=== PATIENT | female | born 1980 | race Caucasian/White ===

== ENCOUNTER → 2017-11-26 12:02 | Outpatient (CLI) | payer OTHER, SELFPAY | PROVIDERS: PCP Physician Assistant; Visit Provider Physician Assistant | DX: R00.2 Palpitations (principal) | CPT/HCPCS: 93225; 93226 ==

== ENCOUNTER → 2018-03-30 14:31 | Outpatient (REF) | payer OTHER, SELFPAY ==
[2018-03-30 18:44] LABS: Basophils % 0.5 % (0.1-2.0); Eosinophils # 0.1 K/mm3 (0.0-0.4); Eosinophils % 1.5 % (0.1-12.0); Hematocrit 38.8 % (37.0-47.0); Hemoglobin 13.1 g/dL (12.2-16.2); Lymphocytes # 1.7 K/mm3 (0.7-4.5); Lymphocytes % 30.7 K/mm3 (10-50); Mean Corpuscular HGB Conc 33.8 g/dL (31.8-35.4); Mean Corpuscular Hemoglobin 30.8 pg (27.0-31.2); Mean Corpuscular Volume 91.2 fl (81-99); Mean Platelet Volume 8.4 fl (7.4-10.4); Monocytes # 0.3 K/mm3 (0.1-1.0); Monocytes % 4.8 % (1.7-9.3); Neutrophils # 3.4 K/mm3 (1.8-7.8); Neutrophils % 62.5 % (37.0-80.0); Platelet Count 307 K/mm3 (142-424); Red Blood Count 4.25 M/mm3 (4.20-5.40); Red Cell Distribution Width 12.3 % (11.5-17.5); White Blood Count 5.4 K/mm3 (4.8-10.8)
[2018-03-30 19:10] LABS: Alanine Aminotransferase 13 U/L (12-78); Albumin Level 4.2 gm/dL (3.4-5.0); Albumin/Globulin Ratio 1.4 (1.1-1.8); Alkaline Phosphatase 67 U/L (46-116); Aspartate Amino Transferase 10 U/L (15-37); Bilirubin,Total 0.6 mg/dL (0.2-1.0); Blood Urea Nitrogen 7 mg/dL (7-18); Calcium 9.1 mg/dL (8.5-10.1); Carbon Dioxide 28 mmol/L (21.0-32.0); Chloride 103 mmol/L (98-107); Creatinine,Serum 0.73 mg/dL (0.55-1.02); Estimated Glomerular Filt Rate 90 ml/min (>60); Free T4 (Free Thyroxine) 0.91 ng/dl (0.76-1.46); GFR (African American) 109 ML/MIN (>60); Globulin 3.1 gm/dl (1.3-3.2); Glucose 90 mg/dL (74-106); Sodium 140 mmol/L (136-145); Thyroid Stimulating Hormone 1.85 uIU/ml (0.358-3.740); Total Protein,Serum 7.3 gm/dL (6.4-8.2)
[2018-04-01 14:52] LABS: Folate 9.5 ng/mL (>3.0); Vitamin B12 1063 pg/mL (232-1245); Vitamin D 25 Hydroxy 27.7 ng/mL (30.0-100.0)
[2018-04-01 14:53] LABS: Thyroid Peroxidase Antibodies 9 IU/mL (0-34)
== END ==
LOC: LAB 14:31
PROVIDERS: Visit Provider Physician Assistant
DX: R20.0 Anesthesia of skin (principal)
CPT/HCPCS: 80053; 82607; 82652; 82746; 84439; 84443; 85025; 86376

== ENCOUNTER → 2018-04-08 09:33 | Outpatient (CLI) | payer OTHER, SELFPAY ==
--- NOTE | 2018-04-08 09:34 | FL_ITS ---
FL upper GI w air HISTORY: Dysphasia, bloating, vomiting ITS.REASON: dysphasia ORDERING PHYSICIAN: Franklyn Man MD PATIENT AGE: 37 years Comparison: None FINDINGS: The esophagus, stomach, and duodenum have an unremarkable appearance. There is no evidence of hiatal hernia. No ulcer or mass evident. No mucosal abnormalities apparent. There is normal peristalsis. The duodenal C-loop is nondisplaced. There is been prior cholecystectomy. FLUOROSCOPY TIME : 1 minute and 46 seconds. IMPRESSION: Negative upper GI
== END ==
PROVIDERS: Family Provider Physician Assistant; PCP Physician Assistant; Visit Provider Surgery
DX: R13.10 Dysphagia, unspecified (principal)
CPT/HCPCS: 74247

== ENCOUNTER → 2018-06-01 13:37 | Outpatient (CLI) | payer OTHER, SELFPAY ==
[2018-06-01 13:51] LABS: Basophils # 0.1 K/mm3 (0-0.2); Basophils % 1.6 % (0.1-2.0); Eosinophils % 0.9 % (0.1-12.0); Hemoglobin 13.6 g/dL (12.2-16.2); Lymphocytes # 1.3 K/mm3 (0.7-4.5); Mean Corpuscular HGB Conc 33.2 g/dL (31.8-35.4); Mean Corpuscular Hemoglobin 30.5 pg (27.0-31.2); Mean Corpuscular Volume 91.7 fl (81-99); Mean Platelet Volume 8.5 fl (7.4-10.4); Monocytes # 0.2 K/mm3 (0.1-1.0); Monocytes % 5.1 % (1.7-9.3); Neutrophils % 55.4 % (37.0-80.0); Platelet Count 285 K/mm3 (142-424); Red Blood Count 4.47 M/mm3 (4.20-5.40); Red Cell Distribution Width 12.4 % (11.5-17.5); White Blood Count 3.6 K/mm3 (4.8-10.8)
[2018-06-01 14:24] LABS: Alanine Aminotransferase 10 U/L (12-78); Albumin Level 4.3 gm/dL (3.4-5.0); Albumin/Globulin Ratio 1.4 (1.1-1.8); Alkaline Phosphatase 61 U/L (46-116); Anion Gap 11.8 mEq/L (5-15); Aspartate Amino Transferase 5 U/L (15-37); Bilirubin,Total 0.7 mg/dL (0.2-1.0); Blood Urea Nitrogen 6 mg/dL (7-18); Calcium 9.2 mg/dL (8.5-10.1); Carbon Dioxide 29 mmol/L (21.0-32.0); Chloride 105 mmol/L (98-107); Creatinine,Serum 0.72 mg/dL (0.55-1.02); Estimated Glomerular Filt Rate 92 ml/min (>60); GFR (African American) 111 ML/MIN (>60); Globulin 3.1 gm/dl (1.3-3.2); Glucose 88 mg/dL (74-106); Potassium 3.8 mmoL/L (3.5-5.1); Sodium 142 mmol/L (136-145); Total Protein,Serum 7.4 gm/dL (6.4-8.2)
[2018-06-01 14:26] LABS: C-Reactive Protein < 0.2 mg/L (0.0-0.9)
[2018-06-01 14:49] LABS: Erythrocyte Sedimentation Rate 1 mm/hr (0-20)
[2018-06-02 13:13] LABS: Anti-Centromere B Antibodies <0.2 AI (0.0-0.9); Anti-Jo-1 <0.2 AI (0.0-0.9); Anti-Smith Antibody <0.2 AI (0.0-0.9); Antichromatin Antibodies <0.2 AI (0.0-0.9); Antiscleroderma-70 Antibodies <0.2 AI (0.0-0.9); RNP Antibodies <0.2 AI (0.0-0.9); Sjogren's Anti-SS-A <0.2 AI (0.0-0.9); Sjogren's Anti-SS-B <0.2 AI (0.0-0.9)
[2018-06-02 13:18] LABS: Anti-DNA (DS) Ab Qn 1 IU/mL (0-9); RA Latex Turbid. <10.0 IU/mL (0.0-13.9)
[2018-06-04 15:19] LABS: Anti-Cyclic Citrullinated Pept 5 units (0-19)
== END ==
PROVIDERS: PCP Physician Assistant; Visit Provider Physician Assistant
DX: M25.50 Pain in unspecified joint (principal); Z82.61 Family history of arthritis
CPT/HCPCS: 80053; 85025; 85651; 86140; 86200; 86225; 86235; 86431

== ENCOUNTER → 2018-07-02 13:04 | Outpatient (CLI) | payer OTHER, SELFPAY | PROVIDERS: PCP Physician Assistant; Visit Provider Internal Medicine | DX: R00.1 Bradycardia, unspecified (principal); R00.2 Palpitations; R07.9 Chest pain, unspecified | CPT/HCPCS: 93270 ==

== ENCOUNTER → 2018-07-06 07:37 | Outpatient (CLI) | payer SELFPAY ==
--- NOTE | 2018-07-06 07:38 | CA_ITS ---
PROCEDURE: 2-D M-mode and color Doppler study INDICATIONS FOR THE TEST: Chest pain + COPD Heart Murmur Tobacco Smoking Palpitations+ Fatigue Syncope Edema Hypertension Diabetes Mellitus Rheumatic Fever SOB KNIGHT Obesity Hyperlipidemia Family History HD Additional History BREAST IMPLANTS PATIENT INFORMATION HEIGHT: 63 WEIGHT:150 GENDER: Female B/P:113/71 2-D/M-MODE INTERPRETATION: 2-D MEASUREMENTS OBSERVED VALUES IN CMS Right Ventricular Dimension (RVDd) 2.2 Interventricular Septum (Thickness)(IVsd) 0.9 Left Ventricular Internal Dimensions(LVIDd) 4.6 Left Ventricular Posterior Wall (Thickness)(LVPWd) 0.4 Aortic Root 2.6 Aortic Cusp Separation 1.9 Left Atrial Dimensions (LAD) 3.1 2D 1. Left atrium is normal size, left ventricle is normal size, there is no concentric left ventricular hypertrophy, visually estimated ejection fraction 55% with no regional wall motion abnormality. 2. The right atrium and right ventricle are normal size and contractility. 3. The aortic, mitral and tricuspid valvular grossly normal. 4. The pulmonic valve is poorly visualized. 5. No significant pericardial effusion noted. DOPPLER INTERROGATION: Doppler interrogation of the aortic, mitral and tricuspid valvular presence of mild mitral and tricuspid regurgitation, tricuspid regurgitation jet velocity is inadequate for calculation of the right ventricular systolic pressure, diastolic parameters are within normal range. CONCLUSION: 1. Normal left ventricular size, preserved left ventricular systolic function, visually estimated ejection fraction of 55% with no regional wall motion abnormality, diastolic parameters are within normal range. 2. Mild mitral and tricuspid regurgitation 3. No significant pericardial effusion noted.
== END ==
PROVIDERS: PCP Physician Assistant; Visit Provider Internal Medicine
DX: R00.1 Bradycardia, unspecified (principal); R00.2 Palpitations; R07.9 Chest pain, unspecified
CPT/HCPCS: 93306

== ENCOUNTER → 2018-09-09 18:56 | Outpatient (CLI) | payer BC, SELFPAY ==
[2018-09-09 19:17] LABS: Basophils % 0.9 % (0.1-2.0); Eosinophils # 0.1 K/mm3 (0.0-0.4); Eosinophils % 2.2 % (0.1-12.0); Hematocrit 38.3 % (37.0-47.0); Hemoglobin 12.5 g/dL (12.2-16.2); Lymphocytes # 1.3 K/mm3 (0.7-4.5); Lymphocytes % 32.4 % (10-50); Mean Corpuscular HGB Conc 32.8 g/dL (31.8-35.4); Mean Corpuscular Hemoglobin 30.5 pg (27.0-31.2); Mean Corpuscular Volume 92.9 fl (81-99); Mean Platelet Volume 7.8 fl (7.4-10.4); Monocytes # 0.2 K/mm3 (0.1-1.0); Monocytes % 5.8 % (1.7-9.3); Neutrophils # 2.4 K/mm3 (1.8-7.8); Neutrophils % 58.7 % (37.0-80.0); Platelet Count 316 K/mm3 (142-424); Red Blood Count 4.12 M/mm3 (4.20-5.40); Red Cell Distribution Width 12.8 % (11.5-17.5); White Blood Count 4.1 K/mm3 (4.8-10.8)
[2018-09-09 20:03] LABS: Alanine Aminotransferase 19 U/L (12-78); Albumin Level 4.2 gm/dL (3.4-5.0); Albumin/Globulin Ratio 1.4 (1.1-1.8); Alkaline Phosphatase 63 U/L (46-116); Anion Gap 14.2 mEq/L (5-15); Aspartate Amino Transferase 7 U/L (15-37); Bilirubin,Total 0.7 mg/dL (0.2-1.0); Blood Urea Nitrogen 11 mg/dL (7-18); Calcium 9.3 mg/dL (8.5-10.1); Carbon Dioxide 28 mmol/L (21.0-32.0); Chloride 102 mmol/L (98-107); Chol/HDL Ratio 2.6 (1-3.5); Cholesterol 158 mg/dL (140-200); Creatinine,Serum 0.75 mg/dL (0.55-1.02); Estimated Glomerular Filt Rate 87 ml/min (>60); GFR (African American) 106 ML/MIN (>60); Glucose 98 mg/dL (74-106); HDL Cholesterol 60 mg/dL (29-89); LDL Cholesterol 87 mg/dL (0-130); Potassium 4.2 mmoL/L (3.5-5.1); Sodium 140 mmol/L (136-145); T4 (Thyroxine) 7.7 ug/dl (4.7-13.3); Thyroid Stimulating Hormone 1.16 uIU/ml (0.358-3.740); Total Protein,Serum 7.2 gm/dL (6.4-8.2); Triglycerides 53 mg/dL (30-200); VLDL Cholesterol 11 mg/dL (0-40)
[2018-09-11 11:18] LABS: Vitamin D 25 Hydroxy 33.7 ng/mL (30.0-100.0)
== END ==
PROVIDERS: Visit Provider Physician Assistant
DX: Z00.00 Encounter for general adult medical examination without abnormal findings (principal)
CPT/HCPCS: 80053; 80061; 82652; 84436; 84443; 85025

== ENCOUNTER → 2019-01-05 11:52 | Outpatient (CLI) | payer BC, SELFPAY ==
--- NOTE | 2019-01-05 11:55 | XR_ITS ---
XR KUB HISTORY: ITS.REASON: pain ORDERING PHYSICIAN: Chiara Spears APRN PATIENT AGE: 38 years COMPARISON: None FINDINGS There is minimal lumbar scoliosis convex left. There is mild amount of retained colonic feces. Surgical clips in the right upper quadrant of pelvis are noted. No intestinal obstruction or free air. Small sclerotic focus overlies the left ilium inferiorly in the left femoral neck and may be due to bone islands. There may be a small stone along the lower pole of left kidney at 3 mm. IMPRESSION: 1. Mild fecal stasis. 2. Possible left renal stone
== END ==
PROVIDERS: PCP Nurse Practitioner Family; Visit Provider Nurse Practitioner Family
DX: R10.9 Unspecified abdominal pain (principal); R82.90 Unspecified abnormal findings in urine
CPT/HCPCS: 74018; 87086; 87210

== ENCOUNTER → 2019-02-17 14:25 | Outpatient (CLI) | payer BC, SELFPAY ==
--- NOTE | 2019-02-17 14:27 | CT_ITS ---
CT abdomen pelvis wo con CLINICAL INDICATION: Lower abdominal pain, possible renal calculi. ITS.REASON: pain ORDERING PHYSICIAN: Abel Rivera MD PATIENT AGE: 38 years COMPARISON: None TECHNIQUE: Axial images obtained with sagittal and coronal reformats. All CT scans at the facility use one or more dose reduction, viz: automated exposure control, ma/kV adjustment per patient size (including targeted exams where dose is matched to indication, i.e. head), or iterative reconstruction technique. FINDINGS: Lower thorax: Calcified granuloma in the right lung base medially. Bilateral breast implants Postcholecystectomy change. The liver, spleen, adrenal glands, and pancreas have an unremarkable unenhanced appearance. No renal or ureteral calculi. There is minimal prominence of the renal pelves on both sides nonspecific. The urinary bladder has an unremarkable appearance. No evidence of appendicitis, diverticulitis, intestinal structures, or free air. Prior hysterectomy. Surgical clips are present in both sides of the pelvis. No pelvic mass abnormal fluid collection or focal inflammatory change. There is a small approximately 6 mm hyperdensity in the central vaginal region etiology indeterminate. No acute bony findings. There are a few scattered sclerotic foci noted in the pelvis and left hip which may be due to small bone islands. IMPRESSION: No acute abdominal or pelvic findings. No renal or ureteral calculi. There is minimal prominence of both renal pelves which is nonspecific.
== END ==
PROVIDERS: PCP Nurse Practitioner Family; Visit Provider Urology
DX: N20.0 Calculus of kidney (principal); R10.9 Unspecified abdominal pain
CPT/HCPCS: 74176

== ENCOUNTER → 2019-04-20 16:38 | Outpatient (CLI) | payer BC, SELFPAY ==
[2019-04-20 17:02] LABS: Basophils # 0.1 K/mm3 (0-0.2); Eosinophils # 0.1 K/mm3 (0.0-0.4); Eosinophils % 1.6 % (0.1-12.0); Hematocrit 38.7 % (37.0-47.0); Hemoglobin 12.8 g/dL (12.2-16.2); Lymphocytes # 1.7 K/mm3 (0.7-4.5); Lymphocytes % 33.9 % (10-50); Mean Corpuscular HGB Conc 33.2 g/dL (31.8-35.4); Mean Corpuscular Hemoglobin 30.1 pg (27.0-31.2); Mean Corpuscular Volume 90.6 fl (81-99); Mean Platelet Volume 7.9 fl (7.4-10.4); Monocytes # 0.3 K/mm3 (0.1-1.0); Monocytes % 5.6 % (1.7-9.3); Neutrophils # 2.9 K/mm3 (1.8-7.8); Neutrophils % 57.8 % (37.0-80.0); Platelet Count 305 K/mm3 (142-424); Red Blood Count 4.27 M/mm3 (4.20-5.40); Red Cell Distribution Width 12.5 % (11.5-17.5)
[2019-04-22 16:41] LABS: Peripheral Smear Review Scanned Result
== END ==
PROVIDERS: Visit Provider Physician Assistant
DX: D72.9 Disorder of white blood cells, unspecified (principal)
CPT/HCPCS: 85025

== ENCOUNTER → 2020-04-21 10:01 | Outpatient (CLI) | payer OTHER, SELFPAY ==
--- NOTE | 2020-04-21 10:09 | XR_ITS ---
PROCEDURE: XR ELBOW RT MIN 3V CLINICAL INDICATION: right elbow pain COMPARISON: No exams were available for comparison FINDINGS: No fracture or dislocation. No lytic or blastic change. There is normal mineralization. The joint spaces are well-preserved. No significant degenerative/arthritic changes. No erosive changes evident. Other findings:None. IMPRESSION: No acute findings. Dictated by: Dr. Skip Marino MD 04/21/2020 10:27 Dr. Skip Marino MD in [place] 04/21/2020 10:27
== END ==
PROVIDERS: PCP Physician Assistant; Visit Provider Orthopaedic Surgery
DX: M77.11 Lateral epicondylitis, right elbow (principal); H93.19 Tinnitus, unspecified ear
CPT/HCPCS: 73080

== ENCOUNTER 2020-05-16 16:56 | Emergency (ER) | payer OTHER, SELFPAY ==
[2020-05-16 17:33] VITALS: BP 126/88; PULSE 71; RESP 21; TEMP 36.9; O2SAT 98; BMI 24.4
--- NOTE | 2020-05-16 17:37 | HMH.EDUTC ---
[facility] [place] Disposition Clinical Impression: Encounter for laboratory testing for COVID-19 virus Disposition: Home, Self-Care Condition on Discharge: Good Instructions: Preventing the Spread of Coronavirus Discharge Instructions Additional Instructions: *Monitor Temp, Over the counter Motrin or Tylenol as directed/as needed Tylenol every 4 hours and Motrin every 6 hours (as long as your family doctor has told you that you can take it) for fever or pain. and straight to ER if unable to lower temp less than 101.0 after medication given *Warm salt water gargles may help to soothe the throat *Throat Lozenges *Warm fluids like tea with honey may help to soothe the throat *Sleep elevated *Humidifier/Vaporizer Follow up IMMEDIATELY for new or worsening symptoms or no Noticeable improvement over the next 48-72 hours. 911 for difficulty breathing or swallowing You was tested for today for COVID19 your test result should be back later this evening, you may call back later this evening to see if your test results are back and the result You was given a handout with instructions for Self Quarantine and Self isolation for while you wait on test results and what to do if they are positive Referrals: Lizette Leon PA [Primary Care Provider] - As needed Forms: Work/School Release Time of Disposition: 17:58 Medical Decision Making - Roger Inquiry Pt receiving controlled substance: No Roger was queried for this patient: No Vital Signs: 05/16/20 17:33 Temperature 98.4 F Temperature Source Oral Pulse Rate [Right Brachial] 71 Respiratory Rate 21 Blood Pressure [Right Arm] 126/88 Blood Pressure Mean [Right Arm] 100 Blood Pressure Source [Right Arm] Automatic Cuff Blood Pressure Position [Right Arm] Sitting 02 Sat by Pulse Oximetry 98 Oxygen Delivery Method Room Air Orders (Tests/Meds): ORDERS Category Date Time Status Covid-19 Nasal PCR ([facility]) Routine Lab 05/16/20 17:30 Received [facility] [place] HPI - General Stated complaint: Sore throat,SOB,Weakness,Wants COV test Time Seen by Provider: 05/16/20 17:37 Mode of Arrival: Ambulatory Source of Information: Patient Limitations: No Limitations Description of Symptoms (Recalled from Triage Doc. by RN): PATIENT REQUESTING COVID TEST. DENIES SYMPTOMS OR ANY KNOWN DIRECT EXPOSURE HEENT Symptoms (Recalled from RN notes): No Resp Symptoms (Recalled from RN notes): No Skin Symptoms (Recalled from RN notes): No MS Symptoms (Recalled from RN notes): No Functional Status (Recalled from RN notes): WNL - History of Present Illness Provider Complaint: Patient states that she has been around several people that is now in quarantine for being around someone that is positive for COVID States she has had cough on and off and feeling achy all over so today she was still feeling achy and wanted to come in and get tested for COVID - Related Data Allergies Allergy/AdvReac Type Severity Reaction Status Date / Time No Known Allergies Allergy Verified 04/21/20 11:44 - Worker's Comp Is this a Worker's Comp case?: No [facility] History - Hepatitis A Screen Drug use history?: No High risk sexual behaviors?: No History of sexually transmitted infection?: No Currently employed?: No Childcare worker?: No Do you have indoor plumbing?: Yes Do you have electricity?: Yes Attestation statement:: This patient has been screened for Hepatitis A risk factors. I have reviewed the patient's past medical history: Yes Medical History: Reports:: Anxiety, Migraine Denies:: Diabetes Mellitus Type 1, Diabetes Mellitus Type 2, Internal Pacemaker, Lung Disease, Seizures Laterality Cases: Right: Arthroscopy Knee Other Surgeries: Yes: Cholecystectomy, Hysterectomy-Total, Hysterectomy-Partial, Tubal Ligation. No: Pacemaker Amputation: No Fractures: No - Social History Smoking Status: Never smoker Alcohol Intake: never Substance Use Type: denies use Occupational Status: other Housing: house Household Me
[2020-05-16 18:27] VITALS: BP 126/88; PULSE 71; RESP 21; TEMP 36.9; O2SAT 98
== END 2020-05-16 18:30 | disposition home or self-care (01) ==
PROVIDERS: Emergency Provider Nurse Practitioner; PCP Physician Assistant
DX: Z20.828 Contact with and (suspected) exposure to other viral communicable diseases (principal); R06.02 Shortness of breath; F41.9 Anxiety disorder, unspecified; G43.709 Chronic migraine without aura, not intractable, without status migrainosus
CPT/HCPCS: 99201; U0003

== ENCOUNTER 2020-05-23 15:30 | Outpatient (RCR) | payer OTHER, SELFPAY ==
--- NOTE | 2020-04-25 16:12 | HMH.OTOPEV ---
OT Inpatient Evaluation Rehab OT Outpatient Eval Start: 04/25/20 16:00 Freq: Status: Active Protocol: Document 04/25/20 16:00 LISBETH (Rec: 04/25/20 16:12 LISBETH [id number]) Electronically Signed By Brianne Islas OT 04/25/20 16:00 Outpatient Therapy Subjective History Subjective History 39 year old female referred to OP OT services for R tennis elbow. Patient verbalize having pain in R elbow since December 2019. Patient recieved x- ray on 04/21/20 with no acute findings. Patient seen ortho on 04/21/20 and referred patient to OP services with follow up in 6 weeks. Patient verbalize having increase pain levels at night and difficulty holding on to weighted household items such as tea pitcher. Chief Complaint Pain Symptom Type Ache Symptoms Relieved By Nothing Prior Functional Limitations None Current Functional Limitations Reaching,Lifting,Sleeping Symptom Description Constant and Continuous, Constant but Variable Level of pain today (0-10) 3 Pain scale - at its best (0-10) 3 Pain scale - at its worst (0-10) 8 Shoulder/Elbow Eval Shoulder Objective Measurements Elbow Objective Measurements Elbow Special Tests Resistive Tennis Elbow (Cozen's) Test Positive Right Wrist/Hand Eval Wrist Manual Muscle Testing Right Wrist Extension Strength Grade 3+ Fair+ Wrist Flexion Strength Grade 3+ Fair+ Plastic Production Machine Setter/Pinch Strength Plastic Production Machine Setter Strength Measurement (lbs) 40 Left Plastic Production Machine Setter Strength Measurement (lbs) 80 OT Outpatient Assessment Impairments Problems/Impairments Palpation Tenderness,Impaired Range of Motion,Impaired Strength,Impaired Lifting, Subjective C/O Pain Prognosis Rehab Potential Good Clinical Impression Consistent with Diagnosis Yes Short Term Goals Number of Weeks 2 Increase Strength Yes: R passenger barge master strength to 50# and R wrist flex/extend: 3+ to 4-/5 Decrease Subjective C/O Pain Yes: 6/10 at worst Patient to be Ind w/ HEP Yes: Isometric exer Patient to be Ind w/ Advanced HEP Yes: strengthening Deputy Controller Goals Number of Weeks 4 Increase Strength Yes: R passenger barge master strength to 60# and R wrist flex/extend 4- to
== END 2020-07-04 10:16 | disposition home or self-care (01) ==
LOC: OT 15:30
PROVIDERS: PCP Physician Assistant; Visit Provider Orthopaedic Surgery
DX: M77.11 Lateral epicondylitis, right elbow (principal)
CPT/HCPCS: 97014; 97035; 97110; 97140; 97165; 97530; G0283

== ENCOUNTER 2020-05-26 14:50 | Emergency (ER) | payer OTHER, SELFPAY ==
--- NOTE | 2020-05-26 15:25 | HMH.EDUTC ---
[facility] [place] Disposition Clinical Impression: Fever Qualifiers: Fever type: unspecified Qualified Code(s): R50.9 - Fever, unspecified Disposition: Home, Self-Care Condition on Discharge: Good Instructions: Preventing the Spread of Coronavirus Discharge Instructions Additional Instructions: You have been tested for COVID19. Your test results should be back later tonight. Please isolate yourself as if you are positive until test results received. Referrals: Lizette Leon PA [Primary Care Provider] - Time of Disposition: 15:59 Medical Decision Making - Roger Inquiry Pt receiving controlled substance: No Vital Signs: 05/26/20 15:28 Temperature 98.4 F Temperature Source Oral Pulse Rate [Right Brachial] 70 Respiratory Rate 19 Blood Pressure [Right Arm] 113/68 Blood Pressure Mean [Right Arm] 83 Blood Pressure Source [Right Arm] Automatic Cuff Blood Pressure Position [Right Arm] Sitting 02 Sat by Pulse Oximetry 98 Oxygen Delivery Method Room Air - Lab Data Lab results reviewed: Yes: I reviewed the patient's lab results. Orders (Tests/Meds): ORDERS Category Date Time Status Covid-19 Nasal PCR ([facility]) Routine Lab 05/26/20 15:30 Received [facility] [place] HPI - General Stated complaint: strept test sore throat fever Time Seen by Provider: 05/26/20 15:25 - History of Present Illness Provider Complaint: Fever, sore throat, cough X 2 days. Has had some body aches and chills. No vomiting or diarrhea. No loss of taste or smell. Children had strep last week. Onset (ago): day(s) (2) Location: mouth Relieving factors: none Exacerbating factors: none Associated symptoms: fever/chills Treatments prior to arrival: none - Related Data Home Medications Medication Instructions Recorded Confirmed topiramate 25 mg tablet 25 mg PO BID 05/26/20 05/26/20 Allergies Allergy/AdvReac Type Severity Reaction Status Date / Time No Known Allergies Allergy Verified 05/26/20 14:20 [facility] History - Hepatitis A Screen Attestation statement:: This patient has been screened for Hepatitis A risk factors. I have reviewed the patient's past medical history: Yes Medical History: Reports:: Anxiety, Migraine Denies:: Diabetes Mellitus Type 1, Diabetes Mellitus Type 2, Internal Pacemaker, Lung Disease, Seizures Laterality Cases: Right: Arthroscopy Knee Other Surgeries: Yes: Cholecystectomy, Hysterectomy-Total, Hysterectomy-Partial, Tubal Ligation. No: Pacemaker Amputation: No Fractures: No Comment: breast augmentation, - Social History Smoking Status: Never smoker Alcohol Intake: never Substance Use Type: denies use Occupational Status: employed Housing: house Household Members: children, spouse - Psychiatric History Pschychiatric History:: Reports:: Anxiety Family Hx:: Cancer, Coronary Artery Disease, Thyroid Disorder Comment: CELIAC DISEASE ,RA, SISTER HAS BREAST CANCER ROS Obtained: Yes All systems reviewed & no additional complaints - Constitutional Constitutional: Reports body ache, Reports chills, Reports fever(s) - ENT Ears, Nose, Mouth, and Throat: Reports sore throat - Respiratory Respiratory: Yes cough Physical Exam - General General appearance: alert, in no apparent distress - Head Head exam: atraumatic, normocephalic, normal inspection - Eye Eye exam: Present: normal appearance, PERRL, EOMI - ENT ENT exam: Present: normal exam, normal oropharynx, mucous membranes moist, TM's normal bilaterally, normal external ear exam - Neck Neck exam: Present: normal inspection, full ROM, trachea midline. Absent: meningismus, lymphadenopathy - Chest Chest inspection: Present: normal inspection, symmetric chest wall rise. Absent: tenderness - Respiratory Respiratory exam: Present: normal lung sounds bilaterally. Absent: respiratory distress - Cardiovascular Cardiovascular exam: Present: regular rate, normal rhythm. Absent: JVD - Abdominal Exam Abdominal exam: Present:
[2020-05-26 15:28] VITALS: BP 113/68; PULSE 70; RESP 19; TEMP 36.9; O2SAT 98; BMI 24.6
[2020-05-26 16:08] VITALS: BP 113/68; PULSE 70; RESP 19; TEMP 36.9; O2SAT 98
[2020-05-26 18:08] LABS: UTC Influenza A Antigen Negative (Negative); UTC Influenza B Antigen Negative (Negative)
[2020-05-26 18:09] LABS: UTC Strep Screen (Rapid) Negative (Negative)
--- NOTE | 2020-05-26 19:24 | PC.NURSE ---
PT CALLED AND NOTIFIED OF POSITIVE COVID TEST
== END 2020-05-26 16:10 | disposition home or self-care (01) ==
PROVIDERS: Emergency Provider Physician Assistant; PCP Physician Assistant
DX: U07.1 COVID-19 (principal); G43.709 Chronic migraine without aura, not intractable, without status migrainosus; F41.9 Anxiety disorder, unspecified; Z79.899 Other long term (current) drug therapy
CPT/HCPCS: 87804; 87880; 99202; U0003

== ENCOUNTER 2020-06-05 13:18 | Emergency (ER) | payer OTHER, SELFPAY ==
[2020-06-05 13:30] VITALS: BP 126/86; PULSE 60; RESP 20; TEMP 36.7; O2SAT 100; BMI 23.2
--- NOTE | 2020-06-05 13:42 | HMH.EDUTC ---
[facility] [place] Disposition Clinical Impression: COVID-19 Disposition: Home, Self-Care Condition on Discharge: Good Instructions: Preventing the Spread of Coronavirus Discharge Instructions Additional Instructions: Drink plenty of fluids. Take tylenol for pain or fever. Follow up with your regular doctor. GO TO THE ER FOR ANY WORSENING SYMPTOMS Referrals: Lizette Leon PA [Primary Care Provider] - Time of Disposition: 13:43 Medical Decision Making - Medical Records Medical records reviewed: No: I reviewed the patient's medical records. - Roger Inquiry Pt receiving controlled substance: No Vital Signs: 06/05/20 13:30 06/05/20 13:50 Temperature 98.1 F 98.1 F Temperature Source Oral Pulse Rate 60 Pulse Rate [Left Brachial] 60 Respiratory Rate 20 20 Blood Pressure 126/86 Blood Pressure [Left Arm] 126/86 Blood Pressure Mean [Left Arm] 99 Blood Pressure Source [Left Arm] Automatic Cuff Blood Pressure Position [Left Arm] Sitting 02 Sat by Pulse Oximetry 100 Oxygen Delivery Method Room Air Orders (Tests/Meds): ORDERS Category Date Time Status Covid-19 Nasal PCR ([facility]) Routine Lab 06/05/20 13:35 Received [facility] [place] HPI - General Stated complaint: covid positive Time Seen by Provider: 06/05/20 13:42 - History of Present Illness Provider Complaint: She tested positive for covid last week. She states that she has not had any symptoms in the past 2 days. - Related Data Previous Rx's Medication Instructions Recorded topiramate 25 mg tablet 25 mg PO BID #180 tab 05/26/20 Allergies Allergy/AdvReac Type Severity Reaction Status Date / Time No Known Allergies Allergy Verified 05/26/20 14:20 [facility] History - Hepatitis A Screen Attestation statement:: This patient has been screened for Hepatitis A risk factors. I have reviewed the patient's past medical history: Yes Medical History: Reports:: Anxiety, Migraine Denies:: Diabetes Mellitus Type 1, Diabetes Mellitus Type 2, Internal Pacemaker, Lung Disease, Seizures Laterality Cases: Right: Arthroscopy Knee Other Surgeries: Yes: Cholecystectomy, Hysterectomy-Total, Hysterectomy-Partial, Tubal Ligation. No: Pacemaker Amputation: No Fractures: No Comment: breast augmentation, - Social History Smoking Status: Never smoker Alcohol Intake: never Substance Use Type: denies use Occupational Status: other Housing: house Household Members: children, spouse - Psychiatric History Pschychiatric History:: Reports:: Anxiety Family Hx:: Cancer, Coronary Artery Disease, Thyroid Disorder Comment: CELIAC DISEASE ,RA, SISTER HAS BREAST CANCER ROS Obtained: Yes All systems reviewed & no additional complaints - Constitutional Constitutional: Reports system reviewed and no additional complaints, except as docu - Eyes Eyes: Reports system reviewed and no additional complaints, except as docu - ENT Ears, Nose, Mouth, and Throat: Reports system reviewed and no additional complaints, except as docu - Cardiovascular Cardiovascular: Reports system reviewed and no additional complaints, except as docu - Respiratory Respiratory: Yes system reviewed and no additional complaints, except as docu - Gastrointestinal Gastrointestingal: Reports: system reviewed and no additional complaints, except as docu Physical Exam - General General appearance: alert, in no apparent distress - Head Head exam: atraumatic, normocephalic, normal inspection - Eye Eye exam: Present: normal appearance, PERRL, EOMI - ENT ENT exam: Present: normal exam, normal oropharynx, mucous membranes moist, TM's normal bilaterally, normal external ear exam - Neck Neck exam: Present: normal inspection, full ROM, trachea midline. Absent: meningismus, lymphadenopathy - Chest Chest inspection: Present: normal inspection, symmetric chest wall rise. Absent: tenderness - Respiratory Respiratory exam: Present: normal lung sounds bilaterally. A
[2020-06-05 13:50] VITALS: BP 126/86; PULSE 60; RESP 20; TEMP 36.7; O2SAT 100
--- NOTE | 2020-06-06 10:20 | PC.NURSE ---
PATIENT NOTIFIED OF POSITIVE COVID RESULT AT THIS TIME
== END 2020-06-05 13:52 | disposition home or self-care (01) ==
PROVIDERS: Emergency Provider Nurse Practitioner Family; PCP Physician Assistant
DX: U07.1 COVID-19 (principal)
CPT/HCPCS: 99201; U0003

== ENCOUNTER → 2020-06-12 14:30 | Outpatient (CLI) | payer OTHER, SELFPAY | PROVIDERS: PCP Physician Assistant; Visit Provider Physician Assistant | DX: Z20.828 Contact with and (suspected) exposure to other viral communicable diseases (principal); U07.1 COVID-19 | CPT/HCPCS: U0003 ==

== ENCOUNTER → 2020-06-19 08:43 | Outpatient (CLI) | payer OTHER, SELFPAY | PROVIDERS: PCP Physician Assistant; Visit Provider Nurse Practitioner Family | DX: Z20.828 Contact with and (suspected) exposure to other viral communicable diseases (principal); U07.1 COVID-19 | CPT/HCPCS: U0003 ==

== ENCOUNTER → 2020-07-04 13:42 | Outpatient (CLI) | payer OTHER, SELFPAY ==
[2020-07-04 15:29] LABS: Coronavirus 19 IgG Antibody Positive (Negative); Coronavirus 19 IgM Antibody Negative (Negative)
[2020-07-06 10:57] LABS: Covid-19 Nasal PCR Sendout Lex Positive
== END ==
PROVIDERS: PCP Physician Assistant; Visit Provider Physician Assistant
DX: Z20.828 Contact with and (suspected) exposure to other viral communicable diseases (principal); U07.1 COVID-19
CPT/HCPCS: 86328; U0004

== ENCOUNTER → 2020-07-11 09:57 | Outpatient (CLI) | payer OTHER, SELFPAY ==
[2020-07-13 08:59] LABS: Covid-19 Nasal PCR Sendout Lex INDETERMINATE
== END ==
PROVIDERS: PCP Physician Assistant; Visit Provider Physician Assistant
DX: Z03.818 Encounter for observation for suspected exposure to other biological agents ruled out (principal)
CPT/HCPCS: U0004

== ENCOUNTER → 2020-07-13 11:53 | Outpatient (CLI) | payer OTHER, SELFPAY ==
[2020-07-14 11:29] LABS: Covid-19 Nasal PCR Sendout Lex Not Detected
== END ==
PROVIDERS: PCP Physician Assistant; Visit Provider Physician Assistant
DX: Z03.818 Encounter for observation for suspected exposure to other biological agents ruled out (principal)
CPT/HCPCS: U0004

== ENCOUNTER → 2020-08-03 14:50 | Outpatient (CLI) | payer OTHER, SELFPAY ==
[2020-08-03 15:57] LABS: Basophils # 0.1 K/mm3 (0-0.2); Basophils % 1.6 % (0.1-2.0); Eosinophils # 0.1 K/mm3 (0.0-0.4); Eosinophils % 2.1 % (0.1-12.0); Hematocrit 44.1 % (37.0-47.0); Hemoglobin 13.6 g/dL (12.2-16.2); Lymphocytes # 1.6 K/mm3 (0.7-4.5); Mean Corpuscular HGB Conc 30.8 g/dL (31.8-35.4); Mean Corpuscular Hemoglobin 29.6 pg (27.0-31.2); Mean Corpuscular Volume 96.1 fl (81-99); Mean Platelet Volume 8.6 fl (7.4-10.4); Monocytes # 0.2 K/mm3 (0.1-1.0); Neutrophils # 2.5 K/mm3 (1.8-7.8); Neutrophils % 55.4 % (37.0-80.0); Platelet Count 333 K/mm3 (142-424); Red Blood Count 4.59 M/mm3 (4.20-5.40); Red Cell Distribution Width 12.6 % (11.5-17.5); White Blood Count 4.5 K/mm3 (4.8-10.8)
[2020-08-03 16:05] LABS: Alanine Aminotransferase 16 U/L (12-78); Albumin Level 4.8 g/dl (3.5-5.0); Albumin/Globulin Ratio 1.7 (1.1-1.8); Alkaline Phosphatase 60 U/L (38-126); Anion Gap 15.9 mEq/L (5-15); Aspartate Amino Transferase 22 U/L (14-36); Bilirubin,Total 0.8 mg/dl (0.2-1.3); Blood Urea Nitrogen 9 mg/dl (7-17); Calcium 9.8 mg/dl (8.4-10.2); Carbon Dioxide 23 mmol/L (22.0-30.0); Chloride 105 mmol/L (98-107); Chol/HDL Ratio 2.3 (1-3.5); Cholesterol 167 mg/dl (140-200); Estimated Glomerular Filt Rate 80 ml/min (>60); GFR (African American) 97 ML/MIN (>60); Globulin 2.9 g/dL (1.3-3.2); Glucose 106 mg/dl (74-100); HDL Cholesterol 74 mg/dl (40-60); Potassium 3.9 mmoL/L (3.5-5.1); Sodium 140 mmol/L (136-145); Total Protein,Serum 7.7 g/dl (6.3-8.2); Triglycerides 98 mg/dl (30-150); VLDL Cholesterol 20 mg/dL (0-40)
[2020-08-03 16:16] LABS: Direct LDL Cholesterol 74.63 mg/dL (100-129)
[2020-08-03 16:22] LABS: Free T4 (Free Thyroxine) 0.94 ng/dl (0.78-2.19)
[2020-08-03 16:23] LABS: 25-OH Vitamin D, Total 37.8 ng/mL (30-100)
[2020-08-03 16:36] LABS: Thyroid Stimulating Hormone 0.91 uIU/mL (0.465-4.68)
== END ==
PROVIDERS: Visit Provider Physician Assistant
DX: R53.83 Other fatigue (principal); E55.9 Vitamin D deficiency, unspecified
CPT/HCPCS: 80053; 80061; 82306; 84439; 84443; 85025

== ENCOUNTER → 2020-08-08 11:52 | Outpatient (CLI) | payer OTHER, SELFPAY ==
[2020-08-08 14:05] LABS: Coronavirus 19 IgG Antibody Positive (Negative); Coronavirus 19 IgM Antibody Negative (Negative)
== END ==
PROVIDERS: PCP Physician Assistant; Visit Provider Physician Assistant
DX: Z86.16 Personal history of COVID-19
CPT/HCPCS: 36415; 86328

== ENCOUNTER → 2020-08-17 09:26 | Outpatient (CLI) | payer OTHER, SELFPAY ==
--- NOTE | 2020-08-17 09:29 | MM_ITS ---
PROCEDURE: MM DIG SC MAMM IMPLANT BI CAD Digital Breast Tomosynthesis Included CLINICAL INDICATION: screening There is a history of breast cancer in the patient's sister diagnosed at age 38. The patient has bilateral breast implants. COMPARISON: MG DMSB DIG MAMM-SCREEN CELINE from 05/15/2015 MG DMDXUR DIG MAMM-DX UNI-RT from 06/12/2015 MG DMSI DIG MAMM-SCREEN IMPLANT W/CAD from 06/09/2017 TECHNIQUE: Standard CC and MLO images and 3D Tomosynthesis was obtained. R2 CAD reviewed. Additional Abel views were performed as well. FINDINGS: The bilateral breast implants appear intact with no evidence of leakage. Moderate diffuse heterogenic fibroglandular densities are seen in the [place] breast tissue around the implants.. There is no suspicious lesion and no suspicious microcalcifications. IMPRESSION: Stable exam with no suspicious lesions seen BI-RAD Category: 2 Benign Finding(s) FOLLOW-UP: 1YR 1 Year Follow-up (A letter has been sent to the patient regarding results of the study.) Dictated by: Dr. Skip Marino MD 08/30/2020 11:01 Dr. Skip Marino MD in [place] 08/30/2020 11:01
== END ==
PROVIDERS: PCP Physician Assistant; Visit Provider Physician Assistant
DX: Z12.31 Encounter for screening mammogram for malignant neoplasm of breast (principal)
CPT/HCPCS: 77063; 77067

== ENCOUNTER 2020-08-21 18:54 | Emergency (ER) | payer OTHER, SELFPAY ==
[2020-08-21 18:55] VITALS: BP 129/84; PULSE 66; RESP 16; TEMP 37; O2SAT 100; BMI 24.0
--- NOTE | 2020-08-21 19:20 | CT_ITS ---
PROCEDURE: CT FACIAL BONES WO CON CLINICAL HISTORY: fall Posttraumatic pain, right-sided facial injury COMPARISON: No exams were available for comparison TECHNIQUE: Axial images obtained with sagittal and coronal reformats. All CT scans at the facility use one or more dose reduction, viz: automated exposure control, ma/kV adjustment per patient size (including targeted exams where dose is matched to indication, i.e. head), or iterative reconstruction technique. FINDINGS: Bones: Unremarkable. No fracture, lytic, or blastic changes evident. Extracranial soft tissues: Unremarkable. Sinuses: Unremarkable. No air-fluid levels or significant mucosal thickening. Orbits: Unremarkable. Other: Mild TMJ arthropathy on the left. Small bilateral dina bullosa IMPRESSION: No acute finding Dictated by: Wang Farfan MD 08/22/2020 06:21 Wang Farfan MD in [place] 08/22/2020 06:21
--- NOTE | 2020-08-21 19:20 | CT_ITS ---
PROCEDURE: CT HEAD/BRAIN WO CON CLINICAL INDICATION: fall Head injury with headache/pain, contusion, abrasion or hematoma COMPARISON: CT HEADWO CT head/brain wo con from 04/29/2018 TECHNIQUE: Axial images obtained. All CT scans at the facility use one or more dose reduction, viz: automated exposure control, ma/kV adjustment per patient size (including targeted exams where dose is matched to indication, i.e. head), or iterative reconstruction technique. FINDINGS: No midline shift, mass effect, intracranial hemorrhage, hydrocephalus, or extra-axial fluid collection is evident. The calvarium has an unremarkable appearance. No mastoid effusion. No sinus air-fluid level. IMPRESSION: No acute intracranial finding Dictated by: Wang Farfan MD 08/22/2020 06:18 Wang Farfan MD in [facility] 08/22/2020 06:18
[2020-08-21 20:00] VITALS: BP 104/67; PULSE 65; RESP 14; O2SAT 100
--- NOTE | 2020-08-21 20:12 | CT_ITS ---
PROCEDURE: CT CERVICAL SPINE WO CON CLINICAL INDICATION: fall Neck injury with pain, contusion/abrasion or hematoma, cervical sprain/strain the COMPARISON: CT SPCERVWO CT cervical spine wo con from 01/12/2018 TECHNIQUE: Axial images obtained with sagittal and coronal reformats. All CT scans at the facility use one or more dose reduction, viz: automated exposure control, ma/kV adjustment per patient size (including targeted exams where dose is matched to indication, i.e. head), or iterative reconstruction technique. Axial spiral CT scanning performed of the cervical spine beginning at the base of the skull and continuing to the upper T-spine. 3-D multiplanar reconstruction with 3-D manipulation of volumetric data set in image rendering was completed by the radiologist and/or technologist with the supervision of the radiologist on independent workstation. FINDINGS: There is straightening/reversal of the normal lordosis which may be due to patient positioning or muscle spasm. No fracture or dislocation. Lung apices are clear. Scattered small cervical lymph nodes are present. IMPRESSION: Slight reversal cervical lordosis which may be due to patient positioning or muscle spasm. No acute fracture. Dictated by: Wang Farfan MD 08/22/2020 06:16 Wang Farfan MD in [facility] 08/22/2020 06:16
--- NOTE | 2020-08-21 20:12 | [facility].EDFALL ---
ED Disposition Clinical Impression: Concussion without loss of consciousness Qualifiers: Encounter type: initial encounter Qualified Code(s): S06.0X0A - Concussion without loss of consciousness, initial encounter Blunt trauma of face Qualifiers: Encounter type: initial encounter Qualified Code(s): S09.93XA - Unspecified injury of face, initial encounter Lumbar back sprain Qualifiers: Encounter type: initial encounter Qualified Code(s): S33.5XXA - Sprain of ligaments of lumbar spine, initial encounter Disposition: Home, Self-Care Condition on Discharge: Good Instructions: DI for Concussion Additional Instructions: ice and see pcp for follow up Referrals: Lizette Leon PA [Primary Care Provider] - - Critical Care Critical Care Time: No Attestation: On 08/21/20, the high probability of a clinically significant, sudden or life threatening deterioration of the following system(s) required my full and direct attention, intervention and personal management. The time I documented below is in addition to time spent performing reported procedures but includes the following listed in this critical care notation. Medical Decision Making - Medical Records Medical records reviewed: Yes: I reviewed the patient's medical records. - Roger Inquiry Pt receiving controlled substance: No Vital Signs: 08/21/20 18:55 08/21/20 20:00 Temperature 98.6 F Temperature Source Oral Pulse Rate [Left Radial] 66 65 Respiratory Rate 16 14 Blood Pressure [Right Arm] 129/84 104/67 L Blood Pressure Mean [Right Arm] 99 79 Blood Pressure Source [Right Arm] Automatic Cuff Automatic Cuff Blood Pressure Position [Right Arm] Sitting Supine 02 Sat by Pulse Oximetry 100 100 Oxygen Delivery Method Room Air Room Air - Lab Data Lab results reviewed: Yes: I reviewed the patient's lab results. Orders (Tests/Meds): ED MEDICATIONS Discontinued Medications Generic Name Dose Route Start Last Admin Trade Name Freq PRN Reason Stop Dose Admin Acetaminophen 1,000 mg 08/21/20 20:06 08/21/20 20:14 Acetaminophen 500mg Tab PO 08/21/20 20:07 1,000 mg ONCE ONE Administration Acetaminophen/Codeine Phosphate 1 severino 08/21/20 21:23 Acetaminophen 300mg W/Codeine 30mg Take Home Pack (6) PO 08/21/20 21:24 ONCE ONE ORDERS Category Date Time Status CT cervical spine wo con Stat Cat Scan 08/21/20 20:[address] facial bones wo con Stat Cat Scan 08/21/20 19:[address] head/brain wo con Stat Cat Scan 08/21/20 19:20 Taken XR lumbar spine min 4V Stat Exams 08/21/20 20:14 Taken - Radiology Data #1 Image(s): L-Spine Image Reviewed: Yes I reviewed the patient's radiology image Preliminary Findings: No Fracture Seen - CT Data CT Scan: Head, C-Spine, Other (facial) Time Received: 21:[address] Reviewed: Yes: I have viewed the radiologist's interpretation Preliminary Findings: No Fracture Seen Medical Decision Narrative: no fx but with blunt trauma Fall HPI - General Chief Complaint: Fall Stated Complaint: Fall off porch;Hit Rt side of face;Dizziness Time Seen by Provider: 08/21/20 20:00 Mode of Arrival: Ambulatory Source of Information: Patient, Relative, Medical Record Limitations: No Limitations Description of Symptoms (Recalled from ER Triage Doc. by RN): Pt states she slipped and fell, hitting the fight side of her face on a weight. Pt denies dizziness, LOC, blurred vision, neck pain. Pt is ambulatory into ED. She c/o a HAMMER and swelling to right side of her face. No open lacerations present. - History of Present Illness HPI Narrative: slipped and fell with head and neck injury and facial trauma - also has back pain with no abd pain or chest pain MD complaint: fall Onset (ago): hour(s) Fall from: standing Fall witnessed: no Place fall occurred: home Loss of consciousness: none Prolonged down time: no Context: tripped/slipped Location of injury: head, face, neck, back Severity: moderat
--- NOTE | 2020-08-21 20:14 | XR_ITS ---
PROCEDURE: XR LUMBAR SPINE MIN 4V CLINICAL INDICATION: FALL Posttraumatic pain COMPARISON: CT ABDPELWO CT abdomen pelvis wo con from 02/17/2019 FINDINGS: Minimal lumbar curvature convex left. Normal alignment. No acute fracture or dislocation. There is mild facet sclerosis at L5-S1. Surgical clips are present in the right upper quadrant and pelvic region. Other findings:None. IMPRESSION: No acute findings. Dictated by: Wang Farfan MD 08/22/2020 05:18 Wang Farfan MD in [facility] 08/22/2020 05:18
[2020-08-21 21:35] VITALS: BP 126/72; PULSE 65; RESP 16; TEMP 36.7; O2SAT 99
== END 2020-08-21 21:37 | disposition home or self-care (01) ==
PROVIDERS: Emergency Provider Emergency Medicine; PCP Physician Assistant
DX: S06.0X0A Concussion without loss of consciousness, initial encounter (principal); S09.93XA Unspecified injury of face, initial encounter; S33.5XXA Sprain of ligaments of lumbar spine, initial encounter; W17.89XA Other fall from one level to another, initial encounter; Y92.019 Unspecified place in single-family (private) house as the place of occurrence of the external cause; F41.9 Anxiety disorder, unspecified; G43.709 Chronic migraine without aura, not intractable, without status migrainosus; Z79.899 Other long term (current) drug therapy
CPT/HCPCS: 70450; 70486; 72110; 72125; 99282

== ENCOUNTER 2020-09-11 16:06 | Emergency (ER) | payer OTHER, SELFPAY ==
[2020-09-11 16:53] VITALS: BP 123/82; PULSE 63; RESP 14; TEMP 36.5; O2SAT 100; BMI 24.7
--- NOTE | 2020-09-11 17:05 | [facility].EDUTC ---
[facility] [place] Impression: Exposure to COVID-19 virus Disposition: Home, Self-Care Condition on Discharge: Good Instructions: DI for COVID-19 (Suspected or Confirmed ), Preventing the Spread of Coronavirus Discharge Instructions Additional Instructions: Drink plenty of fluids. Take tylenol for pain or fever. Return if you begin to have difficulty breathing. Follow up with your regular doctor. GO TO THE ER FOR ANY WORSENING SYMPTOMS Referrals: Lizette Leon PA [Primary Care Provider] - Time of Disposition: 17:09 Medical Decision Making - Medical Records Medical records reviewed: No: I reviewed the patient's medical records. - Roger Inquiry Pt receiving controlled substance: No Vital Signs: 09/11/20 16:53 09/11/20 17:27 Temperature 97.7 F 97.2 F L Temperature Source Tympanic Tympanic Pulse Rate 82 Pulse Rate [Right] 63 Respiratory Rate 14 16 Blood Pressure 151/79 H Blood Pressure [Right Arm] 123/82 Blood Pressure Mean [Right Arm] 95 Blood Pressure Source [Right Arm] Automatic Cuff Blood Pressure Position [Right Arm] Sitting 02 Sat by Pulse Oximetry 100 Oxygen Delivery Method Room Air [facility] [place] - General Stated complaint: Covid Test Time Seen by Provider: 09/11/20 17:05 Mode of Arrival: Ambulatory Source of Information: Patient Limitations: No Limitations Description of Symptoms (Recalled from Triage Doc. by RN): direct exposure to a friend. symptoms include sore throat, cough, soa. HEENT Symptoms (Recalled from RN notes): Yes (sore throat) Resp Symptoms (Recalled from RN notes): Yes (cough & soa) Skin Symptoms (Recalled from RN notes): No MS Symptoms (Recalled from RN notes): No Functional Status (Recalled from RN notes): na - History of Present Illness Provider Complaint: She states that she was exposed to covid about 4 days ago. She has been having a head ache, dry cough and body aches. She states that she had covid-19 in the past, but it was over the 3 months ago - Related Data Previous Rx's Medication Instructions Recorded topiramate 25 mg tablet 25 mg PO BID #180 tab 05/26/20 amitriptyline 25 mg tablet 25 mg PO HS #30 tab 08/24/20 ondansetron 8 mg disintegrating 8 mg PO Q8H PRN #30 tab 08/24/20 tablet Allergies Allergy/AdvReac Type Severity Reaction Status Date / Time No Known Allergies Allergy Verified 09/11/20 16:59 - Worker's Comp Is this a Worker's Comp case?: No [facility] History - Hepatitis A Screen Drug use history?: No High risk sexual behaviors?: No History of sexually transmitted infection?: No Currently employed?: No Childcare worker?: No Do you have indoor plumbing?: Yes Do you have electricity?: Yes Attestation statement:: This patient has been screened for Hepatitis A risk factors. I have reviewed the patient's past medical history: Yes Medical History: Reports:: Anxiety, Migraine Denies:: Cancer, Diabetes Mellitus Type 1, Diabetes Mellitus Type 2, Internal Pacemaker, Lung Disease, MRSA, Seizures Laterality Cases: Right: Arthroscopy Knee Other Surgeries: Yes: Cholecystectomy, Hysterectomy-Total, Hysterectomy-Partial (06/2016), Tubal Ligation. No: Pacemaker Amputation: No Fractures: No Comment: breast augmentation, - Social History Smoking Status: Never smoker Alcohol Intake: never Substance Use Type: denies use Occupational Status: employed Housing: house Household Members: children, spouse - Psychiatric History Pschychiatric History:: Reports:: Anxiety Family Hx:: Cancer, Coronary Artery Disease, Thyroid Disorder Comment: CELIAC DISEASE ,RA, SISTER HAS BREAST CANCER ROS Obtained: Yes All systems reviewed & no additional complaints - Constitutional Constitutional: Reports system reviewed and no additional complaints, except as docu - Eyes Eyes: Reports system reviewed and no additional complaints, except as docu - ENT Ears, Nose, Mouth, and Throat: Reports system reviewed and no additi
[2020-09-11 17:27] VITALS: BP 151/79; PULSE 82; RESP 16; TEMP 36.2
== END 2020-09-11 17:28 | disposition home or self-care (01) ==
PROVIDERS: Emergency Provider Nurse Practitioner Family; PCP Physician Assistant
DX: Z20.822 Contact with and (suspected) exposure to COVID-19 (principal); R05 Cough; G43.709 Chronic migraine without aura, not intractable, without status migrainosus; F41.9 Anxiety disorder, unspecified; Z79.899 Other long term (current) drug therapy
CPT/HCPCS: 99202; G0463; U0003

== ENCOUNTER 2020-09-12 15:30 | Outpatient (RCR) | payer OTHER, SELFPAY ==
--- NOTE | 2020-07-25 14:45 | HMH.OTOPEV ---
OT Inpatient Evaluation Rehab OT Outpatient Eval Start: 07/25/20 14:30 Freq: Status: Active Protocol: Document 07/25/20 14:30 ANNIEASHLEY (Rec: 07/25/20 14:43 STARLATOMEKA [id number]) Electronically Signed By Brianne Islas OT 07/25/20 14:30 Outpatient Therapy Subjective History Subjective History Patient referred to OP OT services for R tennis elbow. Patient previously recieved OP OT services for R tennis elbow from 04/25/20-05/25/20. Patient previously tested positive for covid for ~2 months and unable to attend therapy. However Patient tested negative for covid and continues to verbalize pain in R elbow. Patient verbalize resting elbow, however Patient stated to use R UE to sling eggs out which caused my elbow to feel like it ripped out from my body. Patient verbalize not wearing tennis elbow brace 2* the apperance and making clothes stick out. OT consulted with Patient re: importance of icing, resting and wearing tennis elbow brace to decrease pain. Chief Complaint Pain,Decreased Sandfill Operator Strength Symptom Type Ache Symptoms Relieved By Rest/Positioning Symptoms Aggravated By Physical Activity Prior Functional Limitations Reaching,Lifting,Sleeping Current Functional Limitations Reaching,Lifting,Sleeping Symptom Description Constant and Continuous Level of pain today (0-10) 3 Pain scale - at its best (0-10) 3 Pain scale - at its worst (0-10) 7 Wrist/Hand Eval Wrist Range of Motion Right Wrist Extension Active Range of Motion ( 70 degrees) Wrist Flexion Active Range of Motion ( 80 degrees) Wrist Radial Deviation Active Range of 20 Motion (degrees) Wrist Ulnar Deviation Active Range of 30 Motion (degrees) Forearm Supination Active Range of 90 Motion (degrees) Forearm Pronation Active Range of Motion 90 (degrees) Sandfill Operator/Pinch Strength Left Sandfill Operator Strength Measurement (lbs) 60 Right Sandfill Operator Strength Measurement (lbs) 35 OT Outpatient Assessment Impairments Problems/Impairments Impaired Strength,Subjective C
== END 2020-09-26 15:00 | disposition home or self-care (01) ==
LOC: OT 15:30
PROVIDERS: PCP Physician Assistant; Visit Provider Orthopaedic Surgery
DX: M77.11 Lateral epicondylitis, right elbow (principal)
CPT/HCPCS: 97014; 97035; 97110; 97140; 97164; 97165; 97530; G0283

== ENCOUNTER → 2021-01-31 14:16 | Outpatient (CLI) | payer OTHER, SELFPAY ==
--- NOTE | 2021-01-31 14:21 | XR_ITS ---
PROCEDURE: XR KNEE RT 3V CLINICAL INDICATION: right knee pain COMPARISON: CR [id number] KNEE-4 OR 5 VIEWS-RT from 05/17/2014 CR KNEEAPSB KNEE-AP STANDING-BOTH KNEES from 05/17/2014 FINDINGS: No fracture or dislocation. No lytic or blastic change. There is normal mineralization. The joint spaces are well-preserved. No significant degenerative/arthritic changes. No erosive changes evident. Other findings:None. IMPRESSION: No acute findings. Dictated by: Wang Farfan MD 01/31/2021 17:15 Wang Farfan MD in [facility] 01/31/2021 17:15
--- NOTE | 2021-01-31 14:21 | XR_ITS ---
PROCEDURE: XR MANDIBLE MIN 4V CLINICAL INDICATION: right jawpain COMPARISON: No exams were available for comparison FINDINGS: No fracture or dislocation. No lytic or blastic change. There is normal mineralization. The TMJs are not well displayed but are grossly unremarkable. Other findings:None. IMPRESSION: No acute finding. Consider CT for more thorough evaluation if symptoms persist. Dictated by: Wang Farfan MD 01/31/2021 17:17 Wang Farfan MD in [facility] 01/31/2021 17:17
== END ==
PROVIDERS: PCP Physician Assistant; Visit Provider Physician Assistant
DX: R68.84 Jaw pain (principal); M25.561 Pain in right knee
CPT/HCPCS: 70110; 73562

== ENCOUNTER 2021-02-25 08:58 | Emergency (ER) | payer OTHER, SELFPAY ==
[2021-02-25 09:10] VITALS: BP 139/84; PULSE 68; RESP 16; TEMP 36.7; O2SAT 98; BMI 25.7
[2021-02-25 09:15] VITALS: BP 130/71; PULSE 65; RESP 18; TEMP 36.6; O2SAT 98
--- NOTE | 2021-02-25 09:22 | HMH.EDUTC ---
[facility] – [place] Disposition Clinical Impression: UTI (urinary tract infection) Qualifiers: Urinary tract infection type: acute cystitis Hematuria presence: without hematuria Qualified Code(s): N30.00 - Acute cystitis without hematuria Disposition: Home, Self-Care Condition on Discharge: Good Instructions: DI for Urinary Tract Infection (UTI) Additional Instructions: Take all meds as prescribed. Your urine has been sent for culture, which should be available Friday to ensure you are on the right antibiotics. Prescriptions: Ciprofloxacin HCl 500 mg PO BID 5 Days #10 tab Transmission Status: Pending to [id number] Phenazopyridine HCl [Pyridium 200mg Tablet] 200 pow PO TID #6 tab Transmission Status: Pending to [id number] Referrals: Lizette Leon PA [Primary Care Provider] - Time of Disposition: 09:25 Medical Decision Making - Roger Inquiry Pt receiving controlled substance: No Vital Signs: 02/25/21 09:10 Temperature 98.1 F Temperature Source Oral Pulse Rate [Right] 68 Respiratory Rate 16 Blood Pressure [Right Arm] 139/84 Blood Pressure Mean [Right Arm] 102 02 Sat by Pulse Oximetry 98 Oxygen Delivery Method Room Air - Lab Data Lab results reviewed: Yes: I reviewed the patient's lab results. Orders (Tests/Meds): ORDERS Category Date Time Status Urine Culture Stat Micro 02/25/21 09:18 Ordered [facility] [place] HPI - General Stated complaint: frequency,burning Time Seen by Provider: 02/25/21 09:22 Source of Information: Patient Limitations: No Limitations Description of Symptoms (Recalled from Triage Doc. by RN): Patient c/o burning with urination and the feeling of need to urinate all the time since yesterday. Pt reports hx of UTI's. HEENT Symptoms (Recalled from RN notes): No Resp Symptoms (Recalled from RN notes): No Skin Symptoms (Recalled from RN notes): No MS Symptoms (Recalled from RN notes): No Functional Status (Recalled from RN notes): na - History of Present Illness Provider Complaint: Dysuria, frequency, urgency X 2 days. No fever. No nausea or vomiting. Radiation: non-radiation Quality: burning Consistency: constant Relieving factors: none Exacerbating factors: none Associated symptoms: denies other symptoms Treatments prior to arrival: none - Related Data Previous Rx's Medication Instructions Recorded celecoxib 200 mg capsule 200 mg PO DAILY #30 cap 01/31/21 cariprazine 1.5 mg capsule 1.5 mg PO DAILY #30 cap 02/19/21 Ciprofloxacin HCl 500 mg PO BID 5 Days #10 tab 02/25/21 Phenazopyridine HCl [Pyridium 200 pow PO TID #6 tab 02/25/21 200mg Tablet] Allergies Allergy/AdvReac Type Severity Reaction Status Date / Time No Known Allergies Allergy Verified 01/31/21 13:46 - Worker's Comp Is this a Worker's Comp case?: No Is this an [facility] Worker's Comp?: No Is this a [facility] Worker's Comp?: No [facility] History - Hepatitis A Screen Drug use history?: No High risk sexual behaviors?: No History of sexually transmitted infection?: No Currently employed?: No Childcare worker?: No Do you have indoor plumbing?: Yes Do you have electricity?: Yes Attestation statement:: This patient has been screened for Hepatitis A risk factors. I have reviewed the patient's past medical history: Yes Medical History: Reports:: Anxiety, Migraine Denies:: Cancer, Diabetes Mellitus Type 1, Diabetes Mellitus Type 2, Internal Pacemaker, Lung Disease, MRSA, Seizures Laterality Cases: Right: Arthroscopy Knee Other Surgeries: Yes: Cholecystectomy, Hysterectomy-Total, Hysterectomy-Partial (06/2016), Plastic Surgery, Tubal Ligation. No: Pacemaker Amputation: No Fractures: No Comment: breast augmentation, - Social History Smoking Status: Never smoker Alcohol Intake: never Substance Use Type: denies use Occupational Status: employed Housing: house Household Members: children, spouse - Psychiatric History Pschychiatric History:: Reports:: Anxiety Famil
[2021-02-25 09:32] LABS: Apearance,Urine Cloudy (Clear); Bilirubin,Urine Negative (Negative); Blood, Urine 3+ (Negative); Color,Urine Dark Yellow (Yellow); Glucose,Urine (UA) Negative (Negative); Ketones,Urine Negative (Negative); Protein,Urine Negative (Negative); UTC Leukocyte Esterase,Urine 2+ (Negative); UTC Nitrate,Urine Positive (Negative); Urobilinogen,Urine 0.2 EU/dl (0.2)
== END 2021-02-25 09:35 | disposition home or self-care (01) ==
PROVIDERS: Emergency Provider Physician Assistant; PCP Physician Assistant
DX: N30.00 Acute cystitis without hematuria (principal); F41.9 Anxiety disorder, unspecified
CPT/HCPCS: 81003; 87086; 87088; 87186; 99202; G0463

== ENCOUNTER → 2021-02-28 06:48 | Outpatient (CLI) | payer OTHER, SELFPAY ==
--- NOTE | 2021-02-28 06:50 | CT_ITS ---
PROCEDURE: CT FACIAL BONES WO CON CLINICAL HISTORY: right jaw pain after fall Fell in August Rt TMJ pain COMPARISON: CT CT FACIAL BONES WO CON from 08/21/2020 TECHNIQUE: Axial images obtained with sagittal and coronal reformats. All CT scans at the facility use one or more dose reduction, viz: automated exposure control, ma/kV adjustment per patient size (including targeted exams where dose is matched to indication, i.e. head), or iterative reconstruction technique. FINDINGS: No sinus air-fluid level apparent. There has been interval extraction of a right maxillary molar 2. There is discontinuity of the inferior aspect of the right maxillary sinus at the extraction site with some mild cortical regularity the maxillary wall inferiorly consistent with a nondisplaced fracture. In the most inferior and lateral aspect of the maxillary sinus there is a small missing segment of bone with some associated soft tissue swelling at this area. There is mucosal thickening of the maxillary sinus at this region. There is some mild overlying soft tissue swelling. Posterior cortical bone at this area shows a somewhat granular appearance. No obvious abscess however abscess evaluation is limited without IV contrast. Minimal osteoarthritic changes are present at the TMJ on both sides slightly greater on the left. No mastoid effusion. There are few scattered small cervical lymph nodes on both sides. The the orbits have an unremarkable appearance. The incisors and bicuspids are absent in the maxilla on both sides. IMPRESSION: Interval extraction of a right maxillary molar with defect in the floor of the right maxillary sinus with a nondisplaced fracture involving the inferior lateral aspect of the right maxillary sinus at the region of the defect. There is missing bony segment the inferior and lateral aspect of the right maxillary sinus at the defect with some granular appearance of the bone at this region. Osteomyelitis is a consideration. There is some mild soft tissue swelling at this region as well. No obvious abscess however, abscess evaluation is limited without IV contrast. Minimal TMJ arthropathy Dictated by: Wang Farfan MD 03/01/2021 07:59 Wang Farfan MD in [place] 03/01/2021 07:59
[2021-02-28 19:13] LABS: Chloride 107 mmol/L (98-107); Potassium 4.2 mmoL/L (3.5-5.1); Sodium 140 mmol/L (136-145)
[2021-02-28 19:15] LABS: Blood Urea Nitrogen 6 mg/dl (7-17); Estimated Glomerular Filt Rate 111 ml/min (>60); GFR (African American) 135 ML/MIN (>60)
[2021-02-28 19:16] LABS: Alanine Aminotransferase 8 U/L (12-78); Albumin Level 4.3 g/dl (3.5-5.0); Albumin/Globulin Ratio 1.7 (1.1-1.8); Alkaline Phosphatase 55 U/L (38-126); Anion Gap 13.2 mEq/L (5-15); Aspartate Amino Transferase 23 U/L (14-36); Bilirubin,Total 0.6 mg/dl (0.2-1.3); Calcium 8.9 mg/dl (8.4-10.2); Carbon Dioxide 24 mmol/L (22.0-30.0); Chol/HDL Ratio 2.3 (1-3.5); Cholesterol 149 mg/dl (140-200); Globulin 2.5 g/dL (1.3-3.2); Glucose 80 mg/dl (74-100); HDL Cholesterol 65 mg/dl (40-60); Total Protein,Serum 6.8 g/dl (6.3-8.2); Triglycerides 69 mg/dl (30-150); VLDL Cholesterol 14 mg/dL (0-40)
[2021-02-28 19:27] LABS: Direct LDL Cholesterol 61.89 mg/dL (100-129)
[2021-02-28 19:29] LABS: Basophils # 0.1 K/mm3 (0-0.2); Basophils % 1.4 % (0.1-2.0); Eosinophils # 0.1 K/mm3 (0.0-0.4); Eosinophils % 1.5 % (0.1-12.0); Hematocrit 37.6 % (37.0-47.0); Hemoglobin 12.5 g/dL (12.2-16.2); Lymphocytes # 1.5 K/mm3 (0.7-4.5); Lymphocytes % 33.4 % (10-50); Mean Corpuscular HGB Conc 33.2 g/dL (31.8-35.4); Mean Corpuscular Hemoglobin 30.4 pg (27.0-31.2); Mean Corpuscular Volume 91.6 fl (81-99); Mean Platelet Volume 8.9 fl (7.4-10.4); Monocytes # 0.2 K/mm3 (0.1-1.0); Monocytes % 4.4 % (1.7-9.3); Neutrophils # 2.7 K/mm3 (1.8-7.8); Neutrophils % 59.2 % (37.0-80.0); Platelet Count 294 K/mm3 (142-424); Red Cell Distribution Width 13.2 % (11.5-17.5); White Blood Count 4.5 K/mm3 (4.8-10.8)
[2021-02-28 19:33] LABS: 25-OH Vitamin D, Total 58.2 ng/mL (30-100)
[2021-02-28 19:34] LABS: Free T4 (Free Thyroxine) 1.03 ng/dl (0.78-2.19)
[2021-02-28 19:47] LABS: Thyroid Stimulating Hormone 0.95 uIU/mL (0.465-4.68)
== END ==
PROVIDERS: PCP Physician Assistant; Visit Provider Physician Assistant
DX: R68.84 Jaw pain (principal); E55.9 Vitamin D deficiency, unspecified; R63.5 Abnormal weight gain
CPT/HCPCS: 70486; 80053; 80061; 82306; 84439; 84443; 85025

== ENCOUNTER → 2021-03-27 15:11 | Outpatient (CLI) | payer OTHER, SELFPAY ==
--- NOTE | 2021-03-27 15:22 | MR_ITS ---
PROCEDURE INFORMATION: Exam: MR Neck Without and With Contrast Exam date and time: 03/27/2021 3:22 PM Age: 40 years old Clinical indication: Face pain and maxilla pain; Patient HX: RT sided facial pain since fall in aug. Pain when opening mouth. ; Additional info: Non displaced fracture of right maxillary sinus TECHNIQUE: Imaging protocol: MR images of the neck without and with intravenous contrast. Contrast material: PROHANCE; Contrast volume: 14 ml; Contrast route: IV; COMPARISON: CT FACIAL BONES WO CON 02/28/2021 7:00 AM FINDINGS: Nasopharynx: Unremarkable. Oropharynx: Unremarkable. Hypopharynx: Unremarkable. Larynx: Unremarkable. Submandibular/Parotid glands: Unremarkable. Retropharyngeal space: Unremarkable. Vasculature: Unremarkable. Lymph nodes: No lymphadenopathy. Soft tissues: In the posterior aspect of the maxilla and in the region of the floor of the maxillary sinus there is some mild asymmetric enhancement inflammatory change. This corresponds to the region of the molar extraction noted on the comparison CT. There is also some mild asymmetric enhancement in the region of the right temporomandibular joint as compared to the left. No significant marrow edema identified in the condylar head. Bones/joints: Unremarkable. IMPRESSION: Asymmetric inflammatory change in the posterior right maxilla and floor of the maxillary sinus in an area of recent molar tooth extraction. This may represent evolving postoperative change but residual inflammation in the area is possible. Mild asymmetric enhancement in the region of the right temporomandibular joint without significant focal marrow edema in the underlying condylar head.
== END ==
PROVIDERS: PCP Physician Assistant; Visit Provider Physician Assistant
DX: S02.40CA Maxillary fracture, right side, initial encounter for closed fracture (principal)
CPT/HCPCS: 70543; A9576

== ENCOUNTER → 2021-08-20 12:40 | Outpatient (CLI) | payer OTHER, SELFPAY | PROVIDERS: Visit Provider Nurse Practitioner Family | DX: Z20.822 Contact with and (suspected) exposure to COVID-19 (principal) | CPT/HCPCS: C9803; U0003; U0005 ==

== ENCOUNTER → 2021-08-21 13:28 | Outpatient (CLI) | payer OTHER, SELFPAY | PROVIDERS: Visit Provider Nurse Practitioner | DX: Z20.822 Contact with and (suspected) exposure to COVID-19 (principal) | CPT/HCPCS: C9803; U0003; U0005 ==

== ENCOUNTER → 2022-01-08 09:39 | Outpatient (CLI) | payer OTHER, SELFPAY ==
[2022-01-08 17:42] LABS: Basophils # 0.1 K/mm3 (0-0.2); Basophils % 1.9 % (0.1-2.0); Eosinophils # 0.1 K/mm3 (0.0-0.4); Eosinophils % 1.1 % (0.1-12.0); Hemoglobin 13.4 g/dL (12.2-16.2); Lymphocytes # 1.8 K/mm3 (0.7-4.5); Lymphocytes % 27.6 % (10-50); Mean Corpuscular HGB Conc 33.4 g/dL (31.8-35.4); Mean Corpuscular Hemoglobin 31.6 pg (27.0-31.2); Mean Corpuscular Volume 94.6 fl (81-99); Monocytes # 0.4 K/mm3 (0.1-1.0); Monocytes % 5.4 % (1.7-9.3); Neutrophils # 4.1 K/mm3 (1.8-7.8); Platelet Count 284 K/mm3 (142-424); Red Blood Count 4.23 M/mm3 (4.20-5.40); Red Cell Distribution Width 13.4 % (11.5-17.5); White Blood Count 6.5 K/mm3 (4.8-10.8)
[2022-01-08 18:03] LABS: Chloride 105 mmol/L (98-107); Potassium 4.1 mmoL/L (3.5-5.1); Sodium 136 mmol/L (136-145)
[2022-01-08 18:06] LABS: Alanine Aminotransferase 10 U/L (12-78); Albumin Level 4.2 g/dl (3.5-5.0); Albumin/Globulin Ratio 1.8 (1.1-1.8); Alkaline Phosphatase 54 U/L (38-126); Anion Gap 10.1 mEq/L (5-15); Aspartate Amino Transferase 20 U/L (14-36); Bilirubin,Total 0.8 mg/dl (0.2-1.3); Blood Urea Nitrogen 6 mg/dl (7-17); Calcium 9.2 mg/dl (8.4-10.2); Carbon Dioxide 25 mmol/L (22.0-30.0); Chol/HDL Ratio 2.2 (1-3.5); Cholesterol 157 mg/dl (140-200); Estimated Glomerular Filt Rate 111 ml/min (>60); GFR (African American) 134 ML/MIN (>60); Globulin 2.4 g/dL (1.3-3.2); Glucose 95 mg/dl (74-100); HDL Cholesterol 71 mg/dl (40-60); Total Protein,Serum 6.6 g/dl (6.3-8.2); Triglycerides 64 mg/dl (30-150); VLDL Cholesterol 13 mg/dL (0-40)
[2022-01-08 18:17] LABS: Direct LDL Cholesterol 72.85 mg/dL (100-129)
[2022-01-08 18:24] LABS: 25-OH Vitamin D, Total 49.9 ng/mL (30-100)
[2022-01-08 18:37] LABS: Thyroid Stimulating Hormone 0.98 uIU/mL (0.465-4.68)
[2022-01-08 20:04] LABS: Vitamin B12 728 pg/mL (239-931)
[2022-01-10 08:22] LABS: FSH 3.2 mIU/mL (.); LH 2.1 mIU/mL (.); Progesterone 14.4 ng/mL (.); Testosterone,Total 6 ng/dL (8-60)
[2022-01-12 20:08] LABS: Estrogen 199 pg/mL (.)
== END ==
PROVIDERS: PCP Physician Assistant; Visit Provider Physician Assistant
DX: R53.83 Other fatigue (principal)
CPT/HCPCS: 80053; 80061; 82306; 82607; 82672; 83001; 83002; 84144; 84403; 84443; 85025

== ENCOUNTER → 2022-06-28 15:16 | Outpatient (CLI) | payer OTHER, SELFPAY ==
--- NOTE | 2022-06-28 15:35 | MM_ITS ---
PROCEDURE INFORMATION: Exam: MG Bilateral Screening 3D Mammography Exam date and time: 06/28/2022 3:28 PM Age: 41 years old Clinical indication: Screening examination. Strong family history of sister with premenopausal breast carcinoma. TECHNIQUE: Imaging protocol: Bilateral Screening tomosynthesis and 2D mammography including computer-aided detection (CAD) when performed. COMPARISON: 1. MG MM DIG SC MAMM IMPLANT BI CAD 08/17/2020 9:33 AM 2. MG DMSI DIG MAMM-SCREEN IMPLANT W/CAD 06/09/2017 1:56 PM FINDINGS: MAMMOGRAPHY: Breast composition: The breasts are heterogeneously dense, which may obscure small masses. Mass: No suspicious masses. Architectural distortion: No suspicious distortion. Calcifications: No suspicious calcifications. Asymmetric density: Questionable 0.5 cm asymmetry in the outer right breast, middle depth, only well seen on implant displaced CC frame 30. Finding may represent summation artifact. No suspicious mass in the left breast. Skin thickening: None. Axillary adenopathy: None. Implants: Bilateral subpectoral saline breast implants noted bilaterally IMPRESSION: 1. Recommend right breast spot compression CC/MLO views and ultrasound for further evaluation of a questionable asymmetry in the outer right breast, only well seen on implant displaced CC projection. Finding may represent summation artifact. 2. No definite mammographic evidence of malignancy in the left breast. 3. Given the reported risk factors for this patient, a breast cancer risk assessment may prove useful for further evaluation. ASSESSMENT: BI-RADS Category 0: Incomplete- Need Additional Imaging Evaluation and/or Prior Mammograms for Comparison
== END ==
PROVIDERS: PCP Physician Assistant; Visit Provider Physician Assistant
DX: Z12.31 Encounter for screening mammogram for malignant neoplasm of breast (principal)
CPT/HCPCS: 77063; 77067

== ENCOUNTER → 2022-07-23 13:57 | Outpatient (CLI) | payer OTHER, SELFPAY ==
--- NOTE | 2022-07-23 13:58 | MM_ITS ---
PROCEDURE INFORMATION: Exam: US Right Breast, Complete, Abscess Evaluation MG Right Diagnostic Breast Tomosynthesis Exam date and time: 07/23/2022 1:56 PM Age: 41 years old Clinical indication: Recall the basis of screening mammogram 06/28/2022 for further evaluation of questionable 0.5 cm asymmetry in the outer right breast. TECHNIQUE: Imaging protocol: Right Ultrasound of the breast with image documentation. All quadrants and retroareolar regions evaluated. Exam focused on the search and evaluation for abscess. Exam is an emergent request and a non-BIRADS study. Right Diagnostic tomosynthesis and 2D mammography including computer-aided detection (CAD) when performed. Unilateral or bilateral exam. COMPARISON: 1. MG MM DIG SC MAMM IMPLANT BI CAD 06/28/2022 3:28 PM 2. MG MM DIG SC MAMM IMPLANT BI CAD 08/17/2020 9:33 AM 3. MG DMSI DIG MAMM-SCREEN IMPLANT W/CAD 06/09/2017 1:56 PM 4. MG DMDXUR DIG MAMM-DX UNI-RT 06/12/2015 11:36 AM FINDINGS: MAMMOGRAPHY: Spot compressions demonstrate minimal residual patchy asymmetry in the upper breast, middle 3rd with no suspicious asymmetry, mass, or architectural distortion. ULTRASOUND: Right sonography, all 4 quadrants, retroareolar and axilla demonstrates no cystic, solid, or non masslike sonographic findings. Sonographically unremarkable right axillary lymph node. IMPRESSION: Minimal persistent patchy asymmetry in the upper right breast is likely benign, with no sonographic correlate, suggest six-month follow-up right diagnostic mammogram unless otherwise clinically indicated. ASSESSMENT: BI-RADS Category 3: Probably benign
== END ==
PROVIDERS: PCP Physician Assistant; Visit Provider Physician Assistant
DX: R92.8 Other abnormal and inconclusive findings on diagnostic imaging of breast (principal)
CPT/HCPCS: 76641; 77061; 77065; G0279

== ENCOUNTER 2022-09-23 18:36 | Emergency (ER) | payer OTHER, SELFPAY ==
[2022-09-23 19:00] VITALS: BP 111/72; PULSE 65; RESP 20; TEMP 37; O2SAT 98; BMI 26.2
--- NOTE | 2022-09-23 19:09 | EXP.UTC ---
Discharge Plan Disposition Patient Disposition: Home, Self-Care Condition: Good Prescriptions Prescriptions: New amoxicillin [amoxicillin] 875 mg tablet 875 mg PO Q12H Qty: 20 0RF benzonatate [benzonatate] 100 mg capsule 100 mg PO TIDP PRN (Reason: Cough) Qty: 30 0RF methylprednisolone 4 mg Tablets,Dose Pack 4 mg PO DIRECTED Qty: 21 0RF promethazine-DM 6.25-15 mg/5 mL Syrup 5 ml PO Q6H PRN (Reason: Cough) Qty: 240 0RF No Action duloxetine [Cymbalta] 60 mg capsule,delayed release(DR/EC) 60 mg PO DAILY Qty: 30 2RF estrogens-methyltestosterone 0.625-1.25 mg tablet 1 tab PO DAILY Qty: 21 2RF Rx Instructions: Take one daily X 3 weeks, off X 1 week for 3 months Latuda 20 mg tablet 20 mg PO DAILY Qty: 30 2RF Rx Instructions: must administer with food (at least 350 calories) Referrals Follow up/Referrals: Lizette Leon PA [Primary Care Provider] - See instructions Activity Restrictions/Add. Instructions Additional Instructions/Restrictions: Drink plenty of fluids. Take tylenol or ibuprofen for pain or fever. Take the medications as directed. Follow up with your regular doctor. GO TO THE ER FOR ANY WORSENING SYMPTOMS Don't start the oral steroids until tomorrow, since you had the shot here today. The cough medication (promethazine dm) will make you drowsy, so don't drive or operate heavy machinery after taking it. Clinical Impressions Clinical Impression: Sinusitis, Bronchitis Stand Alone Forms Stand Alone Forms: Work/School Release Instructions Patient Instructions: DI for Sinusitis, DI for Acute Bronchitis Discharge ED Provider: Aniket Tejada [facility] General Stated complaint: congestion cough body ache Time Seen by Provider: 09/23/22 19:09 History of Present Illness Provider Complaint: She states that for the past 2 days she has had sore throat, chills, body aches and low grade fever. Related Data Previous Rx's Medication Instructions Recorded duloxetine 60 mg capsule,delayed 60 mg PO DAILY #30 caps 01/08/22 release (Cymbalta) esterified 1 tab PO DAILY #21 tabs 01/15/22 estrogens-methyltestosterone 0.625 mg-1.25 mg tablet lurasidone 20 mg tablet (Latuda) 20 mg PO DAILY #30 tabs 02/07/22 amoxicillin 875 mg tablet 875 mg PO Q12H #20 tabs 09/23/22 benzonatate 100 mg capsule 100 mg PO TIDP PRN Cough #30 caps 09/23/22 methylprednisolone 4 mg tablets in 4 mg PO DIRECTED #21 tabs 09/23/22 a dose pack promethazine-DM 6.25 mg-15 mg/5 mL 5 ml PO Q6H PRN Cough #240 mL 09/23/22 oral syrup Allergies Allergy/AdvReac Type Severity Reaction Status Date / Time No Known Allergies Allergy Verified 01/08/22 14:13 [facility] Disclaimer: The information contained in this section may have been updated after the patient was seen, as this information can be updated by other users. Medical History Anxiety Depression Dysphagia Family history of rheumatoid arthritis Greater trochanteric bursitis Migraines Polyarthralgia Right hip pain Right temporomandibular joint disorder, unspecified Vitamin D deficiency (~04/02/18) Social History Smoking Status: Never smoker alcohol intake: never substance use type: denies use current occupational status: employed Travel in the last 8 weeks: None household members: spouse and children housing: house caffeine: Yes ROS Obtained: Yes All systems reviewed & no additional complaints except as documented Constitutional Constitutional: Reports chills and Reports fever(s) Eyes Eyes: Denies eye discharge ENT Ears, Nose, Mouth, and Throat: Reports as per HPI Cardiovascular Cardiovascular: Denies chest pain Respiratory Respiratory: Denies chest congestion and Reports cough Gastrointestinal Gastrointestingal: Reports nausea; Denies abdominal pain, constipation
[2022-09-23 19:46] VITALS: BP 111/72; PULSE 65; RESP 20; TEMP 37; O2SAT 98
== END 2022-09-23 20:11 | disposition home or self-care (01) ==
PROVIDERS: Emergency Provider Nurse Practitioner Family; PCP Physician Assistant
DX: J32.9 Chronic sinusitis, unspecified (principal); J40 Bronchitis, not specified as acute or chronic
CPT/HCPCS: 99212; 99214; G0463; J0696

== ENCOUNTER 2022-11-01 08:04 | Emergency (ER) | payer OTHER, SELFPAY ==
--- NOTE | 2022-11-01 08:11 | HMH.EDGENADL ---
Discharge Plan Disposition Patient Disposition: Home, Self-Care Prescriptions Prescriptions: New ibuprofen 800 mg tablet 800 mg PO TID PRN (Reason: pain) 7 Days Qty: 20 0RF cyclobenzaprine 5 mg tablet 5 mg PO TID PRN (Reason: muscle spasm) 5 Days Qty: 15 0RF No Action clonazepam [Klonopin] 0.5 mg tablet 0.25 mg PO BID Qty: 30 0RF Referrals Follow up/Referrals: Lizette Leon PA [Primary Care Provider] - See instructions Activity Restrictions/Add. Instructions Additional Instructions/Restrictions: The Dermabond under neck laceration should come off within a week. There is no evidence of any cervical spine injury or neurovascular injury of your neck. Please return with any strokelike symptoms or weakness or upper extremity neurologic symptoms. Regarding your trachea and your esophagus please return with any difficulty breathing specifically the stridor as discussed or difficulty with swallowing. Please follow with your primary care doctor and return to the emergency part with any worsening symptoms. Clinical Impressions Clinical Impression: Concussion, Blunt trauma of neck, Laceration of neck, Cervical muscle strain, Strain of right trapezius muscle Discharge ED Provider: Bryant Rios General Adult HPI General Chief complaint: Fall Stated complaint: [id number] pain in neck, head, nausea Time Seen by Provider: 11/01/22 08:11 History of Present Illness HPI narrative: Patient is a 41-year-old female presenting with multiple complaints. States that she was at baseball game last night went to [employer] and had a [place] ice tea that she drank slowly over 3 hours and went to sleep. She states that she woke up around 2 AM and is unsure exactly what happened. She was found on the ground by her and had a laceration to the right lateral aspect of her neck and some neck pain and head pain. She denies any persistent vomiting or neurologic symptoms at this point. She denies having more than 1 drink or taking any other drugs. She denies any chest abdomen or pelvis pain. She denies any long bone pain. Related Data Previous Rx's Medication Instructions Recorded clonazepam 0.5 mg tablet (Klonopin) 0.25 mg PO BID #30 tabs 10/01/22 cyclobenzaprine 5 mg tablet 5 mg PO TID PRN muscle spasm 5 03/31/23 days #15 tabs ibuprofen 800 mg tablet 800 mg PO TID PRN pain 7 days #20 11/01/22 tabs Allergies Allergy/AdvReac Type Severity Reaction Status Date / Time No Known Allergies Allergy Verified 10/01/22 15:44 [facility] Disclaimer: The information contained in this section may have been updated after the patient was seen, as this information can be updated by other users. Medical History Anxiety Depression Dysphagia Family history of rheumatoid arthritis Greater trochanteric bursitis Migraines Polyarthralgia Right hip pain Right temporomandibular joint disorder, unspecified Vitamin D deficiency (~04/02/18) Social History Smoking Status: Smoker, status unknown alcohol intake: never substance use type: denies use current occupational status: employed Travel in the last 8 weeks: None household members: spouse and children housing: house caffeine: Yes ROS Obtained: Yes All systems reviewed & no additional complaints except as documented Physical Exam General General appearance: alert and in no apparent distress Head Head exam: atraumatic, normal inspection and other (No depressed skull fracture lora sign or raccoon eyes) Neck Neck exam: Present other (There is no midline cervical spine tenderness, there is a 0.5 cm laceration over the lateral aspect of the anterior neck that is only few millimeters deep the base of the wound can be examined in a bloodless field trachea is midline no stridor posterior pharynx appears normal) Chest Chest inspection: Pr
[2022-11-01 08:13] VITALS: BP 130/83; PULSE 70; RESP 16; TEMP 36.5; O2SAT 100; BMI 25.7
--- NOTE | 2022-11-01 08:13 | PC.NURSE ---
DR VIVEROS AT BEDSIDE
--- NOTE | 2022-11-01 08:20 | PC.NURSE ---
Small laceration noted to right neck. 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 No obvious soft tissue swelling. Small scrape noted to chin. No intervention needed.
--- NOTE | 2022-11-01 08:47 | ECG_ITS ---
APPROVED REPORT Exam: Resting ECG HR:52 bpm ECG Measurements Heart Rate 52 AXES MD 177 P 12 QRSd 85 QRS 63 QT 446 T 57 QTc 426 Conclusion SINUS BRADYCARDIA BORDERLINE ECG UNCONFIRMED REPORT Electronically signed by : Suman Ferrer MD 11/01/2022 22:35:39
[2022-11-01 08:48] LABS: Basophils # 0.1 K/mm3 (0-0.2); Basophils % 0.5 % (0.1-2.0); Chloride 100 mmol/L (98-107); Eosinophils # 0.1 K/mm3 (0.0-0.4); Eosinophils % 0.6 % (0.1-12.0); Hematocrit 39.8 % (37.0-47.0); Hemoglobin 12.7 g/dL (12.2-16.2); Lymphocytes # 1.2 K/mm3 (0.7-4.5); Lymphocytes % 13.7 % (10-50); Mean Corpuscular Hemoglobin 30.4 pg (27.0-31.2); Mean Corpuscular Volume 95.2 fl (81-99); Mean Platelet Volume 8.5 fl (7.4-10.4); Monocytes # 0.4 K/mm3 (0.1-1.0); Monocytes % 4.3 % (1.7-9.3); Neutrophils # 6.8 K/mm3 (1.8-7.8); Neutrophils % 80.9 % (37.0-80.0); Platelet Count 331 K/mm3 (142-424); Potassium 3.9 mmoL/L (3.5-5.1); Red Blood Count 4.18 M/mm3 (4.20-5.40); Sodium 137 mmol/L (136-145); White Blood Count 8.4 K/mm3 (4.8-10.8)
[2022-11-01 08:51] LABS: Alanine Aminotransferase 16 U/L (12-78); Albumin Level 4.5 g/dl (3.5-5.0); Alkaline Phosphatase 48 U/L (38-126); Anion Gap 12.9 mEq/L (5-15); Aspartate Amino Transferase 22 U/L (14-36); Bilirubin,Total 0.4 mg/dl (0.2-1.3); Blood Urea Nitrogen 7 mg/dl (7-17); Carbon Dioxide 28 mmol/L (22.0-30.0); Creatinine Clearance Estimated 129 mL/min (50-200); Estimated Glomerular Filt Rate 111 ml/min (>60); GFR (African American) 134 ML/MIN (>60); Globulin 2.3 g/dL (1.3-3.2); Total Protein,Serum 6.8 g/dl (6.3-8.2)
[2022-11-01 08:52] LABS: Calcium 8.9 mg/dl (8.4-10.2); Glucose 123 mg/dl (74-100)
[2022-11-01 09:00] VITALS: BP 104/69; PULSE 47; O2SAT 100
[2022-11-01 09:30] VITALS: BP 109/77; PULSE 47; O2SAT 100
[2022-11-01 09:32] VITALS: BP 102/77; PULSE 47; RESP 16; O2SAT 100
[2022-11-01 09:43] VITALS: BP 102/77; PULSE 52; RESP 16; TEMP 36.5; O2SAT 100
== END 2022-11-01 09:45 | disposition home or self-care (01) ==
PROVIDERS: Emergency Provider Student in an Organized Health Care Education/Training Program; PCP Physician Assistant
DX: S16.1XXA Strain of muscle, fascia and tendon at neck level, initial encounter (principal); S11.91XA Laceration without foreign body of unspecified part of neck, initial encounter; S06.0X9A Concussion with loss of consciousness of unspecified duration, initial encounter; W19.XXXA Unspecified fall, initial encounter
CPT/HCPCS: 12001; 80053; 85025; 93005; 96360; 96374; 96375; 99284; J2405

== ENCOUNTER → 2023-01-22 14:21 | Outpatient (CLI) | payer OTHER, SELFPAY ==
--- NOTE | 2023-01-22 14:21 | MM_ITS ---
PROCEDURE INFORMATION: Exam: MG Right Diagnostic Breast Tomosynthesis Exam date and time: 01/22/2023 2:20 PM Age: 42 years old Clinical indication: Short-term radiographic followup; Right breast; asymmetry TECHNIQUE: Imaging protocol: Right Diagnostic tomosynthesis and 2D mammography including computer-aided detection (CAD) when performed. Unilateral or bilateral exam. COMPARISON: 1. MG MM DX IMPLANT RT W/ISABELL 07/23/2022 1:56 PM 2. MG MM DIG SC MAMM IMPLANT BI CAD 06/28/2022 3:28 PM FINDINGS: MAMMOGRAPHY: The breast tissue is composed of scattered areas of fibroglandular density. There is no stellate mass, architectural distortion or suspicious microcalcifications to suggest malignancy. Stable benign-appearing parenchymal pattern. No suspicious asymmetries are identified on the current examination. No skin thickening or axillary adenopathy. IMPRESSION: No mammographic evidence of malignancy. Annual bilateral mammographic screening is recommended in July 2023 unless otherwise clinically indicated. ASSESSMENT: BI-RADS Category 1: Negative
== END ==
PROVIDERS: PCP Physician Assistant; Visit Provider Physician Assistant
DX: R92.8 Other abnormal and inconclusive findings on diagnostic imaging of breast (principal)
CPT/HCPCS: 77061; 77065; G0279

== ENCOUNTER → 2023-03-04 10:32 | Outpatient (CLI) | payer OTHER, SELFPAY ==
[2023-03-04 10:44] LABS: Basophils % 0.6 % (0.1-2.0); Eosinophils # 0.1 K/mm3 (0.0-0.4); Eosinophils % 1.3 % (0.1-12.0); Hematocrit 43.7 % (37.0-47.0); Hemoglobin 14.1 g/dL (12.2-16.2); Lymphocytes # 1.1 K/mm3 (0.7-4.5); Lymphocytes % 15.3 % (10-50); Mean Corpuscular HGB Conc 32.4 g/dL (31.8-35.4); Mean Corpuscular Hemoglobin 29.9 pg (27.0-31.2); Mean Corpuscular Volume 92.5 fl (81-99); Monocytes # 0.3 K/mm3 (0.1-1.0); Monocytes % 3.8 % (1.7-9.3); Neutrophils # 5.5 K/mm3 (1.8-7.8); Platelet Count 306 K/mm3 (142-424); Red Blood Count 4.72 M/mm3 (4.20-5.40); Red Cell Distribution Width 12.5 % (11.5-17.5)
[2023-03-04 11:33] LABS: Anion Gap 14.6 mEq/L (5-15); Blood Urea Nitrogen 13 mg/dl (7-17); Calcium 9.8 mg/dl (8.4-10.2); Carbon Dioxide 25 mmol/L (22.0-30.0); Chloride 105 mmol/L (98-107); Estimated Glomerular Filt Rate 69 ml/min (>60); GFR (African American) 83 ML/MIN (>60); Glucose 97 mg/dl (74-100); Potassium 4.6 mmoL/L (3.5-5.1); Sodium 140 mmol/L (136-145)
== END ==
PROVIDERS: PCP Physician Assistant; Visit Provider Surgery
DX: Z01.812 Encounter for preprocedural laboratory examination (principal); D17.9 Benign lipomatous neoplasm, unspecified
CPT/HCPCS: 36415; 80048; 85025

== ENCOUNTER 2023-03-10 10:44 | Day surgery (SDC) | payer OTHER, SELFPAY ==
[2023-03-10] VITALS (10 sets, daily range): BP systolic 115–122; BP diastolic 51–88; PULSE 40–57; RESP 8–18; TEMP 36.3–36.9; O2SAT 99–100; BMI 23.9
--- NOTE | 2023-03-10 13:07 | P.PNANES_ITS ---
[facility] Disclaimer: The information contained in this section may have been updated after the patient was seen, as this information can be updated by other users. Medical History Anxiety Depression Dysphagia Family history of rheumatoid arthritis Greater trochanteric bursitis Migraines Polyarthralgia Right hip pain Right temporomandibular joint disorder, unspecified Vitamin D deficiency (~04/02/18) Surgical History (Updated 03/10/23 @ 11:00 by Nalini Lord RN) History of cholecystectomy History of partial hysterectomy Hx of breast augmentation Family History (Updated 03/10/23 @ 11:00 by Nalini Lord RN) Other Family history of arthritis Family history of cancer Family history of diabetes mellitus type II Social History (Updated 03/10/23 @ 11:00 by Nalini Lord RN) Smoking Status: Never smoker alcohol intake: never substance use type: denies use current occupational status: employed Travel in the last 8 weeks: None household members: spouse and children housing: house lives independently: No marital status: education level: college service: No penitentiary: No caffeine: Yes do you feel safe at home: Yes victim of physical abuse: No victim of emotional abuse: No victim of sexual abuse: No would you like helpful sources: No [facility] Anesthesia Checklist Patient Identification Patient Identification: Arm Band Structural Data Admitted From: Home Planned Operative Procedure/s: Excision of Mid-Back Lipoma Consent for Planned Operative Procedure(s) Verified: Yes Verified Documents: Surgical Consent and History and Physical NPO Status Verified Time NPO: 00:00 Additional verifications Anesthesia Reactions: No Hx Blood Transfusions: No Blood Transfusion Reaction: No Airway Assessment Mallampati Score:: Class II C-Spine Mobility Assessed: Yes TMJ Mobility Assessed: Yes Dentition: Good Dentition (upper partial removed) Neurological Assessment Level of Consciousness: Awake and Alert Anesthesia Plan Anesthesia Risk discussed: Yes Anesthesia Plan: Verified ASA Class: I Anesthesia Type: General
--- NOTE | 2023-03-10 13:53 | P.OP_ITS ---
Date of procedure: 03/10/23 Pre-op Diagnosis:: Subcutaneous lipoma on the back Post-op Diagnosis:: Same Procedure performed:: Excision of subcutaneous lipoma from the back (excisional length 3.5 cm) with intermediate complexity closure Surgeon:: Franklyn Man MD Anesthesia: MAC, local and LMA Estimated blood loss (mL): 5 Operative findings:: Consistent with subcutaneous lipoma deep to the superficial fascia Operative note:: Consent was obtained and patient was taken to the operating room. She was given preoperative intravenous antibiotics. In the operating room she was placed in a supine position. General anesthesia was induced via LMA. She was positioned in right lateral position. The area was marked with a skin marker prior to leaving the preoperative area. The area was prepped and draped in the standard surgical fashion. With deep palpation the area was able to be palpated in the operating room. Skin was marked with skin marker for planned incision over the palpable area. Approximately 3.5 cm incision was made. Dissection was carried down through dermis and superficial subcutaneous tissues. Superficial fascia (subcutaneous) was incised. Deep to this there was encountered nodule of well- circumscribed somewhat lobulated adipose tissue consistent with lipoma. Using Metzenbaum dissection and electrocautery it was dissected free from surrounding tissues. It was sent off the table specimen. Hemostasis was achieved with electrocautery. Local anesthetic was infiltrated. Fascia was closed with interrupted 3-0 Vicryl. Subdermal tissues were reapproximated with interrupted 3-0 Vicryl. Skin was closed with 4-0 Monocryl in a running subcuticular fashion. Dermabond and clean dry sterile dressings were applied. Condition: stable Disposition: PACU Complications:: None immediately apparent.
--- NOTE | 2023-03-10 14:10 | EXP.ANES.I ---
[facility] Anesthesia Record Part I Anesthesia Record I Intake, IV Amount: 300 Hydration: Adequate Estimated blood loss (mL): 2 Urine output (mL): 0 Blood Products used (#): none Blood Pressure: 118/75 SaO2: 100 Pulse Rate: 45 Airway Patency: Patent Respiratory Rate: 8 Temperature: 97.4 F Pain scale (0-10): 0 Nausea: No Vomiting: No Patient is:: Drowsy and Stable Stable to PACU at:: 14:00
--- NOTE | 2023-03-10 17:38 | EXP.ANES.II ---
[facility] Anesthesia Record Part II Anesthesia Record Part II Discharge Time: 14:30 Destination: Surgical Day Care (OP Surgery) PACU nurse assessment reviewed?: Yes Patient Condition:: Good Anesthesia Complications:: None Swallowing reflex intact?: Yes Airway Patency: Patent Cyanosis?: No Blood Pressure: 116/56 SaO2: 100 Respiratory Rate: 16 Pulse Rate: 46 Temperature: 98.5 F Mental Status: Alert & Oriented Pain level:: 0 Nausea and/or vomitting:: None Intake, IV Amount: 0 Hydration: Adequate
== END 2023-03-10 15:01 | disposition home or self-care (01) ==
PROVIDERS: PCP Physician Assistant; Visit Provider Surgery
PROC: (CPT 11404; principal; 2023-03-10 12:15)
DX: D17.1 Benign lipomatous neoplasm of skin and subcutaneous tissue of trunk (principal)
CPT/HCPCS: 11404; 12032; 96374; J2405

== ENCOUNTER 2023-05-16 06:01 | Day surgery (SDC) | payer OTHER, SELFPAY ==
[2023-05-14 14:00] VITALS: BMI 22.3
[2023-05-16] VITALS (8 sets, daily range): BP systolic 105–126; BP diastolic 67–73; PULSE 57–67; RESP 14–18; TEMP 36.2–36.9; O2SAT 94–100
--- NOTE | 2023-05-16 06:58 | P.PNANES_ITS ---
[facility] Disclaimer: The information contained in this section may have been updated after the patient was seen, as this information can be updated by other users. Medical History Anxiety Depression Dysphagia Family history of rheumatoid arthritis Greater trochanteric bursitis Hemorrhoid History of COVID-19 Migraines Polyarthralgia Right hip pain Right temporomandibular joint disorder, unspecified Vitamin D deficiency (~04/02/18) Surgical History History of cholecystectomy History of partial hysterectomy Hx of breast augmentation Family History Other Family history of arthritis Family history of cancer Family history of diabetes mellitus type II Social History Smoking Status: Never smoker alcohol intake: never substance use type: denies use current occupational status: employed Travel in the last 8 weeks: None household members: children housing: house lives independently: No marital status: education level: college service: No penitentiary: No caffeine: Yes do you feel safe at home: Yes victim of physical abuse: No victim of emotional abuse: No victim of sexual abuse: No would you like helpful sources: No [facility] Anesthesia Checklist Patient Identification Patient Identification: Arm Band, Family and Verbal (Name & ) Structural Data Admitted From: Home Planned Operative Procedure/s: Colonoscopy Consent for Planned Operative Procedure(s) Verified: Yes Verified Documents: Surgical Consent and History and Physical Chart Verification Results Verified: CBC and BMP Additional verifications Patient : No (s/p Hysterectomy) Anesthesia Reactions: No Hx Blood Transfusions: No Blood Transfusion Reaction: No Cephalosporin Allergy: No Cardiovascular Assessment Heart Sounds: S1 & S2 Pulse Rhythm: Irregular Peripheral Edema: No Airway Assessment Mallampati Score:: Class II C-Spine Mobility Assessed: Yes TMJ Mobility Assessed: Yes Dentition: Partials (Upper. Nothing loose per pt.) Neurological Assessment Level of Consciousness: Awake, Alert and Appropriate Hx Seizures: No Numbness or tingling in extremities: No Anesthesia Plan Anesthesia Risk discussed: Yes Anesthesia Plan: Verified ASA Class: I Anesthesia Type: MAC
--- NOTE | 2023-05-16 07:18 | P.PCN_ITS ---
Procedure: Date: 05/16/23 Patient Date of :: 1980 Procedure Performed:: Total colonoscopy to terminal ileum Indications:: Patient is a 42-year-old female from [place] referred by Lizette Leon for colonoscopy. I had previously seen the patient and performed EGD on her in the past. I also had relatively recently seen her and excised a lipoma from her back. She was scheduled for screening colonoscopy. She states that she has had constipation her entire adult life . She has tried multiple [id number] and prescription treatment without success. There is a family history of Crohn's disease. She denies any rectal bleeding. No family history of colon cancer. Patient asks about hemorrhoids which sound like external hemorrhoids or skin tags that she states that she does not want there. Performing Provider:: Franklny Man MD Referring Provider:: Lizette Leon Sedation:: MAC sedation Procedure:: Patient history was obtained and appropriate physical examination was performed. Patient's medications and allergies were reviewed. Informed consent was obtained after explaining the benefits, alternatives, and risks of the procedure including, but not limited to, bleeding, perforation, missed lesions, and adverse reaction to anesthesia medications. Patient was transported to endoscopy procedure room. Patient was connected to monitoring devices. Throughout the procedure the patient's blood pressure, pulse, and oxygen saturations were monitored continuously. Patient identification and planned procedure were verified by the staff. Patient was positioned in lateral decubitus position. Digital anorectal exam was performed. Variable stiffness Olympus colonoscope was inserted and advanced under direct visualization to the cecum. Adequacy of the colonic preparation was noted. The colonoscope was advanced a short distance into the terminal ileum. The colonoscope was then slowly withdrawn while carefully examining the color, texture, anatomy, and integrity of the mucosoa circumferentially. Within the rectum retroflexion was performed. Colonoscope was then withdrawn. . She had minimal external anal skin tags/hemorrhoids. Colonic preparation was good although there was some liquid throughout the colon which was suctioned free. Visualization was good. There were no obstructing masses or polyps. Colonoscopy from terminal ileum distally to the rectum was normal. . Findings:: Normal colonoscopy Recommendations:: No mechanical etiology for her constipation. Likely functional. Recommend repeat colonoscopy at screening age 46. I would advise against hemorrhoidectomy given this appears to be more nonpathologic minimal external hemorrhoids and skin tags. Complications:: None immediately apparent Estimated blood obtained (mL): 0 Colonoscopy Component Colonoscopy Component Was a colonoscopy performed during today's procedure?: Yes Recommended follow up colonoscopy of at least 10 years?: No If no, follow up colonoscopy recommended in ___ years?: 4 Reason for not recommending >/= 10 yr follow-up interval?: For screening
--- NOTE | 2023-05-16 13:41 | EXP.ANES.I ---
[facility] Anesthesia Record Part I Anesthesia Record I Intake, IV Amount: 300 Hydration: Adequate Estimated blood loss (mL): 0 Urine output (mL): 0 Blood Products used (#): none Blood Pressure: 109/67 SaO2: 94 Pulse Rate: 57 Airway Patency: Patent Respiratory Rate: 14 Temperature: 97.1 F Patient is:: Awake and Stable Stable to PACU at:: 08:02
== END 2023-05-16 08:27 | disposition home or self-care (01) ==
PROVIDERS: PCP Physician Assistant; Visit Provider Surgery
PROC: 0DJD8ZZ Inspection of Lower Intestinal Tract, Via Natural or Artificial Opening Endoscopic (ICD-10-PCS; CPT 45378; principal; 2023-05-16 07:30)
DX: Z12.11 Encounter for screening for malignant neoplasm of colon (principal); K59.00 Constipation, unspecified
CPT/HCPCS: 45378

== ENCOUNTER 2023-08-18 14:35 | Outpatient (CLI) | payer OTHER, SELFPAY ==
--- NOTE | 2023-08-18 14:36 | MM_ITS ---
PROCEDURE INFORMATION: Exam: MG Bilateral Diagnostic Breast Tomosynthesis Exam date and time: 08/18/2023 2:37 PM Age: 42 years old Clinical indication: Concern for right lump. Has been followed for questionable asymmetry in the right upper outer breast middle depth 06/28/2022, and screening. Her sister had breast cancer at age 38. TECHNIQUE: Imaging protocol: Bilateral Diagnostic tomosynthesis and 2D mammography including computer-aided detection (CAD) when performed. Unilateral or bilateral exam. Triangular skin marker and spot compression at area of palpable concern right. COMPARISON: 1. MG MM DIG MAMM DX UNILAT RT CAD 01/22/2023 2:20 PM 2. MG MM DX IMPLANT RT W/ISABELL 07/23/2022 1:56 PM 3. MG MM DIG SC MAMM IMPLANT BI CAD 06/28/2022 3:28 PM 4. MG MM DIG SC MAMM IMPLANT BI CAD 08/17/2020 9:33 AM FINDINGS: MAMMOGRAPHY: Breast composition: The breasts are heterogeneously dense, which may obscure small masses. Mass: None. Architectural distortion: None. Calcifications: No suspicious calcifications. Asymmetric density: Stable patchy glandular tissue in the right upper outer quadrant at the area of palpable concern. No developing asymmetry. Skin thickening: None. Axillary adenopathy: None. Other: Subpectoral saline implants. IMPRESSION: Patient will be recalled for right sonography for further evaluation palpable concern. No mammographic evidence of malignancy. Further evaluation of a palpable abnormality should be based on clinical grounds regardless of radiographic findings or lack thereof. Given the reported risk factors coupled with the patient's breast density, a breast cancer risk assessment may prove useful for further evaluation. ASSESSMENT: BI-RADS Category 0: Incomplete- Need Additional Imaging Evaluation and/or Prior Mammograms for Comparison
== END 2023-08-18 23:59 ==
LOC: RAD 14:36
PROVIDERS: PCP Physician Assistant; Visit Provider Physician Assistant
DX: R92.8 Other abnormal and inconclusive findings on diagnostic imaging of breast (principal)
CPT/HCPCS: 77062; 77066; G0279

== ENCOUNTER 2023-09-03 15:45 | Outpatient (CLI) | payer OTHER, SELFPAY ==
--- NOTE | 2023-09-03 15:45 | US_ITS ---
PROCEDURE INFORMATION: Exam: US Right Breast, Complete Exam date and time: 09/03/2023 3:57 PM Age: 42 years old Clinical indication: Palpable abnormality in the right breast TECHNIQUE: Imaging protocol: Complete ultrasound of all four quadrants of the right breast and the retroareolar regions, including ultrasound of the axilla when performed. COMPARISON: US BREAST RT COMPLETE 07/23/2022 3:35 PM FINDINGS: Breast: Sonographic images of the right breast including the retroareolar region, all 4 quadrants and the axilla demonstrates a partially circumscribed mixed solid and cystic mass in the region of palpable concern in the right 11 o'clock axis 6 cm from the nipple measuring 0.4 x 0.3 x 0.3 cm in dimension. The finding is radiographically indeterminate. No other solid or cystic masses are noted in the right breast. No architectural distortion or acoustical shadowing. No skin thickening or axillary adenopathy. The implant is intact IMPRESSION: Palpable abnormality in the right breast corresponds to an indeterminate partially solid partially cystic mass. Ultrasound-guided core biopsy is recommended for further evaluation ASSESSMENT: BI-RADS Category 4: Suspicious
== END 2023-09-03 23:59 ==
LOC: RAD 15:45
PROVIDERS: PCP Physician Assistant; Visit Provider Physician Assistant
DX: R92.8 Other abnormal and inconclusive findings on diagnostic imaging of breast (principal)
CPT/HCPCS: 76641

== ENCOUNTER 2023-09-11 08:03 | Outpatient (CLI) | payer OTHER, SELFPAY ==
--- NOTE | 2023-09-11 08:03 | US_ITS ---
FINAL REPORT CLINICAL HISTORY: FNA PALP AREA 1000 -- DR. ODILIA ZARATE -- RT SIDE -- 6 CM FN FINDINGS: ULTRASOUND GUIDED RIGHT BREAST LESION ASPIRATION HISTORY: Right breast nodule, TECHNIQUE: Limited sonographic evaluation of right breast was performed to localize lesion of interest. Lesion was again noted at 10:00. The right breast was prepped in a routine sterile fashion and locally anesthetized with 1% lidocaine. Aspiration was performed with 25-gauge needle under direct sonographic visualization. Initial intent was to perform FNA for cytologic evaluation. However a tiny amount of fluid was noted to be aspirated from the nodule with the lesion completely decompressed compatible with a benign 3-4 mm cyst. No significant residual solid component was present. Procedure was well tolerated. IMPRESSION: 1. Technically successful aspiration of right breast 3-4 mm nodule demonstrated to be a benign cyst 2. Recommend sonographic follow-up of this site in 6 months as part of normal benign lesion surveillance Authenticated and ERN
== END 2023-09-11 23:59 ==
LOC: RAD 08:03
PROVIDERS: PCP Physician Assistant; Visit Provider Physician Assistant
DX: N63.11 Unspecified lump in the right breast, upper outer quadrant (principal)
CPT/HCPCS: 10005

== ENCOUNTER 2024-05-19 15:18 | Outpatient (CLI) | payer OTHER, SELFPAY ==
--- NOTE | 2024-05-19 | MM_ITS ---
PROCEDURE INFORMATION: Exam: US Left Breast, Complete US Right Breast, Complete MG Bilateral Diagnostic Breast Tomosynthesis Exam date and time: 05/19/2024 3:54 PM Age: 43 years old Clinical indication: Right breast palpable lump; family history of breast cancer. TECHNIQUE: Imaging protocol: Complete ultrasound of all four quadrants of the left breast and the retroareolar regions, including ultrasound of the axilla when performed. Complete ultrasound of all four quadrants of the right breast and the retroareolar regions, including ultrasound of the axilla when performed. Bilateral Diagnostic tomosynthesis and 2D mammography including computer-aided detection (CAD) when performed. Unilateral or bilateral exam. COMPARISON: US FNA BREAST 09/11/2023 8:56 AM FINDINGS: MAMMOGRAPHY: Breast composition: The breasts are heterogeneously dense, which may obscure small masses. Breast mammogram findings: A skin marker is placed over the palpable area of concern in the right breast. There is an underlying questionable 0.7 cm mass. There is no associated calcifications or distortion. There is no mammographic evidence of malignancy in the left breast. There are bilateral post pectoral saline implants. ULTRASOUND: Breast ultrasound findings: Complete scanning of the right breast is performed. At the palpable area of concern, right breast 11 o'clock axis, there is a questionable indistinct hypoechoic mass measuring 0.2 x 0.1 x 0.2 cm. This is considered suspicious. Ultrasound-guided needle biopsy is recommended. There is no axillary adenopathy. No additional suspicious findings on the right. Complete scanning of the left breast is performed. In the 11 o'clock axis of the left breast, 4 cm from the nipple, there is a slightly irregular hypoechoic mass measuring 0.5 x 0.2 x 0.6 cm. This is also considered indeterminate. Ultrasound-guided needle biopsy of this mass is also recommended. No left axillary adenopathy. IMPRESSION: Ultrasound demonstrates masses in both breasts, in the right breast at the 11 o'clock axis at the palpable area of concern measuring 0.2 cm, and in the left breast 11 o'clock axis, 4 cm from the nipple. Bilateral ultrasound-guided biopsy is recommended for these masses. ASSESSMENT: BI-RADS Category 4: Suspicious.
== END 2024-05-19 23:59 | disposition home or self-care (01) ==
LOC: RAD 15:18
PROVIDERS: PCP Physician Assistant; Visit Provider Physician Assistant
DX: N63.11 Unspecified lump in the right breast, upper outer quadrant (principal); N63.22 Unspecified lump in the left breast, upper inner quadrant; Z80.3 Family history of malignant neoplasm of breast
CPT/HCPCS: 76641; 77062; 77066; G0279

== ENCOUNTER 2024-06-07 08:07 | Outpatient (CLI) | payer OTHER, SELFPAY ==
--- NOTE | 2024-06-07 08:11 | US_ITS ---
FINAL REPORT CLINICAL HISTORY: RT BREAST MASS 1100 -- FNA -- DR ODILIA ZARATE FINDINGS: ULTRASOUND-GUIDED RIGHT BREAST FNA TECHNIQUE: Limited images were obtained to localize region of interest. The right breast was prepped in a routine sterile fashion and locally anesthetized with 1% lidocaine. Standard written informed consent was obtained. A tiny nodule measuring approximately 1.5 mm was redemonstrated within the right breast at 11:00. This corresponds to a palpable abnormality. A 25-gauge needle was directed into the nodule. Tiny amount of fluid was aspirated and sent for cytology. Fluid had a typical appearance for a benign cyst. Lesion was no longer evident after aspiration. Patient could not physically localize the nodule after aspiration presumably representing decompression of the cyst. Procedure was well tolerated . CONCLUSION: 1. Technically successful ultrasound guided core biopsy of right breast lesion as above, presumably a benign cyst. Authenticated and ERN
--- NOTE | 2024-06-07 08:11 | US_ITS ---
FINAL REPORT CLINICAL HISTORY: LT BREAST MASS 1100 -- FNA -- DR ODILIA ZARATE FINDINGS: ULTRASOUND-GUIDED LEFT BREAST FINE-NEEDLE ASPIRATION TECHNIQUE: Limited images were obtained to localize region of interest. A tiny 4 x 2 mm nodule was redemonstrated in the left breast at 11:00 along breast implant surface. The left breast was prepped in a routine sterile fashion and locally anesthetized with 1% lidocaine. Standard written informed consent was obtained. A combination of 25 and 22-gauge needles were directed into the left breast nodule. No fluid could be readily aspirated. The lesion was either solid or extremely viscous fluid. 4 passes were made. Aspirate was sent for cytologic evaluation. Procedure was well tolerated . CONCLUSION: 1. Technically successful ultrasound guided FNA of tiny of left breast lesion as above. Authenticated and ERN
== END 2024-06-07 23:59 | disposition home or self-care (01) ==
PROVIDERS: PCP Physician Assistant; Visit Provider Physician Assistant
DX: R92.8 Other abnormal and inconclusive findings on diagnostic imaging of breast (principal)
CPT/HCPCS: 19083

== ENCOUNTER 2024-09-05 08:05 | Emergency (ER) | payer OTHER, SELFPAY ==
[2024-09-05 08:15] VITALS: BP 118/74; PULSE 66; RESP 17; TEMP 37.3; O2SAT 100; BMI 23.3
--- NOTE | 2024-09-05 08:31 | EXP.UTC ---
Discharge Plan Disposition Patient Disposition: Home, Self-Care Condition: Good Prescriptions Prescriptions: New azithromycin [Zithromax Z-Girma] 250 mg tablet See Rx Instructions .ROUTE .COMPLEX 5 Days Qty: 6 0RF Rx Instructions: For 250 mg dose pack: take 500 mg today (day 1), then 250 mg for 4 days (days 2-5) benzonatate 100 mg capsule 100 mg PO TID PRN (Reason: cough) Qty: 30 0RF No Action Trulance 3 mg tablet 3 mg PO DAILY Patient Comments: TAKE ONE TABLET BY MOUTH ONCE DAILY FOR 30 DAYS Referrals Follow up/Referrals: Lizette Leon PA [Primary Care Provider] - See instructions Activity Restrictions/Add. Instructions Additional Instructions/Restrictions: *Monitor Temp, Over the counter Motrin or Tylenol as directed/as needed Tylenol every 4 hours and Motrin every 6 hours (as long as your family doctor has told you that you can take it) for fever or pain. and straight to ER if unable to lower temp less than 101.0 after medication given *Warm salt water gargles may help to soothe the throat *Throat Lozenges? *Warm fluids like tea with honey may help to soothe the throat? *Sleep elevated *Humidifier/Vaporizer Your throat swab was sent for culture. Those results are typically sent to your primary care. Be sure to follow up in 2-3 days with your family doctor/primary care physician if no improvement so they can review those result and treat if necessary. If you don?t have a primary care doctor, I recommend you get one but in the mean time, you will have to return to a walk in clinic Follow up IMMEDIATELY for new or worsening symptoms or no Noticeable improvement over the next 48-72 hours. 911 for difficulty breathing or swallowing Clinical Impressions Clinical Impression: Pharyngitis Instructions Patient Instructions: Cough, Sore Throat Print Language Print Language: French Discharge ED Provider: Marilyn Medina [facility] [place] HPI General Stated complaint: congestion, sore throat, headache Mode of Arrival: Ambulatory Source of Information: Patient Limitations: No Limitations Time Seen by Provider: 09/05/24 08:31 Description of Symptoms (Recalled from Triage Doc. by RN): PATIENT BURNING THROAT, COUGH, CHEST CONGESTION, AND HEADACHE THAT STARTED FRIDAY NIGHT HEENT Symptoms (Recalled from RN notes): Yes Resp Symptoms (Recalled from RN notes): Yes Skin Symptoms (Recalled from RN notes): No MS Symptoms (Recalled from RN notes): No Functional Status (Recalled from RN notes): WNL History of Present Illness Provider Complaint: Patient states that she started feeling bad on Friday night States she has been having sore throat, chest congestion cough, burning with cough at times, nasal congestion and over all not feeling well States that she hasnt had a fever that she is aware of but today when the cough was still bothering her and felt like her chest was getting more congested she came in Related Data Home Medications ?Medication ?Instructions ?Recorded ?Confirmed plecanatide 3 mg tablet (Trulance) 3 mg PO DAILY 09/05/24 09/05/24 Previous Rx's ?Medication ?Instructions ?Recorded azithromycin 250 mg tablet See Rx Instructions PO .COMPLEX 5 09/05/24 (Zithromax Z-Girma) days #6 tabs benzonatate 100 mg capsule 100 mg PO TID PRN cough #30 caps 09/05/24 Allergies Allergy/AdvReac Type Severity Reaction Status Date / Time No Known Allergies Allergy Verified 05/16/23 06:40 Worker's Comp Is this a Worker's Comp case?: No [facility] Disclaimer: The information contained in this section may have been updated after the patient was seen, as this information can be updated by other users. Medical History (Updated 09/05/24 @ 08:44 by Marilyn Medina APRN) History of COVID-19 Hemorrhoid Right temporomandibular joint disorder, unspecified Depression Migraines Family history of rheumatoid arthritis Polyarthralgia Anxiety Vitamin D deficiency (~04/02/18) Greater trochanteric bursitis Right hip pain Dysphagia Surgical History History of cholecystectomy Hx of breast augmentation History of partial hysterectomy Family History Other Family history of arthritis Family history of cancer Family history of diabetes mellitus type II Social History Smoking Status: Never smoker alcohol intake: never substance use type: denies use current occupational status: employed Travel in the last 8 weeks: None household members: children housing: house lives independently: No marital status: education level: college service: No half-way: No caffeine: Yes do you feel safe at home: Yes victim of physical abuse: No victim of emotional abuse: No victim of sexual abuse: No would you like helpful sources: No Have you lived/traveled outside US in past 30 days?: No Contact w/someone who lives/traveled outside US past 30 days?: No Exposure to someone with infectious disease in past 14 days?: No Do you have a fever (greater than 100.4 F or 38 C)?: No Have you tested positive for COVID-19: No Exposed to someone with COVID-19 in past 14 days?: No Do you have a sore throat?: Yes Do you have a cough?: Yes Do you have any weakness?: No Do you have any diarrhea?: No Are you experiencing any unusual bleeding?: No Do you have any muscle aches/pain?: No Do you have any abdominal pain?: No Are you experiencing loss of taste or smell?: No ROS Obtained: Yes All systems reviewed & no additional complaints except as documented and Yes Systems reviewed as appropriate & no additional complaints except as documented Constitutional Constitutional: Reports system reviewed and no additional complaints, except as documented, Reports as per HPI and Reports headache(s) ENT Ears, Nose, Mouth, and Throat: Reports system reviewed and no additional complaints, except as documented, Reports as per HPI, Reports headache(s), Reports sinus pain, Reports sinus pressure and Reports sore throat Cardiovascular Cardiovascular: Reports system reviewed and no additional complaints, except as documented and Reports as per HPI Respiratory Respiratory: Reports system reviewed and no additional complaints, except as documented, Reports as per HPI, Denies shortness of breath, Reports chest congestion, Reports cough and Reports pain with cough (at times) Gastrointestinal Gastrointestingal: Reports system reviewed and no additional complaints, except as documented and as per HPI Genitourinary Female Genitourinary: Reports system reviewed and no additional complaints, except as documented and Reports as per HPI Neurologic Neurologic: Reports headache(s) Physical Exam General General appearance: alert and in no apparent distress ENT ENT exam: Present mucous membranes moist Expanded ENT Exam Nose exam: Present sinus tenderness Throat exam: Present tonsillar erythema Respiratory Respiratory exam: Present normal lung sounds bilaterally; Absent respiratory distress or wheezes Cardiovascular Cardiovascular exam: Present regular rate, normal rhythm and normal heart sounds Abdominal Exam Abdominal exam: Present soft and normal bowel sounds; Absent distention or tenderness Neurological Exam Neurological exam: Present alert, oriented X3 and normal gait Medical Decision Making Medical Records Screening: Per USPSTF and CDC recommendations, given the prevalence of disease in our region, it is our hospital?s policy to screen for HIV and viral Hepatitis for all patients aged 18 and over and those with ongoing risk factors. Roger Inquiry Pt receiving controlled substance: No Roger was queried for this patient: No Vital Signs: 09/05/24 08:15 Temperature 99.1 F Temperature Source Oral Pulse Rate [Left Brachial] 66 Respiratory Rate 17 Blood Pressure [Left Arm] 118/74 Blood Pressure Mean [Left Arm] 88 Blood Pressure Source [Left Arm] Automatic Cuff Blood Pressure Position [Left Arm] Sitting 02 Sat by Pulse Oximetry 100 Oxygen Delivery Method Room Air Lab Data Lab results reviewed: Yes I reviewed the patient's lab results.
[2024-09-05 08:46] VITALS: BP 118/74; PULSE 66; RESP 17; TEMP 37.3; O2SAT 100
[2024-09-05 08:48] LABS: UTC Influenza A Antigen Negative (Negative); UTC Influenza B Antigen Negative (Negative); UTC Strep Screen (Rapid) Negative (Negative)
== END 2024-09-05 08:49 | disposition home or self-care (01) ==
PROVIDERS: Emergency Provider Nurse Practitioner; PCP Physician Assistant
DX: J02.9 Acute pharyngitis, unspecified (principal)
CPT/HCPCS: 87804; 87880; 99213; G0381

== ENCOUNTER 2025-01-21 08:13 | Outpatient (CLI) | payer OTHER, SELFPAY ==
--- NOTE | 2025-01-21 08:16 | MM_ITS ---
PROCEDURE INFORMATION: Exam: MG Bilateral Screening 3D Mammography Exam date and time: 01/21/2025 8:18 AM Age: 44 years old Clinical indication: Screening examination TECHNIQUE: Imaging protocol: Bilateral Screening tomosynthesis and 2D mammography including computer-aided detection (CAD) when performed. COMPARISON: 1. MG MM DIG MAMM BI DX W/CAD 05/19/2024 4:09 PM 2. MG MM DIG MAMM DX BI IMPLANT CAD 08/18/2023 2:37 PM FINDINGS: MAMMOGRAPHY: Breast composition: There are scattered areas of fibroglandular density. Mass: None. Architectural distortion: None. Calcifications: No suspicious calcifications. Asymmetric density: None. Skin thickening: None. Axillary adenopathy: None. Other findings: Subpectoral saline breast implants are present. IMPRESSION: No mammographic evidence of malignancy. Annual screening is recommended unless otherwise clinically indicated. ASSESSMENT: BI-RADS 1, Negative.
--- OUTSIDE RECORDS SUMMARY | 2025-01-21 08:25 | XMS_ITS | Referral Summary ---
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 Name Role Phone Unavailable Primary Care Provider Unavailabl e Social History Tobacco Use Types Packs/Day Years Used Date Smoking Tobacco: Never Assessed Interpersonal Safety Answer Date Record ed Family or friends hurt you Not on file 04/13 Family or friends insult you Not on file 05/2024 Family or friends threaten you Not on file 0 04/13/2024 Family or friends scream or curse at you Not on file 04/13/2024 Food Insecurity Answer Date Recorded Food run out past 12 months Not on file 04/04 Food did not last past 12 months Not on file 04/13/2024 Employment Answer Date Recorded Help finding and keeping a job Not on file 0 04/13/2024 Family and Community Support Answer Prateek e Recorded Help with Day to Day Activities Not on file 04/13/2024 Feeling Lonely or Isolated Not on file 04/13 Educational Attainment Answer Date Jose J rded Speak language other than Armenian at home Not on file 04/13/2024 Want help with school or training Not on file 04/13/2024 Depression Answer Date Recorded PHQ-2 Risk Not on file 04/13/2024 Disabilities Answer Date Recorded Difficulty concentrating Not on file 024 Difficulty doing errands alone Not on file 0 04/13/2024 Substance Use Answer Date Recorded Used prescription meds for non-medical reasons N ot on file 04/13/2024 Used illegal drugs past 12 months Not on file 04/13/2024 Comments Unknown Sex and Gender Information Value Date Recorded Sex Assigned at Not on file Legal Sex Female 4:21 PM CDT Gender Identity Not on file Sexual Orientation Not on file Plan of Treatment Not on file Insurance [employer] [facility]
--- OUTSIDE RECORDS SUMMARY | 2025-01-21 08:25 | XMS_ITS | Clinical Summary ---
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 Name Role Phone Lizette Leon Primary Care Provider [phone] Family History Medical History Relation Name Comments Crohn's disease Other 1 Rheum arthritis Other 2 Lupus Other 3 Relation Name Status Comments Other 1 Other 2 Other 3 Social History Tobacco Use Types Packs/Day Years Used Date Smoking Tobacco: Never Alcohol Use Standard Drinks/Week Comments No 0 (1 standard drink = 0.6 oz pur e alcohol) Comments Unknown Sex and Gender Information Value Date Recorded Sex Assigned at Not on file Legal Sex Female 8:16 PM EDT Gender Identity Not on file Sexual Orientation Not on file Last Filed Vital Signs Vital Sign Reading Time Taken Comments Blood Pressure 110/70 09/24/2018 9:20 AM EST Pulse 73 09/24/2018 9:20 AM EST Temperature 36.7 C (98.1 F) 09/24/2018 9:20 AM EST Respiratory Rate 14 09/24/2018 9:20 AM EST Oxygen Saturation - - Inhaled Oxygen Concentration - - Weight 67 kg (147 lb 11.3 oz) 09/24/2018 9:20 AM EST Height 160 cm (5' 3 ) 09/24/2018 9:20 AM EST Body Mass Index 26.17 09/24/2018 9:20 AM EST Plan of Treatment Not on file Care Teams Corncob Pipe Manufacturing Supervisor Relationship Specialty Start Date End Date Lizette Leon PA [address] [place] [address] PCP - General 12/15/20
--- OUTSIDE RECORDS SUMMARY | 2025-01-21 08:25 | XMS_ITS | Clinical Summary ---
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 Name Role Phone Unavailable Primary Care Provider [...] Jose J rded Speak language other than Trinidadian at home Not on file 04/13/2024 Want [...] Orientation Not on file Plan of Treatment Health Maintenance Due Date Last Done Comments Depression Screening (12+) 1993 Tobacco Cessation Counseling and Screening (12+) 1993 Pap Smear 2002 Breast Cancer Screening 2021 COVID-19 VACCINE (3 - 2023-2 5 season) 2024 04/27/2021, 04/06/2021 Influenza Vaccine (Season Ended) 2025 DTAP/TDAP/TD VACCINES (2 - T d or Tdap) 05/13/2029 05/13/2019 Pneumococcal Vaccine: 0-49 Years Aged Out No longer eligible b ased on patient's age to complete this topic Insurance SHAHANA RODRIGUEZ [id number] [facility]
--- OUTSIDE RECORDS SUMMARY | 2025-01-21 08:25 | XMS_ITS | Data Portability ---
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 Results of dipstick were negative for UTI. Advised to drink clear fluids, Tylenol for pain and take prescribed medications as instructed. Patient encouraged to follow up within 1 week if not improving. Not available 04/09/2024 12:37:32 Plan of Treatment Reminders Order Date Submit Date Provider Last Modified By Organization Details Last Modified Time Details Appointments None recorded. Lab food allergen panel, serum 2024 025 [employer] ([facility], [address] [place] [address], [address], 5 11:01:48 food allergen panel, serum 2024 025 ROBB [facility]), [address] [place] [address], [address], 5 10:07:27 CBC w/ auto diff 2023 024 1d4 Pty [facility] ([facility], [address] [place] [address], [address], 4 16:23:03 CMP, serum or plasma 2023 024 1d4 Pty [facility], [address] [place], [address], 4 16:23:04 TSH, ultra-sensi tive, serum 2023 024 [email or web address] [facility] ([place]), [address] [place], [address], 4 16:23:04 vitamin D, 25-hydroxy, total, serum 2023 024 [email or web address] [facility] ([place]), [address] [place], [address], 4 16:23:04 HIV 1 + 2, meaningful use set 2023 024 [email or web address] [facility] ([place]), [address] [place], [address], 4 16:23:04 Hepatitis C IgG Ab, qual, serum 2023 024 [email or web address] [facility] ([place]), [address] [place], [address], 4 16:23:04 rapid strep group A, throat [address], [address], 4 11:55:16 rapid flu (A+B) [address], [address], 4 11:55:17 rapid SARS CoV 2 Ag, QL, IA, upper respiratory specimen [address], [address], 4 11:55:18 urinalysis, dipstick 2023 024 [facility], [address] [place] [address], [place], [address], 4 12:32:16 rapid strep group A, throat [address], [address] [place] [address], [place], [address], 3 09:23:58 rapid flu (A+B) [address], [address] [place] [address], [place], [address], 3 09:23:59 rapid SARS CoV 2 Ag, QL, IA, upper respiratory specimen [address], [address] [place] [address], [place], [address], 3 09:24:00 Referral gastroenter ologist referral - first available appt 2024 025 ROBB [facility], [address], [place], [address], 5 10:37:28 urologist referral - first available appt please 2023 024 [email or web address] [facility], [address], [address], [place], [address], 4 11:37:13 Procedures None recorded. Surgeries None recorded. Imaging XR, shoulder 2024 025 [facility], [address] [place] [address], [place], [address], 5 09:55:10 US, breast, bilateral, complete - same day as the mammogram 2023 024 [facility] (Scheduling), [address], [place], [address], 4 11:32:51 MAMMO, diagnostic, bilateral - h/o breast mass - 6 month f/u 2023 024 [facility] (Scheduling), [address], [place], [address], 4 11:32:03 Medication Orders Trulance 3 mg tablet 2024 025 [facility], [address] [place] [address], [address], 5 15:40:42 loratadine 10 mg tablet 2023 025 [facility], [address] [place] [address], [address], 5 17:58:47 ipratropium bromide 42 mcg (0.06 %) nasal spray 2023 024 [facility], [address] [place] [address], [address], 4 16:13:19 Zithromax Z-Girma 250 mg tablet 2022 024 [facility], [address] [place] [address], [address], 4 13:10:19 Patient TargetsNo targets recorded. Patient Instructions Encounter Date Encounter Id Patient Instructions Last Modified By Organization Details Last Modified Time 07/10/2023 [id number] Take medication as prescribed. Increase fluids and rest. Take Tylenol/Motrin as needed for fever/pain. Gargle with salt water/use throat lozenges for sore throat relief. If symptoms persist or worsen call the clinic. [email or web address] Not available 07/10/2023 09:12:21 Plan of care discussed with patient/guardian who voiced understanding. [email or web address] Not available 07/10/2023 09:13:22 04/09/2024 [id number] continue medication as previously prescribed. Follow up with Urologist. Increase fluids. Wipe from front to back. Void after intercourse. Do not hold urine. Urinate often. Take Tylenol/Motrin as needed for pain/fever. If symptoms persist or worsen call the clinic. Not available 04/09/2024 12:31:03 Plan of care discussed with patient/guardian who voiced understanding. Not available 04/09/2024 12:31:08 04/23/2024 [id number] Take medication as prescribed. Increase fluids and rest. Use humidifier at bedside. If symptoms persist or worsen call the clinic. Not available 04/23/2024 11:46:11 Plan of care discussed with patient/guardian who voiced understanding. Not available 04/23/2024 11:46:18 08/31/2024 [id number] learning about swallowing problems Not available 08/31/2024 17:51:27 constipation: care instructions [email or web address] Not available 08/31/2024 17:48:46 Reason for Referral Urologist Referral for Dysur ia first available appt please Referring Physician: Cami Khan, Family Medicine, Encounter Date: 04/09/2024 Dispute Specialist Referral for Dysphagia first available appt Referring Physician: Lizette Leon [facility], Encounter Date: 08/31/2024 Results Created Date Observation Date Name Description Value Unit Range Abnormal Flag Note LastModifiedBy Organization Detail LastModifiedTime 06/18/2006/18/2023 rapid SARS CoV 2 Ag, QL, IA, upper respi rator y speci men SARS CoV Ag negati ve Not Available [address], [address], 06/18/2023 09:56:26 06/18/2006/18/2023 rapid strep group A, throa t Strep negati ve Not Available [address], [address], 06/18/2023 09:55:30 06/18/20 23 06/18/2023 rapid flu (A+B) Flu A negati ve Not Available [address], [place], [address], 06/18/2023 09:55:36 06/18/20 23 06/18/2023 rapid flu (A+B) Flu B negati ve Not Available [address], [place], [address], 06/18/2023 09:55:36 07/10/20 23 07/10/2023 rapid SARS CoV 2 Ag, QL, IA, upper respi rator y speci men SARS CoV Ag negati ve Not Available [address], [place], [address], 07/10/2023 08:13:58 07/10/20 23 07/10/2023 rapid flu (A+B) Flu A negati ve Not Available [address], [place], [address], 07/10/2023 08:13:35 07/10/20 23 07/10/2023 rapid flu (A+B) Flu B negati ve Not Available [address], [place], [address], 07/10/2023 08:13:35 07/10/20 23 07/10/2023 rapid strep group A, throa t Strep positi ve Not Available [address], [place], [address], 07/10/2023 08:13:11 04/09/20 24 04/09/2024 urina lysis , dipst ick Leukocytes Trace Not Available [address], [place], [address], 04/09/2024 12:18:12 04/09/20 24 04/09/2024 urina lysis , dipst ick Nitrite negati ve Not Available [address], [place], [address], 04/09/2024 12:18:12 04/09/20 24 04/09/2024 urina lysis , dipst ick Urobilinogen .2 Not Available [address], [place], [address], 04/09/2024 12:18:12 04/09/20 24 04/09/2024 urina lysis , dipst ick Protein Negati ve Not Available [address], [place], [address], 04/09/2024 12:18:12 04/09/20 24 04/09/2024 urina lysis , dipst ick pH 5.0 Not Available [address], [place], [address], 04/09/2024 12:18:12 04/09/20 24 04/09/2024 urina lysis , dipst ick Blood Non-He molyze d: Trace Not Available [address], [place], [address], 04/09/2024 12:18:12 04/09/20 24 04/09/2024 urina lysis , dipst ick Specific [place] 1.005 Not Available [address], [place], [address], 04/09/2024 12:18:12 04/09/20 24 04/09/2024 urina lysis , dipst ick Ketone Trace Not Available [address], [place], [address], 04/09/2024 12:18:12 04/09/20 24 04/09/2024 urina lysis , dipst ick Bilirubin Negati ve Not Available [address], [place], [address], 04/09/2024 12:18:12 04/09/20 24 04/09/2024 urina lysis , dipst ick Glucose Negati ve Not Available [address], [place], [address], 04/09/2024 12:18:12 04/09/20 24 04/09/2024 urina lysis , dipst ick Appearance Clear Not Available [address], [place], [address], 04/09/2024 12:18:12 04/09/20 24 04/09/2024 urina lysis , dipst ick Color Yellow Not Available [address], [place], [address], 04/09/2024 12:18:12 04/23/20 24 04/23/2024 rapid SARS CoV 2 Ag, QL, IA, upper respi rator y speci men SARS CoV Ag negati ve Not Available [address], [place], [address], 04/23/2024 11:37:29 04/23/20 24 04/23/2024 rapid flu (A+B) Flu A negati ve Not Available [address], [place], [address], 04/23/2024 11:37:24 04/23/20 24 04/23/2024 rapid flu (A+B) Flu B negati ve Not Available [address], [place], [address], 04/23/2024 11:37:24 04/23/20 24 04/23/2024 rapid strep group A, throa t Strep negati ve Not Available [facility] - [address], [place], [address], 04/23/2024 11:37:19 09/01/19 25 09/01/2024 FOOD ALLER GY PROFI LE N232-BtE egg white COMMEN T kU/L Dupli dawna proce dure order ed. Not Available [facility] ([facility]) [address] [place], [address], 09/04/2024 10:07:27 09/01/19 25 09/01/2024 FOOD ALLER GY PROFI LE D684-AyL milk COMMEN T kU/L Dupli dawna proce dure order ed. Not Available [facility] ([facility]) [address] [place], [address], 09/04/2024 10:07:27 09/01/19 25 09/01/2024 FOOD ALLER GY PROFI LE W/REF GURPREET class description Commen t Level s of Speci fic IgE Class Descr iptio n of Class ----- ----- ----- ----- ----- -- ----- ----- ----- ----- ----- < 0.10 0 Negat melanie 0.10 - 0.31 0/I Equiv ocal/ Low 0.32 - 0.55 I Low 0.56 - 1.40 II Moder ate 1.41 - 3.90 III High 3.91 - 19.00 IV Very High 19.01 - 100.0 0 V Very High >100. 00 Very High Not Available [facility] ([facility]) [address] [place], [address], 09/04/2024 10:07:27 09/01/19 25 09/04/2024 FOOD ALLER GY PROFI LE W/REF GURPREET S220-FsK egg white <0.10 kU/L class 0 Not Available [facility] ([facility]) [address] [place], [address], 09/04/2024 10:07:27 09/01/19 25 09/04/2024 FOOD ALLER GY PROFI LE W/REF GURPREET Q681-TtG peanut <0.10 kU/L class 0 Not Available [facility] ([facility]) [address] [place], [address], 09/04/2024 10:07:27 09/01/19 25 09/04/2024 FOOD ALLER GY PROFI LE W/REF GURPREET J288-PyQ soybean <0.10 kU/L class 0 Not Available [facility] ([facility]) [address] [place], [address], 09/04/2024 10:07:27 09/01/19 25 09/04/2024 FOOD ALLER GY PROFI LE W/REF GURPREET J048-UvX milk <0.10 kU/L class 0 Not Available [facility] ([facility]) [address] [place], [address], 09/04/2024 10:07:27 09/01/19 25 09/04/2024 FOOD ALLER GY PROFI LE W/REF GURPREET B419-IeJ clam <0.10 kU/L class 0 Not Available [facility] ([facility]) [address] [place], [address], 09/04/2024 10:07:27 09/01/19 25 09/04/2024 FOOD ALLER GY PROFI LE W/REF GURPREET S619-OyV shrimp <0.10 kU/L class 0 Not Available [facility] ([facility]) [address] [place], [address], 09/04/2024 10:07:27 09/01/19 25 09/04/2024 FOOD ALLER GY PROFI LE W/REF GURPREET L948-YeZ walnut <0.10 kU/L class 0 Not Available [facility] ([facility]) [address] [place], [address], 09/04/2024 10:07:27 09/01/19 25 09/04/2024 FOOD ALLER GY PROFI LE W/REF GURPREET A307-AsF codfish <0.10 kU/L class 0 Not Available [facility] ([facility]) [address] [place], [address], 09/04/2024 10:07:27 09/01/19 25 09/04/2024 FOOD ALLER GY PROFI LE W/REF GURPREET I466-DuI scallop <0.10 kU/L class 0 Not Available [facility] ([facility]) [address] [place], [address], 09/04/2024 10:07:27 09/01/19 25 09/04/2024 FOOD ALLER GY PROFI LE W/REF GURPREET J687-FaI wheat <0.10 kU/L class 0 Not Available [facility] ([facility]) [address] [place], [address], 09/04/2024 10:07:27 09/01/19 25 09/04/2024 FOOD ALLER GY PROFI LE W/REF GURPREET W791-OzZ corn <0.10 kU/L class 0 Not Available [facility] ([facility]) [address] [place], [address], 09/04/2024 10:07:27 09/01/19 25 09/04/2024 FOOD ALLER GY PROFI LE W/REF GURPREET J763-JzE sesame seed <0.10 kU/L class 0 Not Available [facility] ([facility]) [address] [place], [address], 09/04/2024 10:07:27 05/07/20 24 09/03/2023 MAMMO , scree dao, digit al, bilat eral No observ ation record ed. [email or web address] [facility] (Med Record) [address], [place], [address], 09/02/2024 15:50:46 05/24/20 24 05/19/2024 MAMMO , diagn ostic , bilat eral No observ ation record ed. [address] (Scheduling) [address], [place], [address], 09/02/2024 15:50:46 05/24/20 24 05/19/2024 US, breas t, bilat eral, compl ete No observ ation record ed. [address] (Scheduling) [address], [place], [address], 09/02/2024 15:50:46 05/24/20 24 05/19/2024 US, breas t, bilat eral, compl ete No observ ation record ed. [address] (Scheduling) [address], [place], [address], 09/02/2024 15:50:45 05/28/20 24 05/19/2024 MAMMO , diagn ostic , bilat eral No observ ation record ed. [address] (Scheduling) [address], [place], [address], 09/02/2024 15:50:45 09/02/19 25 XR, shoul campos No observ ation record ed. [address], [address], 09/02/2024 15:55:30 Result Notes None recorded. Problems Name Problem SNOMED Code Status Onset Date Resolution Date Notes Provider Name and Address Organization Details Recorded Time Fibrocys tic change of right breast 93005898242 520756 Active 2023 MARCIO Mendiola [address] [place] [address], [place], [address] , [place] [facility] [employer] 13:32:44 Mammogra phic mass of bilatera l breasts [id number] 075576 Completed 202309/02/2024 MARCIO Mendiola [address] [place] [address], [address] , [employer] 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 13:32:47 Constipa tion 20405413 Active 2024 MARCIO Mendiola [address] [place] [address], [address] , [employer] 13:32:39 Dysphagi a 66168173 Active 2024 MARCIO Mendiola [address] [place] [address], [address] , [employer] 13:32:42 Pain of right shoulder joint 73273704405 744997 Active 2024 MARCIO Mendiola [address] [place] [address], [address] , [employer] 17:52:08 Otalgia of right ear 0707052590 Completed 202012/14/2021 Not Available [facility] 21:08:29 Acute sinusiti s 22478295 Completed 202112/14/2021 Problem Code: J01.90; Problem Code Type: ICD-10; Not Available [facility] 21:08:29 Acute respirat ory infectio ns 852388391 Completed 202012/14/2021 Problem Code: J22; Problem Code Type: ICD-10; Not Available [facility] 21:08:29 Low back pain 709207161 Completed 202112/14/2021 Problem Code: M54.5; Problem Code Type: ICD-10; Not Available [facility] 21:08:29 Pain in thoracic spine 381732324 Completed 202112/14/2021 Problem Code: M54.6; Problem Code Type: ICD-10; Not Available [facility] 21:08:29 Influenz a vaccine needed 15226570633 06 Completed 202012/14/2021 Problem Code: Z23; Problem Code Type: ICD-10; Not Available [facility] 21:08:30 Influenz a vaccine needed 67385591667 06 Completed 202012/14/2021 Problem Code: Z23; Problem Code Type: ICD-10; Not Available [facility] 21:08:30 Problem Notes None recorded. Procedures Surgical History Date Name Laterality Status Provider Name and Address Organization Details Recorded Time 05/19/20 24 Most Recent Mammogram completed [employer] 08/31/2024 17:41:46 04/05/20 21 arthroscopy completed Not Available [facility] 04/09/2022 22:56:20 04/05/20 21 cholecystectomy completed Not Available [facility] 04/09/2022 22:56:20 04/05/20 21 total hysterectomy completed Not Available [facility] 04/09/2022 22:56:22 11/08/19 20 Date of Last Pap Smear completed [employer] 05/07/2024 15:26:13 Breast Biopsy completed [employer] 08/31/2024 17:31:04 Colposcopy completed [employer] [facility] [employer] 08/31/2024 17:31:04 Hysterectomy completed [employer] [facility] [employer] 08/31/2024 17:31:04 Tubal Ligation completed [employer] 08/31/2024 17:31:04 Breast Implants completed [employer] 08/31/2024 17:31:04 Endometrial Ablation completed [employer] 08/31/2024 17:31:04 Gallbladder Surgery completed [employer] 08/31/2024 17:31:04 [facility]/31/[facility] 17:31:04 Imaging Results None recorded. Procedure Notes None recorded. Medical Equipment None Reported. Allergies No known drug allergies Medications Name Sig Start Date Stop Date Status Note LastModified by Organization Details LastModified Time amoxicillin 500 mg capsule TAKE 1 CAPSULE BY MOUTH THREE TIMES DAILY 06/18 completed Not Available Not Available Not Available promethazin e-DM 6.25 mg-15 mg/5 mL oral syrup TAKE 5 ML BY MOUTH EVERY 6 HOURS NEEDED FOR COUGH 10/18 completed Not Available Not Available Not Available esterified estrogens-m ethyltestos terone 0.625 mg-1.25 mg tablet TAKE 1 TABLET BY MOUTH ONCE DAILY FOR 3 WEEKS, THEN OFF 1 WEEK FOR 3 MONTHS. 09/02 completed Not Available Not Available Not Available azithromyci n 250 mg tablet TAKE 2 TABLETS BY MOUTH ON DAY 1, THEN TAKE 1 TABLET DAILY ON DAYS 2-5 active Not Available Not Available No t Available ibuprofen 800 mg tablet TAKE 1 TABLET BY MOUTH THREE TIMES DAILY WITH FOOD 06/18 completed Not Available Not Available Not Available meloxicam 15 mg tablet TAKE 1 TABLET BY MOUTH ONCE DAILY 07/10 completed Not Available Not Available Not Available phenazopyri dine 200 mg tablet TAKE 1 TABLET BY MOUTH EVERY 8 HOURS FOR PAIN FOR 2 DAYS 04/09 completed Not Available Not Available Not Available clonazepam 0.5 mg tablet TAKE 1/2 (ONE-HALF ) TABLET BY MOUTH TWICE DAILY 10/18 completed Not Available Not Available Not Available Zyrtec 10 mg tablet Take 1 tablet every day by oral route. 07/10 completed Not Available Not Available Not Available ciprofloxac in 500 mg tablet Take 1 tablet every 12 hours by oral route as directed for 10 days, for infection . 08/31 completed Not Available Not Available Not Available sulfamethox azole 800 mg-trimetho prim 160 mg tablet TAKE 1 TABLET BY MOUTH EVERY 12 HOURS FOR 7 DAYS 04/23 completed Not Available Not Available Not Available oxycodone-a cetaminophe n 5 mg-325 mg tablet TAKE 1 TABLET BY MOUTH EVERY 6 HOURS NEEDED FOR PAIN 06/18 completed Not Available Not Available Not Available amoxicillin 875 mg tablet TAKE 1 TABLET BY MOUTH EVERY 12 HOURS 10/18 completed Not Available Not Available Not Available lorazepam 0.5 mg tablet TAKE 1 TABLET BY MOUTH EVERY 8 HOURS NEEDED FOR ANXIETY 09/02 completed Not Available Not Available Not Available benzonatate 100 mg capsule TAKE ONE CAPSULE BY MOUTH THREE TIMES DAILY NEEDED FOR COUGH active Not Available Not Available No t Available methylpredn isolone 4 mg tablets in a dose pack TAKE 6 TABLETS BY MOUTH ON DAY 1, TAKE 5 TABS ON DAY 2 ,TAKE 4 TABS ON DAY 3, TAKE 3 TABS ON DAY 4 , TAKE 2 TABS ON DAY 5, THEN TAKE 1 TAB ON DAY 6 active Not Available Not Available No t Available Prozac 10 mg capsule take 1 capsule (10 mg) by oral route once daily 12/14 completed Not Available Not Available Not Available ipratropium bromide 42 mcg (0.06 %) nasal spray SPRAY TWO SPRAYS in EACH NOSTRIL THREE TIMES DAILY 05/07 completed Not Available Not Available Not Available bromphenira mine-pseudo ephedrine-D M 2 mg-30 mg-10 mg/5 mL oral syrup take 10 millilite rs by oral route every 4 hours 12/14 completed Not Available Not Available Not Available fluticasone propionate 50 mcg/actuati on nasal spray,suspe nsion inhale 1 spray (50 mcg) in each nostril by intranasa l route 2 times per day 08/13 completed Not Available Not Available Not Available loratadine 10 mg tablet take 1 tablet (10 mg) by oral route once daily 08/31 completed Not Available Not Available Not Available cyclobenzap rine 5 mg tablet TAKE 1 TABLET BY MOUTH THREE TIMES DAILY NEEDED FOR MUSCLE SPASM 06/18 completed Not Available Not Available Not Available duloxetine 20 mg capsule,del ayed release take 1 capsule (20 mg) by oral route 2 times per day 09/02 completed Not Available Not Available Not Available duloxetine 30 mg capsule,del ayed release TAKE 1 CAPSULE BY MOUTH ONCE DAILY 09/02 completed Not Available Not Available Not Available duloxetine 60 mg capsule,del ayed release TAKE 1 CAPSULE BY MOUTH ONCE DAILY 09/02 completed Not Available Not Available Not Available GaviLyte-G 236 gram-22.74 gram-6.74 gram-5.86 gram oral solution MIX AND DRINK 240ML BY MOUTH EVERY 10 MINUTES UNTIL FECAL EFFLUENT IS CLEAR 06/18 completed Not Available Not Available Not Available Latuda 20 mg tablet TAKE 1 TABLET BY MOUTH ONCE DAILY MUST ADMINISTE R WITH FOOD (AT LEAST 350 CALORIES) 09/02 completed Not Available Not Available Not Available Linzess 145 mcg capsule TAKE 1 CAPSULE BY MOUTH ONCE DAILY 07/10 completed Not Available Not Available Not Available Vraylar 1.5 mg capsule TAKE 1 CAPSULE BY MOUTH ONCE DAILY 06/18 completed Not Available Not Available Not Available Trulance 3 mg tablet TAKE ONE TABLET BY MOUTH ONCE DAILY FOR 30 DAYS active Not Available Not Available No t Available Rybelsus 7 mg tablet Take 1 tablet every day by oral route as directed. 08/31 completed Not Available Not Available Not Available Vitals Date Recorded Body height Body mass index (BMI) Body weight Heart rate Oxygen saturation Oxygen saturation in Arterial blood by Pulse oximetry Body temperature Systolic blood pressure Diastolic blood pressure Provider Name and Address Organization Details Last Updated DateTime 5 160.02 cm 24 kg/m2 56486.4 1 g 60 /min 98 % 98 % 98.3 [degF] 138 mm[Hg] 77 mm[Hg] [facility] [employer] 5 17:36:34 Date Recorded Body height Body mass index (BMI) Body weight Body temperature Heart rate Oxygen saturation Oxygen saturation in Arterial blood by Pulse oximetry Systolic blood pressure Diastolic blood pressure Provider Name and Address Organization Details Last Updated DateTime 4 160.02 cm 21.6 kg/m2 45184.2 7 g 98.5 [degF] 80 /min 99 % 99 % 114 mm[Hg] 70 mm[Hg] Abby Gudino [employer] 4 12:16:55 Date Recorded Body height Body mass index (BMI) Body weight Body temperature Heart rate Oxygen saturation Oxygen saturation in Arterial blood by Pulse oximetry Systolic blood pressure Diastolic blood pressure Provider Name and Address Organization Details Last Updated DateTime 4 160.02 cm 21.7 kg/m2 16112.6 7 g 97.7 [degF] 78 /min 97 % 97 % 116 mm[Hg] 70 mm[Hg] [employer] 4 11:36:38 Date Recorded Body height Body mass index (BMI) Body weight Heart rate Oxygen saturation Oxygen saturation in Arterial blood by Pulse oximetry Systolic blood pressure Diastolic blood pressure Provider Name and Address Organization Details Last Updated DateTime 4 160.02 cm 22.3 kg/m2 31211.6 4 g 62 /min 98 % 98 % 108 mm[Hg] 72 mm[Hg] [facility] [employer] 4 15:24:57 Date Recorded Body height Body mass index (BMI) Body weight Body temperature Heart rate Oxygen saturation Oxygen saturation in Arterial blood by Pulse oximetry Systolic blood pressure Diastolic blood pressure Provider Name and Address Organization Details Last Updated DateTime 3 160.02 cm 22.1 kg/m2 35965.0 5 g 98.8 [degF] 89 /min 98 % 98 % 114 mm[Hg] 74 mm[Hg] Abby [employer] 3 08:10:09 Social History Question Answer Notes LastModified by Organizat ion Details LastModified Time Tobacco Smoking Status Never Smoker SocialHi storyBacilio morrell: 'Tobacco /Alcohol /Supplem ents'; SocialHi storyMessi velazquez: 'Never Smoker'; Not Available [facility] 04/09/2022 22:56:37 Do You Have An Advance Directive? No Information not available 05/07/2024 Is Your Home Air Conditioned? Yes Information not available 05/07/2024 Are You Blind Or Do You Have Difficulty Seeing? No Information not available 05/07/2024 What Is Your Level Of Caffeine Consumption? Heavy Information not available 08/31/2024 What Type Of Leadership Recruiter Do You Use? None Information not available 08/31/2024 In The 14 Days Before Symptom Onset, Have You Had Close Contact With A Laboratory-[facility] marianne[facility] COVID-19 While That Case Was Ill? No Information not available 05/07/2024 In The 14 Days Before Symptom Onset, Have You Had Close Contact With A Person Who Is Under Investigation For COVID-19 While That Person Was Ill? No Information not available 05/07/2024 Have You Been To An Area Known To Be High Risk For COVID-19? No Information not available 05/07/2024 Are You Deaf Or Do You Have Serious Difficulty Hearing? No Information not available 05/07/2024 What Type Of Diet Are You Following? REGULAR Information not available 05/07/2024 Who Is Your Employer? [employer] Information not available 08/31/2024 How Many Days Of Moderate To Strenuous Exercise, Like A Brisk Walk, Did You Do In The Last 7 Days? 4 Information not available 08/31/2024 Have There Been Any Changes To Your Family Or Social Situation? No Information not available 08/31/2024 Are There Any Guns Present In Your Home? No Information not available 08/31/2024 Which Of Your Hands Is Dominant? Right Information not available 05/07/2024 What Is Your Home Situation? Other Information not available 08/31/2024 Do You Have A Medical Power Of Biogeographer? No Information not available 05/07/2024 What Was The Date Of Your Most Recent Tobacco Screening? 08/31/2024 Information not available 08/31/2024 Do You Have Any Pets? Yes Information not available 08/31/2024 Do You Use Protection During Sex? No Information not available 08/31/2024 What Is Your Relationship Status? Information not available 05/07/2024 Have You Repeated Any Grades? No Information not available 08/31/2024 Do You Use Your Seat Belt Or Car Seat Routinely? Yes Information not available 08/31/2024 Are You Sexually Active? Yes Information not available 08/31/2024 Do You Have Any Siblings? Yes Information not available 08/31/2024 Do You Have Smoke And Carbon Monoxide Detectors In Your Home? Yes Information not available 05/07/2024 Are You Passively Exposed To Smoke? No Information not available 05/07/2024 Are There Any Smokers In Your House? Yes Information not available 08/31/2024 Do You Participate In Social Media? Yes Information not available 08/31/2024 Do You Use Sunscreen Routinely? No Information not available 08/31/2024 Has Tobacco Cessation Counseling Been Provided? No Information not available 05/07/2024 Have You Recently Traveled Abroad? No Information not available 05/07/2024 Do You Have Difficulty Walking Or Climbing Stairs? No Information not available 05/07/2024 Are You Currently In School? No Information not available 08/31/2024 What Contraceptive Method Was Reported At Start Of This Visit? Female Sterilization Information not available 08/31/2024 Do You Have Any Dietary Restrictions? No Information not available 08/31/2024 Sex: Female Functional Status Question Answer Note LastModified by Organizat ion Details LastModified Time Do you use any illicit or recreational drugs? No Information not available 08/31/2024 Do you or have you ever used any other forms of tobacco or nicotine? No Information not available 05/07/2024 What is your level of alcohol consumption? None Information not available 06/18/2023 Are you currently employed? Yes Information not available 08/31/2024 Do you have transportation difficulties? No Information not available 05/07/2024 Are you able to walk? YESWOREST Information not available 05/07/2024 Do you have difficulty doing errands alone? No Information not available 05/07/2024 Are you able to care for yourself? Yes Information not available 05/07/2024 Do you have difficulty dressing or bathing? No Information not available 05/07/2024 What is your exercise level? Moderate Information not available 08/31/2024 Mental Status Question Answer Note LastModified by Organizat ion Details LastModified Time Do you feel stressed (tense, restless, nervous, or anxious, or unable to sleep at night)? [id number] Information not available 08/31/2024 Do you have difficulty concentrating, remembering or making decisions? No Information no t available 05/07/2024 Are you or have you been involved with bullying? No Information not available 08/31/2024 Family History Relationship Description Onset Age of this Age Resolved Age Notes LastModified by Organization Details LastModified Time Unspecified Relation Family history of Hypothyroidi sm Relati ve: ''; [email or web address] Not available 04/09/2022 23:01:28 Unspecified Relation Family history of breast cancer Relati ve: ''; [email or web address] Not available 04/09/2022 23:01:28 Notes:*Procedure Description : Documented family medical history in mother*Relative: Mother *Procedure Description: Documented family medical history in sister*Relative: Sister *Procedure Description: Family history of Crohn's disease*Relative: Unspecified Relation *Problem: Relative: ''; Medical History Condition Response Coronary Artery Disease N Gout N Other N Kidney Stones N Blood Diseases N Hyperthyroidism N Breast Cancer N Blood Transfusion N Emergency room visit since last appointm ent. N Hypothyroidism N Dermatologic Disorders N Depression N COPD N Lung Disease N Developmental or Behavioral Disorders N Defects or Inherited Disease N Breast Problem N Difficulty Swallowing N Anesthesia Complications N History of STI N Anxiety Disorder Y Meniere's disease N Autoimmune disease N Muscle, Joint, or Bone Problems N Vision or Eye Problems N Arthritis N Infertility N Polyps N Mental Disorder N Congenital Anomalies N Acid Reflux (GERD) N Cancer N Stroke N Neurologic/Epilepsy N Endometriosis N Bladder or Kidney Problems N High Cholesterol N Liver Disease N Organ Transplant N Psychiatric/Mental Health Condition N Dialysis N Headaches N Fibromyalgia N Schizophrenia N Kidney Disease N Allergies/Hayfever N Heart Problems N Ear or Hearing Problems N Hospitalizations N Learning Disorder N Artificial Joints N Thyroid Problems N GI Problems N Acne N ADD/ADHD N Eating Disorder N Anemia N Constipation N Mental Illness N Diabetes N Ovarian Cancer N Bedwetting N Hepatitis/Liver Disease N Tuberculosis N Eczema N Abuse/Domestic Violence N Diverticulitis N Asthma N Trauma/Violence N Substance Abuse N Reflux/GERD N Depression/ depression N Hepatitis N Heart Disease N Pulmonary Embolism N Tourette Syndrome N Chronic Ear Infections N Pre-Eclampsia N Hypertension N Chicken Pox N Autism Spectrum Disorder (ASD) N Osteoporosis N Thrombophilias N Gynecological History Statement/Question Response Menses Monthly N HPV Vaccine N Date of Last Pap Smear 11/08/2019 Current Control Method Hysterectom y Most Recent Mammogram 05/19/2024 Age at First Child 20 Obstetrics History GPAL:G 0 P 0 0 0 0 Immunizations Vaccine Type Date Status Note Provider Nam e and Address Organization Details Recorded Time COVID-19, mRNA, LNP-S, PF, 30 mcg/0.3 mL dose 1 completed Not Available [facility] 04/09/2022 23:41:43 COVID-19, mRNA, LNP-S, PF, 30 mcg/0.3 mL dose 1 completed Not Available [facility] 04/09/2022 23:41:43 Tdap 9 completed Jyoti Vice null, [employer] 05/07/2024 15:24:33 TST-PPD intradermal 5 completed Jyoti Vice null, [employer] 05/07/2024 15:24:33 Past Encounters Encounter ID Performer Location Encounter Start Date Encounter Closed Date Diagnosis/Indication Diagnosis SNOMED-CT Code Diagnosis ICD10 Code Diagnosis Note [id number] Dominique Barnett APRN [address] [address] 09/02/2022 08:17:30 09/08/2022 11:16:03 Acute upper respiratory infection 14431882 J06.9 [id number] Dominique Barnett APRN [address] [address] 10/18/2022 09:54:52 10/18/2022 11:43:39 Acute upper respiratory infection 29056747 J06.9 [id number] Dominique Barnett APRN [address] [address] 06/18/2023 09:52:12 06/18/2023 11:36:58 Acute upper respiratory infection 62926836 J06.9 Normal bod y mass index 12676593 Z68.22 [id number] Dominique Barnett APRN [address] [address] 07/10/2023 08:07:10 07/11/2023 10:40:19 Acute upper respiratory infection 11517166 J06.9 Streptococ april sore throat 55120549 J02.0 Body mass index 20-24 - normal 562383140 Z68.22 [id number] Cami Khan APRN [address] [address] 04/09/2024 10:52:30 04/12/2024 13:23:17 Dysuria 44564748 R30.0 pt was just prescribed pyridium on Friday Normal weight 90626042 Z 68.21 [id number] Cami Khan APRN [address] [address] 04/23/2024 11:32:05 04/26/2024 14:21:53 Seasonal allergic rhinitis 439513322 J30.2 Posterior rhinorrhea 758 38123 R09.82 [id number] MARCIO Mendiola [address] [address] 05/07/2024 14:58:36 05/07/2024 16:11:19 Family history of breast cancer 034327256 Z80.3 Adult heal th examination 163235937 Z00.00 Influenza vaccination declined 325289763 Z28.21 Fibrocysti c change of right breast [id number] N60.11 [id number] MARCIO Mendiola [address] [place] [address] 08/31/2024 17:04:43 08/31/2024 18:04:26 Constipation 89458210 K59.00 Dysphagia 49536652 R13.1 0 Pain of ri ght shoulder joint 4510081118 2806158 M25.511 Health Concerns Section Related Observation LastModified by Organization Detai ls LastModified Time None Recorded Concern Status LastModified by Organization Details LastModified Time None Recorded Advance Directives Directive N: Payers Insurance Date Sequence Insurance Name Policy Number Policy Santiago Covered Member ID Santiago Member ID Guarantor Name 10/14/2024 1 UNSPECIFIED REMIT PAYOR Meenu Hale 09/08/2024 1 [employer] [facility] (MEDICAID HMO) Meenu Hale [id number] Meenu Hale Notes Date Note Type Note Provider Name and Address Organization Details Recorded Time 07/10/2023 text/html Upper Respirator y SymptomsReported bypatient.Location:[address]; throat; nasal Quality:dry cough Severity:mild; moderate Duration:symptoms lasting less than 2 weeks Context:sick contact Associated Symptoms:sore throat;malaiseNotes:Pt 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 Dominique Barnett, HAND BUFFER [address] [place], [address], [employer] 07/10/2023 09:24:53 04/09/2024 text/html Lower Urinary Tr act Symptoms (LUTS)Reported bypatient.Location:rig [facility]t Quality:pressure Severity:improving Onset/Timing:Friday Context:abnormal voiding frequency Associated Symptoms:no flank pain; no low back pain; no chills; no fever;groin painNotes:43 year old female presents with complaint of pressure in her right lower abd. She states that she was at urgent treatment on Friday and was treated with Bactrim for a UTI. She states that she was passing blood clots in her urine. She states that her symptoms have improved since she started the Bactrim and she has 2 days left of medication. She states that when she was 18 she had to have a stent placed in her ureter on the right side side. She states that she has a history of kidney stones/calcifications. Cami Khan APRN [address] [place], [address], [employer] 04/09/2024 12:37:57 04/23/2024 text/html Upper Respirator y SymptomsReported bypatient.Location:hea d; chest; throat; nasal; ears Quality:productive cough;dry cough Severity:mild; moderate Duration:symptoms lasting less than 2 weeks Onset/Timing:gradual Associated Symptoms:sore throat;headacheNotes:[age] year old female presents with complaint of headache, left ear pain, a cough that is dry but is also productive at times. She denies any sick contacts. Cami Khan APRN [address] [place], [address], [employer] 04/23/2024 11:57:21 05/07/2024 text/html Patient presents to establish care. Due for mammogram/breast US. Had cyst biopsied last September - due for 6 month f/u though biopsy was benign. Sister from triple positive breast CA. She has history of breast implants. Thought she felt a knot in her left breast a few weeks ago but it is gone now. Would also like routine labs. MARCIO Mendiola [address] [place], [address], [employer] 05/07/2024 16:53:41 08/31/2024 text/html Patient presents for followup. Has difficulty having a regular bowel movement. She tried enemas, stool softeners, laxatives. Tried Linzess. Feels bloated and uncomfortable all the time.Has pain in her right shoulder. Catches with certain activities. Hurts to lay on it.Has difficulty swallowing at times. MARCIO Mendiola [address] [place], [address], [employer] 09/02/2024 15:55:14 OBGyn Episode No OBEpisode recorded.
== END 2025-01-21 23:59 | disposition home or self-care (01) ==
LOC: RAD 08:13
PROVIDERS: PCP Physician Assistant; Visit Provider Physician Assistant
DX: Z12.31 Encounter for screening mammogram for malignant neoplasm of breast (principal); R92.323 Mammographic fibroglandular density, bilateral breasts
CPT/HCPCS: 77063; 77067

== ENCOUNTER 2025-01-26 22:45 | Emergency (ER) | payer SELFPAY ==
[2025-01-26 22:49] VITALS: BP 109/73; PULSE 64; RESP 18; TEMP 36.8; O2SAT 99; BMI 22.1
[2025-01-26 22:55] VITALS: BP 129/88; PULSE 83; RESP 18; O2SAT 98
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
--- OUTSIDE RECORDS SUMMARY | 2025-01-26 23:18 | XMS_ITS | Referral Summary ---
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
--- OUTSIDE RECORDS SUMMARY | 2025-01-26 23:19 | XMS_ITS | Clinical Summary ---
Author Organization Healthcare Address [address] [place] [address] Care Team Providers Care Liner Checker Name Role Phone Lizette Leon Primary Care Provider Family History Medical History Relation Name Comments [...] of Treatment Not on file Care Teams Liner Checker Relationship Specialty Start Date End Date Lizette Leon PA [address] [place] [address] PCP - General 12/15/20
--- OUTSIDE RECORDS SUMMARY | 2025-01-26 23:19 | XMS_ITS | Data Portability ---
Author Organization [facility] [employer] [facility] Address [address] [place] [address] Care Team Providers Care Children'S Attendant Name Role Phone [facility] Primary Care Provider Assessment Encounter Date Assessment Date Assessment LastModified [...] Lab food allergen panel, serum 2024 025 [email or web address] ([facility], [address] [place] [address], [address], 5 11:01:48 food allergen panel, serum 2024 025 ROBB [facility] ([place]), [address] [place] [address], [address], 5 10:07:27 CBC w/ auto diff 2023 024 [facility], [address] [place] [address], [address], 4 16:23:03 CMP, serum or plasma 2023 024 [email or web address] [facility] ([facility], [address] [place], [address], 4 16:23:04 TSH, ultra-sensi tive, serum 2023 024 [email or web address] [facility] ([place]), [address] [place], [address], 4 16:23:04 vitamin D, 25-hydroxy, total, serum 2023 024 [email or web address] [facility] ([place]), [address] [place], [address], 4 16:23:04 HIV 1 + 2, meaningful use set 2023 024 [email or web address] [facility] ([place]), [address] [place], [address], 4 16:23:04 Hepatitis C IgG Ab, qual, serum 2023 024 [facility] ([place]), [address] [place], [address], 4 16:23:04 rapid strep group A, throat [address], [address], 4 11:55:16 rapid flu (A+B) [address], [address], 4 11:55:17 rapid SARS CoV 2 Ag, QL, IA, upper respiratory specimen [address], [address], 4 11:55:18 urinalysis, dipstick 2023 024 [facility], [address] [place] [address], [place], [address], 4 12:32:16 rapid strep group A, throat [address], [address] [place] [address], [place], [address], 3 09:23:58 rapid flu (A+B) [address], [address] [place] [address], [place], [address], 3 09:23:59 rapid SARS CoV 2 Ag, QL, IA, upper respiratory specimen [address], [address] [place] [address], [place], [address], 3 09:24:00 Referral gastroenter ologist referral - first available appt 2024 025 ROBB [facility] [employer], [address], [place], [address], 5 10:37:28 urologist referral - first available appt please 2023 024 [email or web address], [address], [place], [address], 4 11:37:13 Procedures None recorded. Surgeries None recorded. Imaging XR, shoulder 2024 025 [facility], [facility], [place], [address], 5 09:55:10 US, breast, bilateral, complete - same day as the mammogram 2023 [facility] (Scheduling), [address], [place], [address], 4 11:32:51 MAMMO, diagnostic, bilateral - h/o breast mass - 6 month f/u 2023 024 [facility] (Scheduling), [address], [place], [address], 4 11:32:03 Medication Orders Trulance 3 mg tablet 2024 025 [facility], [address] [place] [address], [address], 5 15:40:42 loratadine 10 mg tablet 2023 025 [facility], [address] [place] [address], [address], 5 17:58:47 ipratropium bromide 42 mcg (0.06 %) nasal spray 2023 024 [facility], [address] [place] [address], [address], 4 16:13:19 Zithromax Z-Girma 250 mg tablet 2022 024 [facility], [address] [place] [address], [address], 4 13:10:19 Patient TargetsNo targets recorded. Patient Instructions Encounter Date Encounter Id Patient Instructions Last Modified By Organization Details Last Modified Time 07/10/2023 [id number] Take medication as prescribed. Increase fluids and rest. Take Tylenol/Motrin as needed for fever/pain. Gargle with salt water/use throat lozenges for sore throat relief. If symptoms persist or worsen call the clinic. [email or web address] Not available 07/10/2023 09:12:21 Plan of care discussed with patient/guardian who voiced understanding. [email or web address] Not available 07/10/2023 09:13:22 04/09/2024 [id number] continue medication as previously prescribed. Follow up with Urologist. Increase fluids. Wipe from front to back. Void after intercourse. Do not hold urine. Urinate often. Take Tylenol/Motrin as needed for pain/fever. If symptoms persist or worsen call the clinic. Not available 04/09/2024 12:31:03 Plan of care discussed with patient/guardian who voiced understanding. Not available 04/09/2024 12:31:08 04/23/2024 [id number] Take medication as prescribed. Increase fluids and rest. Use humidifier at bedside. If symptoms persist or worsen call the clinic. Not available 04/23/2024 11:46:11 Plan of care discussed with patient/guardian who voiced understanding. Not available 04/23/2024 11:46:18 08/31/2024 [id number] learning about swallowing problems [email or web address] Not available 08/31/2024 17:51:27 constipation: care instructions Not available 08/31/2024 17:48:46 Reason for Referral Urologist Referral for Dysur ia first available appt please Referring Physician: Cami Khan [facility], Encounter Date: 04/09/2024 [employer] Referral for Dysphagia first available appt Referring Physician: Lizette Leon [facility], Encounter Date: 08/31/2024 Results Created Date Observation Date Name Description Value Unit Range Abnormal Flag Note LastModifiedBy Organization Detail LastModifiedTime 06/18/20 23 06/18/2023 rapid SARS CoV 2 Ag, QL, IA, upper respi rator y speci men SARS CoV Ag negati ve Not Available [address], [address], 06/18/2023 09:56:26 06/18/20 23 06/18/2023 rapid strep group A, throa t Strep negati ve Not Available [address], [address], 06/18/2023 09:55:30 06/18/20 23 06/18/2023 rapid flu (A+B) Flu A negati ve Not Available [address], [place], [address], 06/18/2023 09:55:36 06/18/20 23 06/18/2023 rapid flu (A+B) Flu B negati ve Not Available [address], [place], [address], 06/18/2023 09:55:36 07/10/20 23 07/10/2023 rapid SARS CoV 2 Ag, QL, IA, upper respi rator y speci men SARS CoV Ag negati ve Not Available [address], [place], [address], 07/10/2023 08:13:58 07/10/20 23 07/10/2023 rapid flu (A+B) Flu A negati ve Not Available [address], [place], [address], 07/10/2023 08:13:35 07/10/20 23 07/10/2023 rapid flu (A+B) Flu B negati ve Not Available [address], [place], [address], 07/10/2023 08:13:35 07/10/20 23 07/10/2023 rapid strep group A, throa t Strep positi ve Not Available [address], [place], [address], 07/10/2023 08:13:11 04/09/20 24 04/09/2024 urina lysis , dipst ick Leukocytes Trace Not Available [address], [place], [address], 04/09/2024 12:18:12 04/09/20 24 04/09/2024 urina lysis , dipst ick Nitrite negati ve Not Available [address], [place], [address], 04/09/2024 12:18:12 04/09/20 24 04/09/2024 urina lysis , dipst ick Urobilinogen .2 Not Available [address], [place], [address], 04/09/2024 12:18:12 04/09/2004/09/2024 urina lysis , dipst ick Protein Negati ve Not Available [address], [place], [address], 04/09/2024 12:18:12 04/09/20 24 04/09/2024 urina lysis , dipst ick pH 5.0 Not Available [address], [place], [address], 04/09/2024 12:18:12 04/09/2004/09/2024 urina lysis , dipst ick Blood Non-He molyze d: Trace Not Available [address], [place], [address], 04/09/2024 12:18:12 04/09/2004/09/2024 urina lysis , dipst ick Specific [place] 1.005 Not Available [address], [place], [address], 04/09/2024 12:18:12 04/09/20 24 04/09/2024 urina lysis , dipst ick Ketone Trace Not Available [address], [place], [address], 04/09/2024 12:18:12 04/09/20 24 04/09/2024 urina lysis , dipst ick Bilirubin Negati ve Not Available [address], [place], [address], 04/09/2024 12:18:12 04/09/20 24 04/09/2024 urina lysis , dipst ick Glucose Negati ve Not Available [address], [place], [address], 04/09/2024 12:18:12 04/09/20 24 04/09/2024 urina lysis , dipst ick Appearance Clear Not Available [address], [place], [address], 04/09/2024 12:18:12 04/09/20 24 04/09/2024 urina lysis , dipst ick Color Yellow Not Available [address], [place], [address], 04/09/2024 12:18:12 04/23/20 24 04/23/2024 rapid SARS CoV 2 Ag, QL, IA, upper respi rator y speci men SARS CoV Ag negati ve Not Available [address], [place], [address], 04/23/2024 11:37:29 04/23/20 24 04/23/2024 rapid flu (A+B) Flu A negati ve Not Available [address], [place], [address], 04/23/2024 11:37:24 04/23/20 24 04/23/2024 rapid flu (A+B) Flu B negati ve Not Available [address], [place], [address], 04/23/2024 11:37:24 04/23/20 24 04/23/2024 rapid strep group A, throa t Strep negati ve Not Available [facility] - [address], [place], [address], 04/23/2024 11:37:19 09/01/19 25 09/01/2024 FOOD ALLER GY PROFI LE A320-OtP egg white COMMEN T kU/L Dupli dawna proce dure order ed. Not Available [facility] ([facility]) [address] [place], [address], 09/04/2024 10:07:27 09/01/19 25 09/01/2024 FOOD ALLER GY PROFI LE I562-YyU milk COMMEN T kU/L Dupli dwana proce dure order ed. Not Available [facility] ([facility]) [address] [place], [address], 09/04/2024 10:07:27 09/01/19 25 09/01/2024 FOOD ALLER [...] >100. 00 Very High Not Available [facility] ([facility]) [address] [place], [address], 09/04/2024 10:07:27 09/01/19 25 09/04/2024 FOOD ALLER GY PROFI LE W/REF GURPREET C871-AdH egg white <0.10 kU/L class 0 Not Available [facility] ([facility]) [address] [facility], [place], [address], 09/04/2024 10:07:27 09/01/19 25 09/04/2024 FOOD ALLER GY PROFI LE W/REF GURPREET Z181-UvK peanut <0.10 kU/L class 0 Not Available [facility] ([facility]) [address] [place], [address], 09/04/2024 10:07:27 09/01/19 25 09/04/2024 FOOD ALLER GY PROFI LE W/REF GURPREET S648-GfP soybean <0.10 kU/L class 0 Not Available [facility] ([facility]) [address] [place], [address], 09/04/2024 10:07:27 09/01/19 25 09/04/2024 FOOD ALLER GY PROFI LE W/REF GURPREET S107-XgJ milk <0.10 kU/L class 0 Not Available [facility] ([facility]) [address] [place], [address], 09/04/2024 10:07:27 09/01/19 25 09/04/2024 FOOD ALLER GY PROFI LE W/REF GURPREET A611-UgR clam <0.10 kU/L class 0 Not Available [facility] ([facility]) [address] [place], [address], 09/04/2024 10:07:27 09/01/19 25 09/04/2024 FOOD ALLER GY PROFI LE W/REF GURPREET C284-IrP shrimp <0.10 kU/L class 0 Not Available [facility] ([facility]) [address] [place], [address], 09/04/2024 10:07:27 09/01/19 25 09/04/2024 FOOD ALLER GY PROFI LE W/REF GURPREET A012-LcX walnut <0.10 kU/L class 0 Not Available [facility] ([facility]) [address] [facility], [place], [address], 09/04/2024 10:07:27 09/01/19 25 09/04/2024 FOOD ALLER GY PROFI LE W/REF GURPREET X858-McL codfish <0.10 kU/L class 0 Not Available [facility] ([facility]) [address] [facility], [place], [address], 09/04/2024 10:07:27 09/01/19 25 09/04/2024 FOOD ALLER GY PROFI LE W/REF GURPREET Y116-NbU scallop <0.10 kU/L class 0 Not Available [facility] ([facility]) [address] [facility], [place], [address], 09/04/2024 10:07:27 09/01/19 25 09/04/2024 FOOD ALLER GY PROFI LE W/REF GURPREET J672-RlM wheat <0.10 kU/L class 0 Not Available [facility] ([facility]) [address] [facility], [place], [address], 09/04/2024 10:07:27 09/01/19 25 09/04/2024 FOOD ALLER GY PROFI LE W/REF GURPREET J501-KhJ corn <0.10 kU/L class 0 Not Available [facility] ([facility]) [address] [facility], [place], [address], 09/04/2024 10:07:27 09/01/19 25 09/04/2024 FOOD ALLER GY PROFI LE W/REF GURPREET B052-EgJ sesame seed <0.10 kU/L class 0 Not Available [facility] ([facility]) [address] [place], [address], 09/04/2024 10:07:27 05/07/20 24 09/03/2023 MAMMO , scree dao, digit al, bilat eral No observ ation record ed. [email or web address] [facility] (Med Record) [address], [place], [address], 09/02/2024 15:50:46 05/24/20 24 05/19/2024 MAMMO , diagn ostic , bilat eral No observ ation record ed. [address] (Scheduling) [address], [place], [address], 09/02/2024 15:50:46 05/24/20 24 05/19/2024 US, breas t, bilat eral, compl ete No observ ation record ed. [address] (Scheduling) [address], [place], [address], 09/02/2024 15:50:46 05/24/20 24 05/19/2024 US, breas t, bilat eral, compl ete No observ ation record ed. [address] (Scheduling) [address], [place], [address], 09/02/2024 15:50:45 05/28/20 24 05/19/2024 MAMMO , diagn ostic , bilat eral No observ ation record ed. [address] (Scheduling) [address], [place], [address], 09/02/2024 15:50:45 09/02/19 XR, shoul campos No observ ation record ed. [address], [address], 09/02/2024 15:55:30 Result Notes None recorded. Problems Name Problem SNOMED Code Status Onset Date Resolution Date Notes Provider Name and Address Organization Details Recorded Time Fibrocys tic change of right breast 29700705059 844192 Active 2023 MARCIO Mendiola [address] [place] [address], [address] , [place] [facility] 13:32:44 Mammogra phic mass of bilatera l breasts 97011693425 466123 Completed 202309/02/2024 MARCIO Mendiola [address] [place] [address], [address] , [employer] 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 13:32:47 Constipa tion 70910622 Active 2024 MARCIO Mendiola [address] [place] [address], [address] [place] [address] , [employer] 13:32:39 Dysphagi a 21232627 Active 2024 MARCIO Mendiola [address] [place] [address], [address] [place] [address] , [employer] [facility] 13:32:42 Pain of right shoulder joint 48059301626 945794 Active 2024 MARCIO Mendiola [address] [place] [address], [address] [place] [address] , [employer] [facility] 17:52:08 Otalgia of right ear 3879331428 Completed 202012/14/2021 Not Available [facility] 2 21:08:29 Acute sinusiti s 14829418 Completed 202112/14/2021 Problem Code: J01.90; Problem Code Type: ICD-10; Not Available [facility] 2 21:08:29 Acute respirat ory infectio ns 240693936 Completed 202012/14/2021 Problem Code: J22; Problem Code Type: ICD-10; Not Available [facility] 2 21:08:29 Low back pain 869046010 Completed 202112/14/2021 Problem Code: M54.5; Problem Code Type: ICD-10; Not Available [facility] 21:08:29 Pain in thoracic spine 242296690 Completed 202112/14/2021 Problem Code: M54.6; Problem Code Type: ICD-10; Not Available [facility] 21:08:29 Influenz a vaccine needed 68304630753 06 Completed 202012/14/2021 Problem Code: Z23; Problem Code Type: ICD-10; Not Available [facility] 21:08:30 Influenz a vaccine needed 61449122026 06 Completed 202012/14/2021 Problem Code: Z23; Problem Code Type: ICD-10; Not Available [facility] 21:08:30 Problem Notes None recorded. Procedures Surgical History Date Name Laterality Status Provider Name and Address Organization Details Recorded Time 05/19/20 24 Most Recent Mammogram completed [employer] 08/31/2024 17:41:46 04/05/20 21 arthroscopy completed Not Available [facility] 04/09/2022 22:56:20 04/05/20 21 cholecystectomy completed Not Available [facility] 04/09/2022 22:56:20 04/05/20 21 total hysterectomy completed Not Available [facility] 04/09/2022 22:56:22 11/08/19 20 Date of Last Pap Smear completed [facility] 05/07/2024 15:26:13 Breast Biopsy completed [employer] 08/31/2024 17:31:04 Colposcopy completed [facility] [employer] 08/31/2024 17:31:04 Hysterectomy [facility] 08/31/2024 17:31:04 Tubal Ligation completed [employer] 08/31/2024 17:31:04 Breast Implants completed [employer] 08/31/2024 17:31:04 Endometrial Ablation completed [employer] 08/31/2024 17:31:04 Gallbladder Surgery completed [facility] 08/31/2024 17:31:04 Partial Hysterectomy completed [employer] [employer] 08/31/2024 17:31:04 Imaging Results None recorded. Procedure [...] Updated DateTime 5 160.02 cm 24 kg/m2 41972.4 1 g 60 /min 98 % 98 % 98.3 [degF] 138 mm[Hg] 77 mm[Hg] [facility] [employer] 5 17:36:34 Date Recorded Body height Body mass index (BMI) Body weight Body temperature Heart rate Oxygen saturation Oxygen saturation in Arterial blood by Pulse oximetry Systolic blood pressure Diastolic blood pressure Provider Name and Address Organization Details Last Updated DateTime 4 160.02 cm 21.6 kg/m2 60747.2 7 g 98.5 [degF] 80 /min 99 % 99 % 114 mm[Hg] 70 mm[Hg] Abby Gudino [facility] [facility] 4 12:16:55 Date Recorded Body height Body mass index (BMI) Body weight Body temperature Heart rate Oxygen saturation Oxygen saturation in Arterial blood by Pulse oximetry Systolic blood pressure Diastolic blood pressure Provider Name and Address Organization Details Last Updated DateTime 4 160.02 cm 21.7 kg/m2 69738.6 7 g 97.7 [degF] 78 /min 97 % 97 % 116 mm[Hg] 70 mm[Hg] Abby [place] [employer] 4 11:36:38 Date Recorded Body height Body mass index (BMI) Body weight Heart rate Oxygen saturation Oxygen saturation in Arterial blood by Pulse oximetry Systolic blood pressure Diastolic blood pressure Provider Name and Address Organization Details Last Updated DateTime 4 160.02 cm 22.3 kg/m2 82562.6 4 g 62 /min 98 % 98 % 108 mm[Hg] 72 mm[Hg] [facility] [employer] 4 15:24:57 Date Recorded Body height Body mass index (BMI) Body weight Body temperature Heart rate Oxygen saturation Oxygen saturation in Arterial blood by Pulse oximetry Systolic blood pressure Diastolic blood pressure Provider Name and Address Organization Details Last Updated DateTime 3 160.02 cm 22.1 kg/m2 38148.0 5 g 98.8 [degF] 89 /min 98 % 98 % 114 mm[Hg] 74 mm[Hg] Abby [employer] 3 08:10:09 Social History Question Answer Notes LastModified by Organizat ion Details LastModified Time Tobacco Smoking Status Never Smoker SocialHi storyQue stion: 'Tobacco /Alcohol /Supplem ents'; SocialHi storyRes marcus: 'Never Smoker'; Not Available [facility] 04/09/2022 22:56:37 Do You Have An Advance Directive? No Information not available 05/07/2024 Is Your Home Air Conditioned? Yes Information not available 05/07/2024 Are You Blind Or Do You Have Difficulty Seeing? No Information not available 05/07/2024 What Is Your Level Of Caffeine Consumption? Heavy Information not available 08/31/2024 What Type Of Air Analysis Technician Do You Use? None Information not available 08/31/2024 In The 14 Days Before Symptom Onset, Have You Had Close Contact With A Laboratory-petrona urrutia COVID-19 While That Case Was Ill? No [...] available 05/07/2024 Who Is Your Employer? [employer] Information not available 08/31/2024 [...] Do You Have A Medical Power Of Track Greaser? No Information not available 05/07/2024 What Was [...] is your level of alcohol consumption? None [email or web address] Information not available 06/18/2023 Are you currently [...] anxious, or unable to sleep at night)? [id number] Information not available 08/31/2024 Do you have [...] Artery Disease N Gout N Other N Blood Diseases N Kidney Stones N Hyperthyroidism N Breast Cancer N Blood Transfusion N Emergency room visit since last appointm ent. N Hypothyroidism N Lung Disease N Dermatologic Disorders N Depression N COPD N Defects or Inherited Disease N Developmental or Behavioral Disorders N Breast Problem N Difficulty Swallowing N Anesthesia Complications N History of STI N Meniere's disease N Anxiety Disorder Y Muscle, Joint, or Bone Problems N Autoimmune disease N Vision or Eye Problems N Arthritis N Polyps N Infertility N Mental Disorder N Congenital Anomalies N Acid Reflux (GERD) N Cancer N Stroke N Neurologic/Epilepsy N Endometriosis N Bladder or Kidney Problems N High Cholesterol N Liver Disease N Organ Transplant N Psychiatric/Mental Health Condition N Fibromyalgia N Dialysis N Schizophrenia N Headaches N Kidney Disease N Allergies/Hayfever N Heart Problems N Ear or Hearing Problems N Hospitalizations N Learning Disorder N Artificial Joints N Thyroid Problems N GI Problems N Acne N ADD/ADHD N Eating Disorder N Anemia N Constipation N Mental Illness N Ovarian Cancer N Diabetes N Bedwetting N Hepatitis/Liver Disease N Tuberculosis N Eczema N Diverticulitis N Abuse/Domestic Violence N Asthma N Trauma/Violence N Substance Abuse [...] mcg/0.3 mL dose 1 completed Not Available [facility] 04/09/2022 23:41:43 COVID-19, mRNA, LNP-S, PF, 30 mcg/0.3 mL dose 1 completed Not Available [facility] 04/09/2022 23:41:43 Tdap 9 completed [employer] [employer] null, [employer] 05/07/2024 15:24:33 TST-PPD intradermal 5 completed [facility] null, [employer] 05/07/2024 15:24:33 Past Encounters Encounter ID Performer Location Encounter Start Date Encounter Closed Date Diagnosis/Indication Diagnosis SNOMED-CT Code Diagnosis ICD10 Code Diagnosis Note [id number] Dominique Barnett APRN [address] [address] 09/02/2022 08:17:30 09/08/2022 11:16:03 Acute upper respiratory infection 79814871 J06.9 [id number] Dominique Barnett APRN [address] [address] 10/18/2022 09:54:52 10/18/2022 11:43:39 Acute upper respiratory infection 88830824 J06.9 [id number] Dominique Barnett APRN [address] [address] 06/18/2023 09:52:12 06/18/2023 11:36:58 Acute upper respiratory infection 26526035 J06.9 Normal bod y mass index 03307819 Z68.22 [id number] Dominique Barnett APRN [address] [address] 07/10/2023 08:07:10 07/11/2023 10:40:19 Acute upper respiratory infection 49154350 J06.9 Streptococ april sore throat 91501036 J02.0 Body mass index 20-24 - normal 122894192 Z68.22 [id number] Cami Khan APRN [address] [address] 04/09/2024 10:52:30 04/12/2024 13:23:17 Dysuria 63162279 R30.0 pt was just prescribed pyridium on Friday Normal weight 47333335 Z 68.21 [id number] Cami Khan APRN [address] [address] 04/23/2024 11:32:05 04/26/2024 14:21:53 Seasonal allergic rhinitis 738348711 J30.2 Posterior rhinorrhea 758 13568 R09.82 [id number] MARCIO Mendiola [address] [address] 05/07/2024 14:58:36 05/07/2024 16:11:19 Family history of breast cancer 470960371 Z80.3 Adult heal th examination 357025604 Z00.00 Influenza vaccination declined 427386124 Z28.21 Fibrocysti c change of right breast 9455593849 9657125 N60.11 [id number] MARCIO Mendiola [address] [address] 08/31/2024 17:04:43 08/31/2024 18:04:26 Constipation 66077949 K59.00 Dysphagia 10596789 R13.1 0 Pain of ri ght shoulder joint 9015078056 3847763 M25.511 Health Concerns Section Related Observation LastModified by Organization Detai ls LastModified Time None Recorded Concern Status LastModified by Organization Details LastModified Time None Recorded Advance Directives Directive N: Payers Insurance Date Sequence Insurance Name Policy Number Policy Santiago Covered Member ID Santiago Member ID Guarantor Name 10/14/2024 1 UNSPECIFIED REMIT PAYOR Meenu Hale 09/08/2024 1 [facility] [id number] Meenu Hale Notes Date Note Type Note Provider Name and Address Organization Details Recorded Time 07/10/2023 text/html Upper Respirator y SymptomsReported bypatient.Location:[address] [facility]; throat; nasal Quality:dry cough Severity:mild; moderate Duration:symptoms lasting less than 2 weeks Context:sick contact Associated Symptoms:sore throat;malaiseNotes:Pt 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 Dominique Barnett, BATCH RECORDS CLERK [address] [place], [phone], [employer] 07/10/2023 09:24:53 04/09/2024 text/html Lower Urinary Tr act Symptoms (LUTS)Reported bypatient.Location:[facility] Quality:pressure Severity:improving Onset/Timing:Friday Context:abnormal voiding frequency [...] history of kidney stones/calcifications. Cami Khan APRN [address] [place] [address], [id number], [employer] 04/09/2024 12:37:57 04/23/2024 text/html Upper Respirator y SymptomsReported bypatient.Location:[facility]; chest; throat; nasal; ears Quality:productive cough;dry cough Severity:mild; moderate Duration:symptoms lasting less than 2 weeks Onset/Timing:gradual Associated Symptoms:sore throat;headacheNotes:[age] year old female presents with complaint of headache, left ear pain, a cough that is dry but is also productive at times. She denies any sick contacts. Cami Khan APRN [address] [place], [phone], [employer]. 04/23/2024 11:57:21 05/07/2024 text/html Patient presents to [...] Would also like routine labs. MARCIO Mendiola [address] [place] [address], [phone], [employer]. 05/07/2024 16:53:41 08/31/2024 text/html Patient presents for followup. Has difficulty having a regular bowel movement. She tried enemas, stool softeners, laxatives. Tried Linzess. Feels bloated and uncomfortable all the time.Has pain in her right shoulder. Catches with certain activities. Hurts to lay on it.Has difficulty swallowing at times. MARCIO Mendiola [address] [place], [phone], [employer]. 09/02/2024 15:55:14 OBGyn Episode No OBEpisode recorded.
--- OUTSIDE RECORDS SUMMARY | 2025-01-26 23:19 | XMS_ITS | Clinical Summary ---
Author Organization [employer] Address [address] [place] [address] Care Team Providers Care Tractor Mechanic Name Role Phone Unavailable Primary Care Provider [...] Jose J rded Speak language other than Chilean at home Not on file 04/13/2024 Want [...] to complete this topic Insurance SHAHANA RODRIGUEZ [id number] [facility]
[2025-01-26] MEDS: KETOROLAC 30MG/ML VIAL 30 MG IM (23:43)
[2025-01-26] MEDS: ACETAMINOPHEN 500MG TAB 1000 MG PO (23:43)
[2025-01-27 00:30] VITALS: BP 94/65; PULSE 61; PULSE 72; O2SAT 98; O2SAT 99
[2025-01-27 01:07] VITALS: BP 107/89; PULSE 54; RESP 18; TEMP 36.9
== END 2025-01-27 01:06 | disposition home or self-care (01) ==
PROVIDERS: Emergency Provider Emergency Medicine; PCP Physician Assistant
DX: M25.561 Pain in right knee (principal); M25.461 Effusion, right knee; M25.562 Pain in left knee; M79.644 Pain in right finger(s); V49.40XA Driver injured in collision with unspecified motor vehicles in traffic accident, initial encounter; Y92.410 Unspecified street and highway as the place of occurrence of the external cause
CPT/HCPCS: 73562; 73590; 96372; 99284; J1885

== ENCOUNTER 2025-02-15 08:18 | Outpatient (CLI) | payer OTHER, SELFPAY ==
--- NOTE | 2025-02-15 08:21 | XR_ITS ---
FINAL REPORT CLINICAL HISTORY: right knee pain FINDINGS: RIGHT KNEE 3 views of the right knee were obtained. There is no acute fracture or dislocation. Visualized joint spaces are normally aligned. Soft tissues are unremarkable. IMPRESSION: No acute bony abnormality. Reviewed, Interpreted and Dictated by Kiara Garzon MD Transcribed by Marylou Nassar Authenticated and . [facility]
--- OUTSIDE RECORDS SUMMARY | 2025-02-15 08:24 | XMS_ITS | Clinical Summary ---
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 Role Phone Unavailable Primary Care Provider Unavailabl e Social History Tobacco Use Types Packs/Day Years Used Date Smoking Tobacco: Never Assessed Food Insecurity Answer Date Recorded Food run [...] Jose J rded Speak language other than Estonian at home Not on file 04/13/2024 Want help with school or training Not on file 04/13/2024 Substance Use Answer Date Recorded Used [...] 2002 Breast Cancer Screening 2021 COVID-19 VACCINE (2023-2 5 season) 2024 04/27/2021, 04/06/2021 Influenza Vaccine (#1) 2025 DTAP/TDAP/TD VACCINES (2 - T d or Tdap) 05/13/2029 05/13/2019 Pneumococcal Vaccine: 0-49 Years Aged Out No longer eligible b ased on patient's age to complete this topic Insurance [employer] [facility]
--- OUTSIDE RECORDS SUMMARY | 2025-02-15 08:24 | XMS_ITS | Data Portability ---
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 Episode No OBEpisode recorded.
--- OUTSIDE RECORDS SUMMARY | 2025-02-15 08:24 | XMS_ITS | Referral Summary ---
Author Organization [employer] ([place], [place], [place], [place]) Address [address] [place] [address] Care Team Providers Care Top Knitter Name Role Phone Unavailable Primary Care Provider [...] Jose J rded Speak language other than Welsh at home Not on file 04/13/2024 Want [...]
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
== END 2025-02-15 23:59 | disposition home or self-care (01) ==
LOC: RAD 08:19
PROVIDERS: PCP Physician Assistant; Visit Provider Physician Assistant
DX: M25.561 Pain in right knee (principal)
CPT/HCPCS: 73562

== ENCOUNTER 2025-04-25 16:29 | Outpatient (CLI) | payer OTHER, SELFPAY ==
--- OUTSIDE RECORDS SUMMARY | 2025-04-25 16:32 | XMS_ITS | Clinical Summary ---
[facility] Address [address] [place] [address] Care Team Providers Care Recruiting Assistant Name Role Phone Lizette Leon Primary Care Provider [phone] Allergies No known active allergies Medications No known medications Family History Medical History Relation Name Comments No Known Problems Father Relation Name Status Comments Father Alive Mother Alive Social History Tobacco Use Types Packs/Day Years Used Date Smoking Tobacco: Never Abuse Screen Answer Date Recorded Unsafe at Home or Work/School Not on file Feels Threatened by Someone? Not on file 06/2023 Does Anyone Keep You from Co ntacting Others or Doint Things Outside the Home? Not on file 05/14/2023 Physical Sign of Abuse Present Not on file 1 Housing Stability Answer Date Recorded Current Living Arrangements Not on file 05/04 Potentially Unsafe Housing Conditions Not on nataly e 05/14/2023 Family and Community Support Answer Prateek e Recorded Help with Day-to-Day Activities Not on file 05/14/2023 Lonely or Isolated Not on file 05/14/2023 Employment Answer Date Recorded Do you want help finding or keeping work or a lacey b? Not on file 05/14/2023 Disabilities Answer Date Recorded Concentrating, Remembering, or Making Decisions Difficulty Not on file 05/14/2023 Doing Errands Independently Difficulty Not on fi le 05/14/2023 Education Answer Date Recorded Help with school or training? Not on file Preferred Language Not on file 05/14/2023 Comments No Sex and Gender Information Value Date Recorded Sex Assigned at Not on file Legal Sex Female 10:11 AM EST Gender Identity Not on file Sexual Orientation Not on file Last Filed Vital Signs Vital Sign Reading Time Taken Comments Blood Pressure 118/76 09/16/2016 10:19 AM EST Pulse 64 09/16/2016 10:33 AM EST Temperature 36.6 C (97.9 F) 09/16/2016 10:19 AM EST Respiratory Rate 15 09/16/2016 10:19 AM EST Oxygen Saturation 99% 09/16/2016 10:19 AM EST Inhaled Oxygen Concentration - - Weight 66 kg (145 lb 9.6 oz) 09/16/2016 10:19 AM EST Height 160 cm (5' 3 ) 09/16/2016 10:19 AM EST Body Mass Index 25.79 09/16/2016 10:19 AM EST Plan of Treatment Health Maintenance Due Date Last Done Comments ANNUAL PHYSICAL 1981 Annual Gynecologic Pelvic an d Breast Exam 1981 HEPATITIS C SCREENING 1981 TDAP/TD VACCINES (1 - Tdap) 2000 MAMMOGRAM 2021 INFLUENZA VACCINE 03/04/2025 Pneumococcal Vaccine 0-49 Aged Out No longer eligible based on patient's age to complete this topic Insurance Care Teams Recruiting Assistant Relationship Specialty Start Date End Date Lizette Leon PA PCP - General Physician Biometrics Analyst 09/16/16
--- OUTSIDE RECORDS SUMMARY | 2025-04-25 16:32 | XMS_ITS | Clinical Summary ---
Author Organization Healthcare Address [address] [place] [address] Care Team Providers Care Personal Lines Underwriter Name Role Phone Lizette Leon Primary Care Provider [phone] Family History Medical History Relation Name Comments [...] of Treatment Not on file Care Teams Personal Lines Underwriter Relationship Specialty Start Date End Date Liztete Leon PA [address] [place] [address] PCP - General 12/15/20
--- NOTE | 2025-04-25 16:33 | XR_ITS ---
PROCEDURE INFORMATION: Exam: XR Left Hand Exam date and time: 04/25/2025 4:34 PM Age: 44 years old Clinical indication: Pain; Hand; Left; Additional info: Left ring finger pain TECHNIQUE: Imaging protocol: Radiologic exam of the left hand. Views: 3 or more views. COMPARISON: No relevant prior studies available. FINDINGS: Bones/joints: No acute fracture or malalignment. No significant arthritic change. No bony erosion or destruction. Soft tissues: No focal or asymmetric area of soft tissue swelling. No opaque foreign body. IMPRESSION: Unremarkable three views of the left hand. No acute findings.
== END 2025-04-25 23:59 | disposition home or self-care (01) ==
LOC: RAD 16:30
PROVIDERS: PCP Physician Assistant; Visit Provider Physician Assistant
DX: M79.645 Pain in left finger(s) (principal); M79.642 Pain in left hand
CPT/HCPCS: 73130

== ENCOUNTER 2025-05-30 15:30 | Outpatient (RCR) | payer OTHER, SELFPAY | END 2025-05-30 23:59 | disposition home or self-care (01) | LOC: PT.CARL 15:30 | PROVIDERS: Visit Provider Physician Assistant | DX: M25.561 Pain in right knee (principal) | CPT/HCPCS: 97110; 97161; 97530 ==

== ENCOUNTER 2025-06-06 14:57 | Outpatient (RCR) | payer OTHER, SELFPAY | END 2025-06-06 23:59 | disposition home or self-care (01) | LOC: PT.CARL 14:57 | PROVIDERS: Visit Provider Physician Assistant | DX: M25.561 Pain in right knee (principal); M25.361 Other instability, right knee | CPT/HCPCS: 97110 ==

== ENCOUNTER 2025-06-10 16:00 | Outpatient (CLI) | payer OTHER, SELFPAY ==
--- OUTSIDE RECORDS SUMMARY | 2025-06-10 16:02 | XMS_ITS | Clinical Summary ---
Author Organization Healthcare Address [address] [id number] Care Team Providers Care Surveillance Operator Name Role Phone Lizette Leon Primary Care Provider [phone] Family History Medical History Relation Name Comments [...] of Treatment Not on file Care Teams Surveillance Operator Relationship Specialty Start Date End Date Lizette Leon PA [address] [place] [address] PCP - General 12/15/20
--- OUTSIDE RECORDS SUMMARY | 2025-06-10 16:02 | XMS_ITS | Data Portability ---
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 Plan of Treatment Reminders Order Date Submit Date Provider Last Modified By Organization Details Last Modified Time Details Appointments None recorded. Lab rapid flu (A+B) 2024 025 [facility], [address] [place], [address], 5 15:15:23 rapid SARS CoV 2 Ag, QL, IA, upper respiratory specimen 2024 025 [facility], [address] [place], [address], 5 15:15:13 rapid strep group A, throat 2024 025 [facility], [address] [place], [address], 5 15:01:30 food allergen panel, serum 2024 025 [place] [address] [facility], [address] [place] [address], [place], [address], 5 11:01:48 food allergen panel, serum 2024 025 ROBB [facility] [address] [place], [address], 5 10:07:27 CBC w/ auto diff 2023 024 [email or web address] [facility] [address] [place], [address], 4 16:23:03 CMP, serum or plasma 2023 024 [email or web address] [facility] [address] [place], [address], 4 16:23:04 TSH, ultra-sensi tive, serum 2023 024 [facility] [address] [place], [address], 4 16:23:04 vitamin D, 25-hydroxy, total, serum 2023 024 [email or web address] [facility] [address] [place], [address], 4 16:23:04 HIV 1 + 2, meaningful use set 2023 024 [facility] [address] [place], [address], 4 16:23:04 Hepatitis C IgG Ab, qual, serum 2023 024 [facility] [address] [place], [address], 4 16:23:04 Referral hand surgeon referral 2024 025 ROBB BUCKLEY, [address], [place], [address], 5 15:48:20 gastroenter ologist referral - first available appt 2024 ROBB [facility] [employer], [address], [place], [place], [address], 5 10:37:28 Procedures None recorded. Surgeries None recorded. Imaging XR, shoulder 2024 [facility], [address] [place] [address], [address], 5 09:55:10 US, breast, bilateral, complete - same day as the mammogram 2023 024 [facility] (Scheduling), [address], [place], [place], [address], 4 11:32:51 MAMMO, diagnostic, bilateral - h/o breast mass - 6 month f/u 2023 024 [facility] (Scheduling), [address], [place], [place], [address], 4 11:32:03 Medication Orders Pristiq 50 mg tablet,exte nded release 2024 025 [facility], [address] [place] [address], [address], 5 12:26:22 prednisone 20 mg tablet 2024 025 [facility], [address] [place] [address], [address], 5 05:01:14 ondansetron 8 mg disintegrat ing tablet 2024 025 [facility], [address] [place] [address], [address], 5 16:00:46 Trulance 3 mg tablet 2024 025 [facility], [address] [facility], [place], [address], 09:13:42 Patient TargetsNo targets recorded. Patient Instructions Encounter Date Encounter Id Patient Instructions Last Modified By Organization Details Last Modified Time 08/31/2024 [id number] learning about swallowing problems Not available 08/31/2024 17:51:27 constipation: care instructions [email or web address] Not available 08/31/2024 17:48:46 01/28/2025 [id number] nausea and vomiting: care instructions [email or web address] Not available 01/28/2025 09:51:20 Concussion (Mild Traumatic Brain Injury): Care Instructions [email or web address] Not available 01/28/2025 10:54:50 whiplash: care instructions Not available 01/28/2025 10:54:50 03/29/2025 [id number] sore throat: car e instructions [email or web address] Not available 03/29/2025 14:50:05 04/18/2025 [id number] post-traumatic stress disorder (PTSD): care instructions [email or web address] Not available 04/18/2025 16:02:01 Reason for Referral Desk Representative Referral for Dysphagia first available appt Referring Physician: [facility], Encounter Date: 08/31/2024 Hand Surgeon Referral for Na il problem Referring Physician: Family [facility], Encounter Date: 04/18/2025 Results Created Date Observation Date Name Description Value Unit Range Abnormal Flag Note LastModifiedBy Organization Detail LastModifiedTime 04/09/2004/09/2024 urina lysis , dipst ick Leukocytes Trace Not Available [address], [address], 04/09/2024 12:18:12 04/09/20 24 04/09/2024 urina lysis , dipst ick Nitrite negati ve Not Available [address], [address], 04/09/2024 12:18:12 04/09/20 24 04/09/2024 urina lysis , dipst ick Urobilinogen .2 Not Available [address], [place], [address], 04/09/2024 12:18:12 04/09/20 24 04/09/2024 urina lysis , dipst ick Protein Negati ve Not Available [address], [place], [address], 04/09/2024 12:18:12 04/09/20 24 04/09/2024 urina lysis , dipst ick pH 5.0 Not Available [address], [place], [address], 04/09/2024 12:18:12 04/09/2004/09/2024 urina lysis , dipst ick Blood Non-He molyze d: Trace Not Available [address], [place], [address], 04/09/2024 12:18:12 04/09/2004/09/2024 urina lysis , dipst ick Specific [place] 1.005 Not Available [address], [place], [address], 04/09/2024 12:18:12 04/09/20 24 04/09/2024 urina lysis , dipst ick Ketone Trace Not Available [address], [place], [address], 04/09/2024 12:18:12 04/09/2004/09/2024 urina lysis , dipst ick Bilirubin Negati ve Not Available [address], [place], [address], 04/09/2024 12:18:12 04/09/20 24 04/09/2024 urina lysis , dipst ick Glucose Negati ve Not Available [address], [place], [address], 04/09/2024 12:18:12 04/09/20 24 04/09/2024 urina lysis , dipst ick Appearance Clear Not Available [address], [place], [address], 04/09/2024 12:18:12 04/09/20 24 04/09/2024 urina lysis , dipst ick Color Yellow Not Available [address], [place], [address], 04/09/2024 12:18:12 04/23/20 24 04/23/2024 rapid SARS CoV 2 Ag, QL, IA, upper respi rator y speci men SARS CoV Ag negati ve Not Available [address], [place], [address], 04/23/2024 11:37:29 04/23/20 24 04/23/2024 rapid flu (A+B) Flu A negati ve Not Available [address], [place], [address], 04/23/2024 11:37:24 04/23/20 24 04/23/2024 rapid flu (A+B) Flu B negati ve Not Available [address], [place], [address], 04/23/2024 11:37:24 04/23/20 24 04/23/2024 rapid strep group A, throa t Strep negati ve Not Available [address], [place], [address], 04/23/2024 11:37:19 09/01/19 25 09/01/2024 FOOD ALLER GY PROFI LE U487-QmA egg white COMMEN T kU/L Dupli dawna proce dure order ed. Not Available [facility] ([facility]) [address] [facility], [place], [address], 09/04/2024 10:07:27 09/01/19 25 09/01/2024 FOOD ALLER GY PROFI LE G309-WyP milk COMMEN T kU/L Dupli dawna proce dure order ed. Not Available [facility] ([facility]) [address] [facility], [place], [address], 09/04/2024 10:07:27 09/01/19 25 09/01/2024 FOOD ALLER [...] >100. 00 Very High Not Available [facility] ([facility]) [address] [facility], [place], [address], 09/04/2024 10:07:27 09/01/19 25 09/04/2024 FOOD ALLER GY PROFI LE W/REF GURPREET H808-PkU egg white <0.10 kU/L class 0 Not Available [facility] ([facility]) [address] [place], [address], 09/04/2024 10:07:27 09/01/19 25 09/04/2024 FOOD ALLER GY PROFI LE W/REF GURPREET Q429-QrA peanut <0.10 kU/L class 0 Not Available [facility] ([facility]) [address] [facility], [place], [address], 09/04/2024 10:07:27 09/01/19 25 09/04/2024 FOOD ALLER GY PROFI LE W/REF GURPREET L407-HtR soybean <0.10 kU/L class 0 Not Available [facility] ([facility]) [address] [facility], [place], [address], 09/04/2024 10:07:27 09/01/19 25 09/04/2024 FOOD ALLER GY PROFI LE W/REF GURPREET Z872-LaB milk <0.10 kU/L class 0 Not Available [facility] ([facility]) [address] [place], [address], 09/04/2024 10:07:27 09/01/19 25 09/04/2024 FOOD ALLER GY PROFI LE W/REF GURPREET X217-JkA clam <0.10 kU/L class 0 Not Available [facility] ([facility]) [address] [place], [address], 09/04/2024 10:07:27 09/01/19 25 09/04/2024 FOOD ALLER GY PROFI LE W/REF GURPREET F514-TqH shrimp <0.10 kU/L class 0 Not Available [facility] ([facility]) [address] [place], [address], 09/04/2024 10:07:27 09/01/19 25 09/04/2024 FOOD ALLER GY PROFI LE W/REF GURPREET T688-WkJ walnut <0.10 kU/L class 0 Not Available [facility] ([facility]) [address] [place], [address], 09/04/2024 10:07:27 09/01/19 25 09/04/2024 FOOD ALLER GY PROFI LE W/REF GURPREET J341-YzB codfish <0.10 kU/L class 0 Not Available [facility] ([facility]) [address] [facility], [place], [address], 09/04/2024 10:07:27 09/01/19 25 09/04/2024 FOOD ALLER GY PROFI LE W/REF GURPREET W259-UqW scallop <0.10 kU/L class 0 Not Available [facility] ([facility]) [address] [facility], [place], [address], 09/04/2024 10:07:27 09/01/19 25 09/04/2024 FOOD ALLER GY PROFI LE W/REF GURPREET Y520-QqV wheat <0.10 kU/L class 0 Not Available [facility] ([facility]) [address] [facility], [place], [address], 09/04/2024 10:07:27 09/01/19 25 09/04/2024 FOOD ALLER GY PROFI LE W/REF GURPREET Z776-OsM corn <0.10 kU/L class 0 Not Available [facility] ([facility]) [address] [facility], [place], [address], 09/04/2024 10:07:27 09/01/19 25 09/04/2024 FOOD ALLER GY PROFI LE W/REF GURPREET P578-ThW sesame seed <0.10 kU/L class 0 Not Available [facility] ([facility]) [address] [facility], [place], [address], 09/04/2024 10:07:27 03/29/20 25 03/29/2025 rapid SARS CoV 2 Ag, QL, IA, upper respi rator y speci men SARS CoV Ag negati ve Not Available [facility] [address] [place], [address], 03/29/2025 14:49:39 03/29/20 25 03/29/2025 rapid flu (A+B) Flu A negati ve Not Available [facility] [address] [place], [address], 03/29/2025 14:49:32 03/29/20 25 03/29/2025 rapid flu (A+B) Flu B negati ve Not Available [facility] [address] [facility], [place], [address], 03/29/2025 14:49:32 03/29/20 25 03/29/2025 rapid strep group A, throa t Strep negati ve Not Available [facility] [address] [facility], [place], [address], 03/29/2025 14:49:47 05/07/20 24 09/03/2023 MAMMO , scree dao, digit al, bilat eral No observ ation record ed. [address] (Med Record) [address], [place], [address], 09/02/2024 15:50:46 05/24/20 24 05/19/2024 MAMMO , diagn ostic , bilat eral No observ ation record ed. [address] (Scheduling) [address], [place], [address], 09/02/2024 15:50:46 05/24/20 24 05/19/2024 US, breas t, bilat eral, compl ete No observ ation record ed. [address] (Scheduling) [address], [place], [address], 09/02/2024 15:50:46 05/24/20 24 05/19/2024 US, breas t, bilat eral, compl ete No observ ation record ed. [address] (Scheduling) [address], [place], [address], 09/02/2024 15:50:45 05/28/2005/19/2024 MAMMO , diagn ostic , bilat eral No observ ation record ed. [email or web address] [facility] (Scheduling) [address], [place], [address], 09/02/2024 15:50:45 09/02/19 XR, shoul campos No observ ation record ed. [email or web address] [address], [place], [address], 09/02/2024 15:55:30 01/29/20 25 01/21/2025 MAMMO , scree dao, bilat eral No observ ation record ed. [email or web address] [facility] (Scheduling) [address], [place], [address], 02/02/2025 09:22:42 04/25/20 25 04/25/2025 XR, hand No observ ation record ed. [facility] [address] [place], [place], [address], 04/26/2025 10:43:46 Result Notes None recorded. Problems Name Problem SNOMED Code Status Onset Date Resolution Date Notes Provider Name and Address Organization Details Recorded Time Acute respirat ory infectio ns 335384467 Completed 202012/14/2021 Problem Code: J22; Problem Code Type: ICD-10; Not Available [facility] 2 21:08:29 Influenz a vaccine needed 50164371658 06 Completed 202012/14/2021 Problem Code: Z23; Problem Code Type: ICD-10; Not Available [facility] 21:08:30 Influenz a vaccine needed 31512447645 Completed 202012/14/2021 Problem Code: Z23; Problem Code Type: ICD-10; Not Available [facility] 2 21:08:30 Otalgia of right ear 6377789979 Completed 202012/14/2021 Not Available [facility] 2 21:08:29 Low back pain 796648824 Completed 202112/14/2021 Problem Code: M54.5; Problem Code Type: ICD-10; Not Available [facility] 21:08:29 Pain in thoracic spine 921343833 Completed 202112/14/2021 Problem Code: M54.6; Problem Code Type: ICD-10; Not Available [facility] 21:08:29 Acute sinusiti s 54181385 Completed 202112/14/2021 Problem Code: J01.90; Problem Code Type: ICD-10; Not Available [facility] 21:08:29 Fibrocys tic change of right breast 01419908041 592311 Active 2023 MARCIO Mendiola [address] [place] [address], [address] [place] [address] , [employer] 13:32:44 Mammogra phic mass of bilatera l breasts 00601880942 727881 Completed 202309/02/2024 MARCIO Mendiola [address] [place] [address], [address] [place] [address] , [employer] 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 13:32:47 Constipa tion 71829273 Active 2024 MARCIO Mendiola [address] [place] [address], [address] [place] [address] , [employer] 13:32:39 Dysphagi a 75374466 Active 2024 MARCIO Mendiola [address] [place] [address], [address] [place] [address] , [employer] 13:32:42 Pain of right shoulder joint 45307215169 919415 Active 2024 MARCIO Mendiola [address] [place] [address], [address] [place] [address] , [employer] 17:52:08 Nausea 316777028 Active 2024 MARCIO Mendiola [address] [place] [address], [address] [place] [address] , [employer] 09:50:58 Whiplash injury to neck 10403886 Active 2024 MARCIO Mendiola [address] [place] [address], [address] [place] [address] , [employer] 10:54:04 Concussi on with no loss of consciou sness 45853391 Active 2024 MARCIO Mendiola [address] [place] [address], [address] [place] [address] , [employer] 10:54:11 Laryngit is 99559439 Active 2024 MARCIO Mendiola [address] [place] [address], [address] [place] [address] , [employer] 16:11:41 Temporom andibula r joint disorder 76650604 Active 2024 MARCIO Mendiola [address] [place] [address], [address] [place] [address] , [employer] 14:40:19 Migraine with aura 1638216 Active 2024 MARCIO Mendiola [address] [place] [address], [address] [place] [address] , [employer] 14:40:29 Recurren t depressi on 677886333 Active 2024 MARCIO Mendiola [address] [place] [address], [address] [place] [address] , [employer] 16:01:13 Post-tra umatic stress disorder 13966570 Active 2024 MARCIO Mendiola [address] [place] [address], [address] , [employer] 09/15/202 5 16:01:20 Nail problem 455659251 Active 2024 MARCIO Mendiola [address] [place] [address], [address] , [employer] 16:01:33 Problem Notes None recorded. Procedures Surgical History Date Name Laterality Status Provider Name and Address Organization Details Recorded Time 05/19/20 24 Most Recent Mammogram completed [employer] 08/31/2024 17:41:46 04/05/20 21 arthroscopy completed Not Available [facility] 04/09/2022 22:56:20 04/05/20 21 cholecystectomy completed Not Available [facility] 04/09/2022 22:56:20 04/05/20 21 total hysterectomy completed Not Available [facility] 04/09/2022 22:56:22 11/08/19 20 Date of Last Pap Smear completed [employer] 05/07/2024 15:26:13 Breast Biopsy completed [employer] 08/31/2024 17:31:04 Colposcopy completed [employer] [facility] [employer] 08/31/2024 17:31:04 Hysterectomy [facility]2024 17:31:04 Tubal Ligation completed [employer] 08/31/2024 17:31:04 Breast Implants completed [employer] 08/31/2024 17:31:04 Endometrial Ablation completed [employer] 08/31/2024 17:31:04 Gallbladder Surgery completed [employer] 08/31/2024 17:31:04 Partial Hysterectomy completed [employer] 08/31/2024 17:31:04 Imaging Results None recorded. [...] MOUTH EVERY 6 HOURS NEEDED FOR PAIN 03/29 completed Not Available Not Available Not Available [...] completed Not Available Not Available Not Available prednisone 20 mg tablet Take 1 tablet twice a day by oral route for 5 days. 04/10 completed Not Available Not Available Not Available [...] times daily as needed FOR 10 DAYS 04/18 completed Not Available Not Available Not Available [...] 4 mg tablets in a dose pack take as directed FOR 6 DAYS 04/18 completed Not Available Not Available Not Available [...] completed Not Available Not Available Not Available desvenlafax ine succinate ER 50 mg tablet,exte nded release 24 hr TAKE 1 TABLET BY MOUTH EVERY DAY FOR 30 DAYS active Not Available Not Available No t Available [employer]G 236 gram-22.74 gram-6.74 gram-5.86 gram [...] completed Not Available Not Available Not Available Ubrelvy 100 mg tablet Take 1 tablet by mouth every day for 30 days. active Not Available Not Available No t Available Vitals Date Recorded Body height Body mass index (BMI) Body weight Heart rate Oxygen saturation Oxygen saturation in Arterial blood by Pulse oximetry Body temperature Systolic And Diastolic Provider Name and Address Organization Details Last Updated DateTime 5 160.02 cm 24 kg/m2 85468.4 1 g 60 /min 98 % 98 % 98.3 [degF] 138/77 mm[Hg] [facility] [employer] 5 17:36:34 Date Recorded Body height Body mass index (BMI) Body weight Heart rate Oxygen saturation Oxygen saturation in Arterial blood by Pulse oximetry Body temperature Systolic And Diastolic Provider Name and Address Organization Details Last Updated DateTime 5 160.02 cm 22.1 kg/m2 76314.0 5 g 60 /min 99 % 99 % 98.2 [degF] 136/81 mm[Hg] Elizabeth Calvo [employer] 5 09:06:44 Date Recorded Body height Body mass index (BMI) Body weight Oxygen saturation Oxygen saturation in Arterial blood by Pulse oximetry Heart rate Body temperature Systolic And Diastolic Provider Name and Address Organization Details Last Updated DateTime 5 160.02 cm 20.9 kg/m2 57722.9 g 98 % 98 % 58 /min 98.1 [degF] 110/76 mm[Hg] [employer] 5 14:56:07 Date Recorded Body height Body mass index (BMI) Body weight Oxygen saturation Oxygen saturation in Arterial blood by Pulse oximetry Heart rate Body temperature Systolic And Diastolic Provider Name and Address Organization Details Last Updated DateTime 5 160.02 cm 21.7 kg/m2 68374.4 2 g 98 % 98 % 64 /min 98.1 [degF] 104/72 mm[Hg] [employer] 5 15:43:16 Date Recorded Body height Body mass index (BMI) Body weight Heart rate Oxygen saturation Oxygen saturation in Arterial blood by Pulse oximetry Systolic And Diastolic Provider Name and Address Organization Details Last Updated DateTime 4 160.02 cm 22.3 kg/m2 79194.6 4 g 62 /min 98 % 98 % 108/72 mm[Hg] [employer] 4 15:24:57 Social History Question Answer Notes LastModified by Organizat ion Details LastModified Time Tobacco Smoking Status Never Smoker Ct Angelito morrell: 'Tobacco /Alcohol /Supplem ents'; [facility] Oleksandr velazquez: 'Never Smoker'; Not Available [facility] 04/09/2022 22:56:37 Do You Have An Advance Directive? No Information not available 05/07/2024 Is Your Home Air Conditioned? Yes Information not available 05/07/2024 Are You Blind Or Do You Have Difficulty Seeing? No Information not available 05/07/2024 What Is Your Level Of Caffeine Consumption? Heavy Information not available 08/31/2024 What Type Of Premium Card Cancellation Clerk Do You Use? None Information not available [...] available 05/07/2024 Who Is Your Employer? [employer] Information not available 08/31/2024 [...] Do You Have A Medical Power Of International Representative? No Information not available 05/07/2024 What Was The Date Of Your Most Recent Tobacco Screening? 04/18/2025 Information not available 04/18/2025 Do You Have Any Pets? Yes Information [...] Functional Status Question Answer Note LastModified by [employer] ion Details LastModified Time Do you use any illicit or recreational drugs? No Information not available 08/31/2024 Do you or have you ever used any other forms of tobacco or nicotine? No Information not available 05/07/2024 What is your level of alcohol consumption? None [email or web address] Information not available 06/18/2023 Are you currently employed? Yes Information not available 08/31/2024 Do you have transportation difficulties? No Information not available 05/07/2024 Are you able to walk independently without assistance or assistive devices? [employer] Information not available 05/07/2024 Do you have difficulty doing errands alone? No Information not available 05/07/2024 Are you able to care for yourself independently? Yes Information not available 05/07/2024 Do you have difficulty dressing, bathing, grooming, or toileting? No Information not available 05/07/2024 What is your exercise level? Moderate Information not available 08/31/2024 Mental Status Question Answer Note LastModified by Organizat ion Details LastModified Time Do you feel stressed (tense, restless, nervous, or anxious, or unable to sleep at night)? [id number] Information not available 08/31/2024 Do you have [...] Lung Disease N COPD N Depression N Hypothyroidism N Dermatologic Disorders N Defects or Inherited Disease N Developmental [...] mcg/0.3 mL dose 1 completed Not Available [facility] 04/09/2022 23:41:43 COVID-19, mRNA, LNP-S, PF, 30 mcg/0.3 mL dose 1 completed Not Available [facility] 04/09/2022 23:41:43 Tdap 9 completed Jyoti Vice null, [employer] 05/07/2024 15:24:33 TST-PPD intradermal 5 completed Jyoti Vice null, [employer] 05/07/2024 15:24:33 Past Encounters Encounter ID Performer Location Encounter Start Date Encounter Closed Date Diagnosis/Indication Diagnosis SNOMED-CT Code Diagnosis ICD10 Code Diagnosis IMO Codes Diagnosis Note [id number] Dominique Barnett APRN [address] [address] 09/02/2022 08:17:30 09/08/2022 11:16:03 Acute upper respiratory infection 65470615 J06.9 [id number] Dominique Barnett APRN [address] [address] 10/18/2022 09:54:52 10/18/2022 11:43:39 Acute upper respiratory infection 46649619 J06.9 [id number] Dominique Barnett APRN [address] [address] 06/18/2023 09:52:12 06/18/2023 11:36:58 Acute upper respiratory infection 53117453 J06.9 Normal bod y mass index 84645299 Z68.22 [id number] Dominique Barnett APRN [place] [id number] 07/10/2023 08:07:10 07/11/2023 10:40:19 Acute upper respiratory infection 69038562 J06.9 Streptococ april sore throat 82025493 J02.0 Body mass index 20-24 - normal 264310971 Z68.22 [id number] [place] [address] 04/09/2024 10:52:30 04/12/2024 13:23:17 Dysuria 94543717 R30.0 pt was just prescribed pyridium on Friday Normal weight 55825927 Z 68.21 [id number] [place] [address] 04/23/2024 11:32:05 04/26/2024 14:21:53 Seasonal allergic rhinitis 219775448 J30.2 Posterior rhinorrhea 758 [address]375 R09.82 [id number] MARCIO Mendiola [address] [address] 05/07/2024 14:58:36 05/07/2024 16:11:19 Family history of breast cancer 591763842 Z80.3 Adult heal th examination 026631775 Z00.00 Influenza vaccination declined 150608726 Z28.21 Fibrocysti c change of right breast [id number] 0455253 N60.11 [id number] MARCIO Mendiola [address] [address] 08/31/2024 17:04:43 08/31/2024 18:04:26 Constipation 84119546 K59.00 Dysphagia 72043923 R13.1 0 Pain of ri ght shoulder joint 7077301069 1875970 M25.450 [id number] MARCIO Mendiola [address] [address] 01/28/2025 08:46:40 01/28/2025 09:27:57 Nausea 469949853 R11.0 41058 Whiplash i njury to neck 00564913 S13.4XXA 4876214 Concussion with no loss of consciousness 81227468 S06.0X0A 334775 Ubrelvy samples given [id number] MARCIO Mendiola [facility] [address] [place] [address] 03/29/2025 14:35:20 03/29/2025 15:13:14 Sore throat 274922832 J02.9 84833 Laryngitis 45910996 J04. 0 40738 [id number] MARCIO Mendiola [facility] [address] [place] [address] 04/18/2025 15:23:13 04/18/2025 16:00:14 Recurrent depression 031506627 F33.9 50688 Post-traum atic stress disorder 55689491 F43.10 105401 Nail problem 523973352 L 60.9 809438 Health Concerns Section Related Observation LastModified by Organization Detai ls LastModified Time None Recorded Concern Status LastModified by Organization Details LastModified Time None Recorded Advance Directives Directive N: Payers Insurance Date Sequence Insurance Name Policy Number Policy Santiago Covered Member ID Santiago Member ID Guarantor Name 10/14/2024 1 UNSPECIFIED REMIT PAYOR Meenu Hale 04/15/2025 1 [facility] (MEDICAID HMO) Meenu Hale [id number] Meenu Hale 02/01/2025 [facility] [id number] Meenu Hale Notes Date Note Type Note Provider Name and Address Organization Details Recorded Time 05/07/2024 text/html Patient presents to establish care. Due for mammogram/breast US. Had cyst biopsied last September - due for 6 month f/u though biopsy was benign. Sister from triple positive breast [place]. She has history of breast implants. Thought she felt a knot in her left breast a few weeks ago but it is gone now. Would also like routine labs. MARCIO Mendiola [address] [place] [address], [phone], [facility] [employer] 05/07/2024 16:53:41 08/31/2024 text/html Patient presents for followup. Has difficulty having a regular bowel movement. She tried enemas, stool softeners, laxatives. Tried Linzess. Feels bloated and uncomfortable all the

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
== END 2025-06-10 23:59 | disposition home or self-care (01) ==
LOC: RAD 16:01
PROVIDERS: PCP Physician Assistant; Visit Provider Physician Assistant
DX: S83.411A Sprain of medial collateral ligament of right knee, initial encounter (principal); S80.01XA Contusion of right knee, initial encounter; M76.51 Patellar tendinitis, right knee; V89.2XXA Person injured in unspecified motor-vehicle accident, traffic, initial encounter
CPT/HCPCS: 73721

== ENCOUNTER 2025-07-15 14:46 | Outpatient (CLI) | payer OTHER, SELFPAY ==
--- NOTE | 2025-07-15 14:48 | US_ITS ---
PROCEDURE INFORMATION: Exam: US Right Breast, Complete Exam date and time: 07/15/2025 2:39 PM Age: 44 years old Clinical indication: Follow-up from prior following right breast FNA with benign cytology TECHNIQUE: Imaging protocol: Complete ultrasound of all four quadrants of the right breast and the retroareolar regions, including ultrasound of the axilla when performed. COMPARISON: US BIOPSY BREAST RT 06/07/2024 8:54 AM FINDINGS: ULTRASOUND: Breast ultrasound findings: The right breast is evaluated with ultrasound. At 11 o'clock, 4 cm from nipple there is a probable complicated cyst measuring 0.4 x 0.4 x 0.2 cm immediately deep to the skin surface, new since prior. The previously seen left breast complicated cyst which was aspirated is no longer visualized. IMPRESSION: Probable complicated cyst in the right breast at 11 o'clock is probably benign. Recommend six-month follow-up right breast ultrasound to ensure stability. ASSESSMENT: BI-RADS Category 3: Probably benign.
== END 2025-07-15 23:59 | disposition home or self-care (01) ==
LOC: RAD 14:46
PROVIDERS: PCP Physician Assistant; Visit Provider Physician Assistant
DX: N63.11 Unspecified lump in the right breast, upper outer quadrant (principal)
CPT/HCPCS: 76641

== ENCOUNTER 2025-08-02 15:00 | Outpatient (RCR) | payer OTHER, SELFPAY | END 2025-08-02 23:59 | disposition home or self-care (01) | LOC: PT.CARL 15:00 | PROVIDERS: PCP Physician Assistant; Visit Provider Physician Assistant | DX: M25.561 Pain in right knee (principal); M25.361 Other instability, right knee | CPT/HCPCS: 97032; 97035; 97110; 97530 ==